=== PATIENT | male | born 1975 | race Caucasian/White ===

== ENCOUNTER 2019-06-27 22:59 | Inpatient (IN) ==
[2019-06-27] MEDS ORDERED: ACTIDOSE WITH SORBITOL ONE (23:19)
[2019-06-27] MEDS ORDERED: ACTIDOSE WITH SORBITOL NG ONE (23:22)
--- NOTE | 2019-06-27 23:38 | DR.PSYCH ---
HPI Time Seen Time Seen by Provider: 06/27/19 23:19 Complaint Chief Complaint Doctors Comments: Patient brought in via EMS stating he took almost a whole bottle of Benadryl 25mg with a count on 365. Patient's program development manager is here and states he saw the patient and his a Kaznachey tonight and he said he said he was tired of living like this and he encouraged him to pray but states he was drinking at the time and he promised him he would go home and go to bed but an hour and a half later his called stating she called the ambulance because he had taken a bottle of Benadryl around six o'clock. EMS states that he told them he did not want to live. states he got into trouble with the law and they were on their way to get him and he took a bottle of Benadryl. Patient states that is why he took the Benadryl and he was trying to kill himself. states he took an over dose of Tylenol in the past and has had problems with depression. Self Treatment fo Chief Complaint: none Reviewed Nurses Notes Review: Yes Source History Provided: EMS and Other (program development manager) Mode of Arrival Mode of Arrival: EMS Timing Onset of Chief Complaint: 06/27/19 Came on: Suddenly Duration Duration: Constant How lon Duration: Hours Context Presents With: Depression Ideation: Suicidal Plan: Overdose Stressors: Family History of: Depression Quality Quality: None Severity Severity: Able to care for self Associated signs and symptoms Intoxification: ETOH ROS Review of Systems Constitutional: No Symptoms Reported Eyes: No Symptoms Reported ENTM: No Symptoms Reported Respiratoy: No Symptoms Reported Cardiovascular: No Symptoms Reported Gastrointestinal/Abdominal: No Symptoms Reported Genitourinary: No Symptoms Reported Neurological: Depressed Musculoskeletal: No Symptoms Reported Integumentary: No Symptoms Reported Hematologic/Lymphatic: No Symptoms Reported Endocrine: No Symptoms Reported Psychiatric: Depression PE Vitals Vitals: Temperature 96.9 F Pulse Rate 102 Respiratory Rate 20 Blood Pressure 178/114 O2 Sat by Pulse Oximetry 99 General Limitations: Altered Mental Status General Appearance: Appears Intoxicated, In Distress and Obese Head Head Exam: Normal Inspection, Atraumatic and Normocephalic Head Exam Physical: negative Laceration, Abrasion, Contusion, Hematoma, Raccoon Eyes, Boateng's Sign, Tenderness of Temporal Artery, CSF Rhinorrhea, CSF Otorrhea and Other Eyes Eye exam: Normal Appearance, PERRL and EOMI; negative Scleral Icterus, Conjunctival Injection, Nystagmus, Miosis, Mydrasis, Periorbital Swelling, Periorbital Tenderness and Other Pupils: Regular, Round: Bilateral and Reactive: Bilateral Sclera/Conjunctival: Normal Inspection: Bilateral ENT ENT Exam: Normal Exam, Normal Oropharynx, Normal External Ear Exam, Mucous Membranes Moist and TM's Normal Bilaterally Neck Neck Exam: Normal Inspection, Full ROM and Trachea Midline Chest Chest Inspection: Normal Inspection and Symmetric Chest Wall Rise Respiratory Respiratory Exam: Normal Lung Sounds Bilat; negative Accessory Muscle Use, Chest Wall Tenderness, Prolonged Expiratory Phase, Respiratory Distress, Stridor and Other Respiratory Exam: Bilateral: Clear to Auscultation Cardiovascular Cardiovascular Exam: Regular Rate, Normal Rhythm, Tachycardia and Normal Heart Sounds Abdominal Exam Abdominal Exam: Normal Inspection, Normal Bowel Sounds and Soft; negative Distention, Tenderness, Guarding, Rebound, Rigidity, Dimnished Bowel Sounds, Hyperactive Bowel Sounds, Hypoactive Bowel Sounds, Organomegaly, Trauma, Incision, Ascites, Mass, Bruit, Pulsatile Mass, Hernia and Other Abdominal Tenderness: negative RUQ, RLQ, LUQ, LLQ, Epigastrium, Suprapubic, Diffuse, Mild, Moderate, Severe and Other Extremities Extremities Exam: Normal Inspection, Full ROM and Normal Capillary Refill; negative Tenderness, Edema, Joint Swelling, Calf Tenderness and Other Back Back Exam: Normal Inspection and Full ROM; negative Tenderness, (R) CVA Tenderness, (L) CVA Tenderness, Muscle Spasm, Paraspinal Tenderness, Vertebral Tenderness, Rashes, (R) Sciatic Notch Tenderness, (L) Sciatic Notch Tendern, (R) Straight Leg Raise, (L) Straight Leg Raise and Other Neurologic Neurological Exam: Oriented X3 (patient will not consistently answer questions), CN II-XII Intact, Normal Gait (gait not tested) and Reflexes Normal Patient Oriented To: Person Cranial Nerve Exam: EOM Function (II, III, IV, ): Normal, Facial Palsy (VII): Normal and Gag reflex (XI): Normal Cerebellar Function: Normal Gait (gait not tested) Motor Strength - LUE: 5/5 Motor Strength - RUE: 5/5 Motor Strength - LLE: 5/5 Motor Strength - RLE: 5/5 Sensory Exam Upper Extremity: Light Touch: Normal Sensory Exam Lower Extremity: Light Touch: Normal and 2 Point Discrimination: Normal DTR: bicep (L): 2+, bicep (R): 2+, Patellar (L): 3+ and patellar (R): 3+ Psychiatric Psychiatric Exam: Depressed and Suicidal Ideation Expanded Psychiatric Exam: Poor Eye Contact, Uncooperative and Refuses to Answer Skin Skin Exam: Warm, Dry, Intact and Normal Color Type of Lesion: negative Rash, Abscess, Laceration, Foreign Body, Bite/Sting, Abrasion and Other Distribution: negative Generalized, Involves Palms/Soles, Head, Face, Neck, Thorax, Chest, Back, Abdomen, Genitals, LUE, LLE, RUE, RLE and Other ROR Labs Reviewed Result Diagrams: 06/27/19 23:33 06/27/19 23:33 Laboratory: WBC 10.5 X10^3/uL (3.6-10.0) H 06/27/19 23:33 RBC 4.36 X10^6/uL (4.7-6.0) L 06/27/19 23: Hgb 14.6 g/dL (13.5-18.0) 06/27/19 23:33 Hct 42.2 % (42.0-54.0) 06/27/19 23: MCV 96.7 fL (80.0-100.0) 06/27/19 23: MCH 33.6 pg (27.0-34.0) 06/27/19 23: MCHC 34.7 g/dL (33.0-35.0) 06/27/19 23: RDW 13.9 % (11.6-16.5) 06/27/19 23: Plt Count 301 X10^3/uL (150.0-450.0) 06/27/19 23: MPV 8.0 fL (7.4-11.0) 06/27/19 23:33 Neut % (Auto) 71.2 % (42.0-75.0) 06/27/19 23: Lymph % (Auto) 18.5 % (21.0-51.0) L 06/27/19 23: [place] % (Auto) 9.7 % (0.0-13.0) 06/27/19 23: Eos % (Auto) 0.1 % (0.9-2.9) L 06/27/19 23:33 Baso % (Auto) 0.5 % (0.2-1.0) 06/27/19 23:33 Neut # (Auto) 7.4 x10^3/uL (2.2-4.8) H 06/27/19 23:33 Lymph # (Auto) 1.9 X10^3/uL (1.3-2.9) 06/27/19 23:33 [place] # (Auto) 1.0 x10^3/uL (0.3-0.8) H 06/27/19 23:33 Eos # (Auto) 0.0 x10^3/uL (0.0-0.2) 06/27/19 23: Baso # (Auto) 0.1 X10^3/uL (0.0-0.1) 06/27/19 23:33 Absolute Nucleated RBC 0.1 /100WBC 06/27/19 23:33 PT 12.2 SECONDS (11.8-14.3) 06/27/19 23:33 INR Target Range - 06/27/19 23: INR 0.94 (0.8-1.3) 06/27/19 23:33 APTT 23.0 SECONDS (22.9-36.5) 06/27/19 23:33 PTT Comment - 06/27/19 23:33 Sodium 141 mmol/L (136-145) 06/27/19 23:33 Corrected Sodium 141 mmol/L (136-145) 06/27/19 23:33 Potassium 2.9 mmol/L (3.5-5.1) L* 06/27/19 23:33 Chloride 101 mmol/L (98-107) 06/27/19 23:33 Carbon Dioxide 25.9 mmol/L (21-32) 06/27/19 23:33 BUN 15 mg/dL (7-18) 06/27/19 23:33 Creatinine 1.14 mg/dL (0.70-1.30) 06/27/19 23:33 Est GFR (MDRD) Af Amer > 60 (>60) 06/27/19 23:33 Est GFR (MDRD) Non-Af > 60 (>60) 06/27/19 23:33 Glucose 112 mg/dL (65-99) H 06/27/19 23:33 Calcium 8.7 mg/dL (8.5-10.1) 06/27/19 23:33 Corrected Calcium TNP 06/27/19 23:33 Magnesium 2.2 mg/dL (1.7-2.9) 06/27/19 23:33 Total Bilirubin 0.40 mg/dL (0.2-1.0) 06/27/19 23:33 AST 52 Units/L (15-37) H 06/27/19 23:33 ALT 86 Units/L (12-78) H 06/27/19 23:33 Alkaline Phosphatase 84 Units/L (46-116) 06/27/19 23:33 Creatine Kinase 286 Units/L (39-308) 06/27/19 23:33 CK-MB (CK-2) 2.1 ng/mL (0-4.0) 06/27/19 23:33 CK/CKMB % Calc 0.7 % (<4) 06/27/19 23:33 Troponin I < 0.02 ng/mL (0-1.5) 06/27/19 23:33 Total Protein 8.1 g/dL (6.4-8.2) 06/27/19 23:33 Albumin 4.3 g/dL (3.4-5.0) 06/27/19 23:33 Globulin 3.8 g/dL (2.5-4.5) 06/27/19 23:33 Albumin/Globulin Ratio 1.1 Ratio (1.1-2.1) 06/27/19 23:33 Specimen Type Catherized urine 06/27/19 23:50 Urine Color Yellow (YELLOW) 06/27/19 23:50 Urine Appearance Clear (CLEAR) 06/27/19 23:50 Urine pH 5.0 (5.0 - 8.0) 06/27/19 23:50 Ur Specific [place] 1.020 (1.000-1.030) 06/27/19 23:50 Urine Protein 2+ (NEGATIVE) 06/27/19 23:50 Urine Glucose (UA) Negative (NEGATIVE) 06/27/19 23:50 Urine Ketones 2+ (NEGATIVE) 06/27/19 23:50 Urine Occult Blood Negative (NEGATIVE) 06/27/19 23:50 Urine Nitrite Negative (NEGATIVE) 06/27/19 23:50 Urine Bilirubin Negative (NEGATIVE) 06/27/19 23:50 Urine Urobilinogen Normal (NORMAL) 06/27/19 23:50 Ur Leukocyte Esterase Negative (NEGATIVE) 06/27/19 23:50 Urine RBC 3-5 /HPF (0-3) A 06/27/19 23:50 Urine WBC None seen /HPF (0-5) 06/27/19 23:50 Ur Squamous Epith Cells Rare /HPF (NEGATIVE) 06/27/19 23:50 Urine Bacteria Negative /HPF (NEGATIVE) 06/27/19 23:50 Ur Culture Indicated? No/not indicated 06/27/19 23:50 Salicylates < 2.8 mg/dL (2.8-20) L 06/27/19 23:33 Urine Opiates Screen Negative (NEG=<300) 06/27/19 23:50 Urine Methadone Screen Negative (NEG=<300) 06/27/19 23:50 Acetaminophen 0.0 ug/mL (10-30) L 06/27/19 23:33 Ur Barbiturates Screen Negative (NEG=<200) 06/27/19 23:50 Ur Phencyclidine Scrn Negative (NEG=<25) 06/27/19 23:50 Ur Amphetamines Screen Negative (NEG=<1000) 06/27/19 23:50 U Benzodiazepines Scrn Negative (NEG=<200) 06/27/19 23:50 Urine Cocaine Screen Negative (NEG=<300) 06/27/19 23:50 U Marijuana (THC) Screen Negative (NEG=<50) 06/27/19 23:50 Ethyl Alcohol mg/dL 156 mg/dL (0-19.9) H 06/27/19 23:33 XRAY XRAY Interpreted by: Radiologist XRAY Findings: CXR: No acute cardiopulmonary process. Satisfactory position of catheter EKG Rate: 109 [place]: Normal Rhythm: NSR and ST Hypertrophy: LAE ST: Nonsp Opioid Opioid Risk Tool Total: 0 Total Score Risk Category: Low Risk Copyright: Jhon PARKER predicting aberrant behaviors
[2019-06-27 23:44] LABS: BASOPHILS # (AUTO) 0.1 X10^3/uL (0.0-0.1); BASOPHILS % (AUTO) 0.5 % (0.2-1.0); EOSINOPHILS % (AUTO) 0.1 % (0.9-2.9); HEMATOCRIT 42.2 % (42.0-54.0); HEMOGLOBIN 14.6 g/dL (13.5-18.0); LYMPHOCYTES # (AUTO) 1.9 X10^3/uL (1.3-2.9); LYMPHOCYTES % (AUTO) 18.5 % (21.0-51.0); MEAN CORPUSCULAR HEMOGLOBIN 33.6 pg (27.0-34.0); MEAN CORPUSCULAR HGB CONC 34.7 g/dL (33.0-35.0); MEAN CORPUSCULAR VOLUME 96.7 fL (80.0-100.0); MONOCYTES % (AUTO) 9.7 % (0.0-13.0); NEUTROPHILS # (AUTO) 7.4 x10^3/uL (2.2-4.8); NEUTROPHILS % (AUTO) 71.2 % (42.0-75.0); PLATELET COUNT 301 X10^3/uL (150.0-450.0); RED BLOOD COUNT 4.36 X10^6/uL (4.7-6.0); RED CELL DISTRIBUTION WIDTH 13.9 % (11.6-16.5); WHITE BLOOD COUNT 10.5 X10^3/uL (3.6-10.0)
[2019-06-27] MEDS ORDERED: NS 1000 ML 1,000 ML IV SCH (23:45)
--- NOTE | 2019-06-27 23:55 | RAD ---
HISTORYChest painSTUDYCHEST, 1 VIEWCOMPARISONNoneFINDINGSThe enteric catheter extends below the diaphragm with distal tip projecting near the gastric fundus. Lungs are clear. No consolidation or effusion. Heart size is accentuated by low lung volumes, likely within normal limits. No pulmonary vasculature congestion. No acute osseous findings.IMPRESSIONSatisfactory position of enteric catheter. No acute cardiopulmonary process.Electronically signed by: Landon Ty (Jun 27, 2019 23:54:10)
[2019-06-28 00:03] LABS: ALANINE AMINOTRANSFERASE 86 Units/L (12-78); ALBUMIN 4.3 g/dL (3.4-5.0); ALKALINE PHOSPHATASE 84 Units/L (46-116); ASPARTATE AMINO TRANSFERASE 52 Units/L (15-37); BLOOD UREA NITROGEN 15 mg/dL (7-18); CALCIUM 8.7 mg/dL (8.5-10.1); CARBON DIOXIDE 25.9 mmol/L (21-32); CHLORIDE 101 mmol/L (98-107); CKMB % 0.7 % (<4); COR NA(FOR HYPERGLY) 141 mmol/L (136-145); CREATINE KINASE 286 Units/L (39-308); CREATINE KINASE MB 2.1 ng/mL (0-4.0); CREATININE 1.14 mg/dL (0.70-1.30); MAGNESIUM 2.2 mg/dL (1.7-2.9); SODIUM 141 mmol/L (136-145); TOTAL PROTEIN 8.1 g/dL (6.4-8.2); TROPONIN I < 0.02 ng/mL (0-1.5); eGFR NON BLACK RACES > 60 (>60)
[2019-06-28] MEDS ORDERED: K-LYTE EFFERVESCENT PO ONE (00:09)
[2019-06-28 00:24] LABS: SALICYLATE < 2.8 mg/dL (2.8-20)
[2019-06-28 00:50] LABS: APPEARANCE,URINE CLEAR (CLEAR); COLOR,URINE YELLOW (YELLOW)
[2019-06-28 00:53] LABS: GLUCOSE, URINE NEGATIVE (NEGATIVE); KETONES,URINE 2+ (NEGATIVE); PROTEIN,URINE 2+ (NEGATIVE)
[2019-06-28 00:54] LABS: BILIRUBIN,URINE NEGATIVE (NEGATIVE); BLOOD/HEMOGLOBIN,URINE NEGATIVE (NEGATIVE); LEUKOCYTE ESTERASE ,URINE NEGATIVE (NEGATIVE); NITRITES,URINE NEGATIVE (NEGATIVE); UROBILINOGEN,URINE NORMAL (NORMAL)
[2019-06-28 00:55] LABS: BACTERIA,URINE NEGATIVE /HPF (NEGATIVE); SQUAMOUS EPITHELIAL CELL,UR RARE /HPF (NEGATIVE)
[2019-06-28] MEDS ORDERED: HumuLIN R SC PRN (01:19)
[2019-06-28] MEDS ORDERED: K-LYTE EFFERVESCENT ONE (01:27)
[2019-06-28] MEDS ORDERED: D5 1/2 NS + KCL 20 MEQ/L 1,000 ML IV ONE (03:38)
[2019-06-28] MEDS: D5 1/2 NS + KCL 20 MEQ/L 1,000 ML IV SCH ×2 (04:53→19:28)
[2019-06-28 06:25] VITALS: BMI 28.3
[2019-06-28 06:36] LABS: BASOPHILS % (AUTO) 0.4 % (0.2-1.0); HEMATOCRIT 41.9 % (42.0-54.0); HEMOGLOBIN 14.5 g/dL (13.5-18.0); LYMPHOCYTES # (AUTO) 1.2 X10^3/uL (1.3-2.9); LYMPHOCYTES % (AUTO) 14.1 % (21.0-51.0); MEAN CORPUSCULAR HEMOGLOBIN 33.7 pg (27.0-34.0); MEAN CORPUSCULAR HGB CONC 34.7 g/dL (33.0-35.0); MEAN PLATELET VOLUME 8.2 fL (7.4-11.0); MONOCYTES # (AUTO) 0.9 x10^3/uL (0.3-0.8); MONOCYTES % (AUTO) 10.5 % (0.0-13.0); NEUTROPHILS # (AUTO) 6.4 x10^3/uL (2.2-4.8); PLATELET COUNT 279 X10^3/uL (150.0-450.0); RED BLOOD COUNT 4.32 X10^6/uL (4.7-6.0); RED CELL DISTRIBUTION WIDTH 14.1 % (11.6-16.5); WHITE BLOOD COUNT 8.5 X10^3/uL (3.6-10.0)
[2019-06-28 06:37] LABS: ALANINE AMINOTRANSFERASE 83 Units/L (12-78); ALBUMIN 4.2 g/dL (3.4-5.0); ALKALINE PHOSPHATASE 81 Units/L (46-116); ASPARTATE AMINO TRANSFERASE 51 Units/L (15-37); BLOOD UREA NITROGEN 12 mg/dL (7-18); CALCIUM 8.9 mg/dL (8.5-10.1); CARBON DIOXIDE 24.5 mmol/L (21-32); CHLORIDE 101 mmol/L (98-107); CHOL/HDL RATIO 2.9 (0.0-5.0); CHOLESTEROL 227 mg/dL (0-200); CKMB % 0.6 % (<4); CREATINE KINASE 343 Units/L (39-308); CREATINE KINASE MB 2.1 ng/mL (0-4.0); CREATININE 1.04 mg/dL (0.70-1.30); HDL CHOLESTEROL 79 mg/dL (40-60); SODIUM 140 mmol/L (136-145); TOTAL PROTEIN 8.1 g/dL (6.4-8.2); TRIGLYCERIDES 154 mg/dL (0-150); TROPONIN I < 0.02 ng/mL (0-1.5); eGFR NON BLACK RACES > 60 (>60)
[2019-06-28] MEDS ORDERED: K-DUR TAB 20 MEQ PO PRN (08:02)
[2019-06-28] MEDS ORDERED: KLOR-CON PO PRN (08:02)
[2019-06-28] MEDS ORDERED: POTASSIUM CHL 60 MEQ/NS 0.45% 500 ML IV PRN (08:02)
[2019-06-28] MEDS ORDERED: MICRO K EXTEN CAP 10 MEQ PO PRN (08:02)
[2019-06-28] MEDS ORDERED: POTASSIUM CHL 40 MEQ/NS 0.45% 500 ML IV PRN (08:02)
[2019-06-28] MEDS ORDERED: MAGNESIUM SULFATE 1 GRAM/100 mL PREMIX 1 GM/100 ML BAG IV PRN (08:02)
[2019-06-28] MEDS ORDERED: K-RIDER 10 MEQ/NS 100 ML 10 MEQ/100 ML BAG IV PRN (08:02)
[2019-06-28] MEDS ORDERED: POTASSIUM CHLORIDE LIQ 20 MEQ UDC ONE (08:09)
[2019-06-28] MEDS ORDERED: ATIVAN TAB 0.5 MG ONE (08:10)
[2019-06-28] MEDS ORDERED: MAGNESIUM SULFATE 1 GRAM/100 mL PREMIX 1 G/100 ML BAG IV ONE (08:10)
[2019-06-28] MEDS: ATIVAN TAB 1 MG PO PRN ×3 (08:12→21:05)
[2019-06-28] MEDS: POTASSIUM CHLORIDE LIQ 20 MEQ UDC PO PRN ×2 (08:14→14:29)
--- NOTE | 2019-06-28 10:05 | DR.H&P ---
H&P History & Physical for Day of: H&P Date: 06/28/19 Chief Complaint Chief Complaint: Overdose Allergies Allergies Allergy/AdvReac Type Severity Reaction Status Date / Time shellfish derived Allergy Verified 06/27/19 23:54 History of Present Illness History of Present Illness: Pt is a 44 yo m pmhx MDD, Alcohol/Drug abuse(1/2 gallon whisky every 3 days or less, occasional use of cocaine) admitted after having intentional overdose on Benadryl. Pt has history of depression and earlier yesterday afternoon was speaking to [employer] [employer] and had considered going to [facility] rehab. However, when he went home that night he started drinking and per was "in trouble with the law". Law enforcement was on the way to the house that triggered him to intentionally overdose on Benadryl. He took unknown amount but states "most of bottle" of Benadryl 25mg and had stated it was to "end his life". He has had an event like this in the past but with Tylenol. He is on an antidepressant Lexapro, but admits to not taking for the past 3 days. Initial labs: K 2.9, CK 286, AST 52, ALT 86. CXR negative. Poison control was reached that recommended monitoring and keeping K>4.0, magnesium wnl, and monitoring QRS on Ekg. Will continue to monitor and follow up labs in morning. Past Medical History Past Medical History: CHF and Depression Family History Family Medical History: Diabetes Mellitus, Cancer, MD and Sudden Cardiac Social History Have you used tobacco products in the last 12 months: No Type of Tobacco Use: None Does any household member use tobacco: No Alcohol Use: Heavy and DAILY Drug Use: Prescription Drugs Medications Home Medications: shellfish derived Allergy (Verified 06/27/19 23:54) CONTINUE taking the following medications carvedilol 6.25 mg PO BID 06/27/19 [History] escitalopram oxalate 20 mg PO DAILY 06/27/19 [History] lisinopril 2.5 mg PO DAILY 06/27/19 [History] quetiapine 100 mg PO HS 06/27/19 [History] tamsulosin [Flomax] 0.4 mg PO QHS 06/27/19 [History] Labs Result Diagrams: 06/28/19 04:18 06/28/19 04:18 Labs: Laboratory WBC 8.5 X10^3/uL (3.6-10.0) 06/28/19 04:18 RBC 4.32 X10^6/uL (4.7-6.0) L 06/28/19 04:18 Hgb 14.5 g/dL (13.5-18.0) 06/28/19 04:18 Hct 41.9 % (42.0-54.0) L 06/28/19 04:18 MCV 97.0 fL (80.0-100.0) 06/28/19 04:18 MCH 33.7 pg (27.0-34.0) 06/28/19 04:18 MCHC 34.7 g/dL (33.0-35.0) 06/28/19 04:18 RDW 14.1 % (11.6-16.5) 06/28/19 04:18 Plt Count 279 X10^3/uL (150.0-450.0) 06/28/19 04:18 MPV 8.2 fL (7.4-11.0) 06/28/19 04:18 Neut % (Auto) 75.0 % (42.0-75.0) 06/28/19 04:18 Lymph % (Auto) 14.1 % (21.0-51.0) L 06/28/19 04:18 [place] % (Auto) 10.5 % (0.0-13.0) 06/28/19 04:18 Eos % (Auto) 0.0 % (0.9-2.9) L 06/28/19 04:18 Baso % (Auto) 0.4 % (0.2-1.0) 06/28/19 04:18 Neut # (Auto) 6.4 x10^3/uL (2.2-4.8) H 06/28/19 04:18 Lymph # (Auto) 1.2 X10^3/uL (1.3-2.9) L 06/28/19 04:18 [place] # (Auto) 0.9 x10^3/uL (0.3-0.8) H 06/28/19 04:18 Eos # (Auto) 0.0 x10^3/uL (0.0-0.2) 06/28/19 04:18 Baso # (Auto) 0.0 X10^3/uL (0.0-0.1) 06/28/19 04:18 Absolute Nucleated RBC 0.0 /100WBC 06/28/19 04:18 PT 12.4 SECONDS (11.8-14.3) 06/28/19 04:18 INR Target Range - 06/28/19 04:18 INR 0.96 (0.8-1.3) 06/28/19 04:18 APTT 23.2 SECONDS (22.9-36.5) 06/28/19 04:18 PTT Comment - 06/28/19 04:18 Sodium 140 mmol/L (136-145) 06/28/19 04:18 Corrected Sodium TNP 06/28/19 04:18 Potassium 3.2 mmol/L (3.5-5.1) L 06/28/19 04:18 Chloride 101 mmol/L (98-107) 06/28/19 04:18 Carbon Dioxide 24.5 mmol/L (21-32) 06/28/19 04:18 BUN 12 mg/dL (7-18) 06/28/19 04:18 Creatinine 1.04 mg/dL (0.70-1.30) 06/28/19 04:18 Est GFR (MDRD) Af Amer > 60 (>60) 06/28/19 04:18 Est GFR (MDRD) Non-Af > 60 (>60) 06/28/19 04:18 Glucose 109 mg/dL (65-99) H 06/28/19 04:18 Calcium 8.9 mg/dL (8.5-10.1) 06/28/19 04:18 Corrected Calcium TNP 06/28/19 04:18 Magnesium 2.0 mg/dL (1.7-2.9) 06/28/19 04:18 Total Bilirubin 0.40 mg/dL (0.2-1.0) 06/28/19 04:18 AST 51 Units/L (15-37) H 06/28/19 04:18 ALT 83 Units/L (12-78) H 06/28/19 04:18 Alkaline Phosphatase 81 Units/L (46-116) 06/28/19 04:18 Creatine Kinase 343 Units/L (39-308) H 06/28/19 04:18 CK-MB (CK-2) 2.1 ng/mL (0-4.0) 06/28/19 04:18 CK/CKMB % Calc 0.6 % (<4) 06/28/19 04:18 Troponin I < 0.02 ng/mL (0-1.5) 06/28/19 04:18 Total Protein 8.1 g/dL (6.4-8.2) 06/28/19 04:18 Albumin 4.2 g/dL (3.4-5.0) 06/28/19 04:18 Globulin 3.9 g/dL (2.5-4.5) 06/28/19 04:18 Albumin/Globulin Ratio 1.1 Ratio (1.1-2.1) 06/28/19 04:18 Triglycerides 154 mg/dL (0-150) H 06/28/19 04:18 Cholesterol 227 mg/dL (0-200) H 06/28/19 04:18 LDL Cholesterol, Calc 117 mg/dL (0-100) H 06/28/19 04:18 HDL Cholesterol 79 mg/dL (40-60) H 06/28/19 04:18 Cholesterol/HDL Ratio 2.9 (0.0-5.0) 06/28/19 04:18 Specimen Type Catherized urine 06/27/19 23:50 Urine Color Yellow (YELLOW) 06/27/19 23:50 Urine Appearance Clear (CLEAR) 06/27/19 23:50 Urine pH 5.0 (5.0 - 8.0) 06/27/19 23:50 Ur Specific [place] 1.020 (1.000-1.030) 06/27/19 23:50 Urine Protein 2+ (NEGATIVE) 06/27/19 23:50 Urine Glucose (UA) Negative (NEGATIVE) 06/27/19 23:50 Urine Ketones 2+ (NEGATIVE) 06/27/19 23:50 Urine Occult Blood Negative (NEGATIVE) 06/27/19 23:50 Urine Nitrite Negative (NEGATIVE) 06/27/19 23:50 Urine Bilirubin Negative (NEGATIVE) 06/27/19 23:50 Urine Urobilinogen Normal (NORMAL) 06/27/19 23:50 Ur Leukocyte Esterase Negative (NEGATIVE) 06/27/19 23:50 Urine RBC 3-5 /HPF (0-3) A 06/27/19 23:50 Urine WBC None seen /HPF (0-5) 06/27/19 23:50 Ur Squamous Epith Cells Rare /HPF (NEGATIVE) 06/27/19 23:50 Urine Bacteria Negative /HPF (NEGATIVE) 06/27/19 23:50 Ur Culture Indicated? No/not indicated 06/27/19 23:50 Salicylates < 2.8 mg/dL (2.8-20) L 06/27/19 23:33 Urine Opiates Screen Negative (NEG=<300) 06/27/19 23:50 Urine Methadone Screen Negative (NEG=<300) 06/27/19 23:50 Acetaminophen 0.0 ug/mL (10-30) L 06/27/19 23:33 Ur Barbiturates Screen Negative (NEG=<200) 06/27/19 23:50 Ur Phencyclidine Scrn Negative (NEG=<25) 06/27/19 23:50 Ur Amphetamines Screen Negative (NEG=<1000) 06/27/19 23:50 U Benzodiazepines Scrn Negative (NEG=<200) 06/27/19 23:50 Urine Cocaine Screen Negative (NEG=<300) 06/27/19 23:50 U Marijuana (THC) Screen Negative (NEG=<50) 06/27/19 23:50 Ethyl Alcohol mg/dL 156 mg/dL (0-19.9) H 06/27/19 23:33 Review of Systems Constitutional: Weakness; denies Fever and Chills Eyes: No Symptoms Reported ENT: No Symptoms Reported Respiratory: No Symptoms Reported Gastrointestinal: Abdominal Pain (mild epigastric ) Genitourinary: No Symptoms Reported Musculoskeletal: No Symptoms Reported Skin: No Symptoms Reported Neurological: No Symptoms Reported Physical Exam Vital Signs: Temperature 99.8 F Pulse Rate [Right Brachial] 112 Pulse Rate 99 Respiratory Rate 19 Blood Pressure [Right Arm] 170/98 Blood Pressure 148/86 O2 Sat by Pulse Oximetry 93 Oriented: Normal Eyes: Normal Ear: Normal Nose: Normal Respiratory: Clear Throughout Cardiovascular: Normal : Normal Auscultation: Bowel Sounds: Normal Palpation: Normal Tenderness: Epigastric and Mild Skin: Normal Musculoskeletal: Normal Psychiatric: Anxiety and Depression Mood Description: Calm Affect: Depressed Speech Pattern: Clear Assessment/Plan (1) Drug ingestion: Status: Acute Plan: Intentional overdose on Benadryl Continue to monitor vitals, labs, and telemetry. (2) Depression with suicidal ideation: Status: Acute Plan: Will contact psych facility once patient is stable. (3) Acute hypokalemia: Status: Acute Plan: Per protocol (4) Alcohol intoxication: Status: Acute Plan: Ativan prn, monitor for withdrawals. Review H&P Reviewed: Yes Patient was examined?: Yes
[2019-06-28] MEDS ORDERED: LOVENOX INJ 100 MG SYR SC ONE (16:07)
[2019-06-28] MEDS ORDERED: TYLENOL 325 MG TAB PO ONE (16:07)
[2019-06-28] MEDS ORDERED: LEVAQUIN PREMIX IV 750 MG 0 MG/0 ML BAG IV ONE (16:07)
[2019-06-29] MEDS: D5 1/2 NS + KCL 20 MEQ/L 1,000 ML IV SCH ×3 (02:58→19:02)
[2019-06-29 07:11] LABS: BASOPHILS % (AUTO) 0.8 % (0.2-1.0); EOSINOPHILS # (AUTO) 0.1 x10^3/uL (0.0-0.2); HEMATOCRIT 37.6 % (42.0-54.0); HEMOGLOBIN 12.9 g/dL (13.5-18.0); LYMPHOCYTES # (AUTO) 1.7 X10^3/uL (1.3-2.9); LYMPHOCYTES % (AUTO) 30.5 % (21.0-51.0); MEAN CORPUSCULAR HEMOGLOBIN 33.3 pg (27.0-34.0); MEAN CORPUSCULAR HGB CONC 34.3 g/dL (33.0-35.0); MEAN PLATELET VOLUME 7.8 fL (7.4-11.0); MONOCYTES # (AUTO) 0.5 x10^3/uL (0.3-0.8); MONOCYTES % (AUTO) 9.2 % (0.0-13.0); NEUTROPHILS # (AUTO) 3.2 x10^3/uL (2.2-4.8); NEUTROPHILS % (AUTO) 58.5 % (42.0-75.0); PLATELET COUNT 212 X10^3/uL (150.0-450.0); RED BLOOD COUNT 3.88 X10^6/uL (4.7-6.0); WHITE BLOOD COUNT 5.5 X10^3/uL (3.6-10.0)
[2019-06-29 07:24] LABS: ALANINE AMINOTRANSFERASE 62 Units/L (12-78); ALBUMIN 3.5 g/dL (3.4-5.0); ALKALINE PHOSPHATASE 74 Units/L (46-116); ASPARTATE AMINO TRANSFERASE 30 Units/L (15-37); BLOOD UREA NITROGEN 11 mg/dL (7-18); CALCIUM 8.2 mg/dL (8.5-10.1); CARBON DIOXIDE 26.9 mmol/L (21-32); CHLORIDE 104 mmol/L (98-107); CREATININE 1.01 mg/dL (0.70-1.30); SODIUM 139 mmol/L (136-145); TOTAL PROTEIN 6.8 g/dL (6.4-8.2); eGFR NON BLACK RACES > 60 (>60)
--- NOTE | 2019-06-29 10:52 | PCM.PROG ---
Progress Note Progress Note for Day of Date of Exam: 06/29/19 Subjective Subjective: Pt is a 44 yo m pmhx MDD, Alcohol/Drug abuse(1/2 gallon whisky every 3 days or less, occasional use of cocaine) admitted after having intentional overdose on Benadryl. He is doing well this morning, resting comfortably. Quach catheter was removed yesterday. His vitals have remained stable, and his labs have improved with liver enzymes trending down to normal limits. Due to intentional overdose, he will need to be transferred to facility for further evaluation. Continue to monitor. Past Medical Family Social History Past Med/Fam/Surg Hx: No changes since H&P Allergies: Allergies shellfish derived Allergy (Verified 06/27/19 23:54) Review of Systems ROS: No change since H&P Vital Signs and I&O's Vital Signs: Temperature 98.7 F Pulse Rate [Right Brachial] 112 Pulse Rate 83 Respiratory Rate 15 Blood Pressure [Right Arm] 170/98 Blood Pressure 123/78 O2 Sat by Pulse Oximetry 98 Intake and Output: Intake & Output 06/26/19 06/27/19 06/28/19 06/29/19 23:59 23:59 23:59 23:59 Intake Total 1926 / 1926 927 / 927 Output Total 900 / 900 Balance 1026 / 1026 927 / 927 Physical Exam Oriented: Normal Eyes: Normal Ear: Normal Nose: Normal Respiratory: Normal Cardiovascular: Normal : Normal Auscultation: Bowel Sounds: Normal Tenderness: Normal Skin: Normal Musculoskeletal: Normal Psychiatric: Depression Mood Description: Calm Affect: Depressed Speech Pattern: Clear Laboratory and Diagnostics Result Diagrams: 06/29/19 06:45 06/29/19 06:45 Labs: Laboratory WBC 5.5 X10^3/uL (3.6-10.0) 06/29/19 06:45 RBC 3.88 X10^6/uL (4.7-6.0) L 06/29/19 06:45 Hgb 12.9 g/dL (13.5-18.0) L 06/29/19 06:45 Hct 37.6 % (42.0-54.0) L 06/29/19 06:45 MCV 97.0 fL (80.0-100.0) 06/29/19 06:45 MCH 33.3 pg (27.0-34.0) 06/29/19 06:45 MCHC 34.3 g/dL (33.0-35.0) 06/29/19 06:45 RDW 14.0 % (11.6-16.5) 06/29/19 06:45 Plt Count 212 X10^3/uL (150.0-450.0) 06/29/19 06:45 MPV 7.8 fL (7.4-11.0) 06/29/19 06:45 Neut % (Auto) 58.5 % (42.0-75.0) 06/29/19 06:45 Lymph % (Auto) 30.5 % (21.0-51.0) 06/29/19 06:45 [place] % (Auto) 9.2 % (0.0-13.0) 06/29/19 06:45 Eos % (Auto) 1.0 % (0.9-2.9) 06/29/19 06:45 Baso % (Auto) 0.8 % (0.2-1.0) 06/29/19 06:45 Neut # (Auto) 3.2 x10^3/uL (2.2-4.8) 06/29/19 06:45 Lymph # (Auto) 1.7 X10^3/uL (1.3-2.9) 06/29/19 06:45 [place] # (Auto) 0.5 x10^3/uL (0.3-0.8) 06/29/19 06:45 Eos # (Auto) 0.1 x10^3/uL (0.0-0.2) 06/29/19 06:45 Baso # (Auto) 0.0 X10^3/uL (0.0-0.1) 06/29/19 06:45 Absolute Nucleated RBC 0.0 /100WBC 06/29/19 06:45 PT 12.4 SECONDS (11.8-14.3) 06/28/19 04:18 INR Target Range - 06/28/19 04:18 INR 0.96 (0.8-1.3) 06/28/19 04:18 APTT 23.2 SECONDS (22.9-36.5) 06/28/19 04:18 PTT Comment - 06/28/19 04:18 Sodium 139 mmol/L (136-145) 06/29/19 06:45 Corrected Sodium TNP 06/29/19 06:45 Potassium 3.9 mmol/L (3.5-5.1) 06/29/19 06:45 Chloride 104 mmol/L (98-107) 06/29/19 06:45 Carbon Dioxide 26.9 mmol/L (21-32) 06/29/19 06:45 BUN 11 mg/dL (7-18) 06/29/19 06:45 Creatinine 1.01 mg/dL (0.70-1.30) 06/29/19 06:45 Est GFR (MDRD) Af Amer > 60 (>60) 06/29/19 06:45 Est GFR (MDRD) Non-Af > 60 (>60) 06/29/19 06:45 Glucose 108 mg/dL (65-99) H 06/29/19 06:45 POC Glucose (mg/dL) 114 mg/dL (65-99) H 06/29/19 06:24 Calcium 8.2 mg/dL (8.5-10.1) L 06/29/19 06:45 Corrected Calcium TNP 06/29/19 06:45 Magnesium 2.0 mg/dL (1.7-2.9) 06/29/19 06:45 Total Bilirubin 0.80 mg/dL (0.2-1.0) 06/29/19 06:45 AST 30 Units/L (15-37) 06/29/19 06:45 ALT 62 Units/L (12-78) 06/29/19 06:45 Alkaline Phosphatase 74 Units/L (46-116) 06/29/19 06:45 Creatine Kinase 343 Units/L (39-308) H 06/28/19 04:18 CK-MB (CK-2) 2.1 ng/mL (0-4.0) 06/28/19 04:18 CK/CKMB % Calc 0.6 % (<4) 06/28/19 04:18 Troponin I < 0.02 ng/mL (0-1.5) 06/28/19 04:18 Total Protein 6.8 g/dL (6.4-8.2) 06/29/19 06:45 Albumin 3.5 g/dL (3.4-5.0) 06/29/19 06:45 Globulin 3.3 g/dL (2.5-4.5) 06/29/19 06:45 Albumin/Globulin Ratio 1.1 Ratio (1.1-2.1) 06/29/19 06:45 Triglycerides 154 mg/dL (0-150) H 06/28/19 04:18 Cholesterol 227 mg/dL (0-200) H 06/28/19 04:18 LDL Cholesterol, Calc 117 mg/dL (0-100) H 06/28/19 04:18 HDL Cholesterol 79 mg/dL (40-60) H 06/28/19 04:18 Cholesterol/HDL Ratio 2.9 (0.0-5.0) 06/28/19 04:18 Specimen Type Catherized urine 06/27/19 23:50 Urine Color Yellow (YELLOW) 06/27/19 23:50 Urine Appearance Clear (CLEAR) 06/27/19 23:50 Urine pH 5.0 (5.0 - 8.0) 06/27/19 23:50 Ur Specific Bowman 1.020 (1.000-1.030) 06/27/19 23:50 Urine Protein 2+ (NEGATIVE) 06/27/19 23:50 Urine Glucose (UA) Negative (NEGATIVE) 06/27/19 23:50 Urine Ketones 2+ (NEGATIVE) 06/27/19 23:50 Urine Occult Blood Negative (NEGATIVE) 06/27/19 23:50 Urine Nitrite Negative (NEGATIVE) 06/27/19 23:50 Urine Bilirubin Negative (NEGATIVE) 06/27/19 23:50 Urine Urobilinogen Normal (NORMAL) 06/27/19 23:50 Ur Leukocyte Esterase Negative (NEGATIVE) 06/27/19 23:50 Urine RBC 3-5 /HPF (0-3) A 06/27/19 23:50 Urine WBC None seen /HPF (0-5) 06/27/19 23:50 Ur Squamous Epith Cells Rare /HPF (NEGATIVE) 06/27/19 23:50 Urine Bacteria Negative /HPF (NEGATIVE) 06/27/19 23:50 Ur Culture Indicated? No/not indicated 06/27/19 23:50 Salicylates < 2.8 mg/dL (2.8-20) L 06/27/19 23:33 Urine Opiates Screen Negative (NEG=<300) 06/27/19 23:50 Urine Methadone Screen Negative (NEG=<300) 06/27/19 23:50 Acetaminophen 0.0 ug/mL (10-30) L 06/27/19 23:33 Ur Barbiturates Screen Negative (NEG=<200) 06/27/19 23:50 Ur Phencyclidine Scrn Negative (NEG=<25) 06/27/19 23:50 Ur Amphetamines Screen Negative (NEG=<1000) 06/27/19 23:50 U Benzodiazepines Scrn Negative (NEG=<200) 06/27/19 23:50 Urine Cocaine Screen Negative (NEG=<300) 06/27/19 23:50 U Marijuana (THC) Screen Negative (NEG=<50) 06/27/19 23:50 Ethyl Alcohol mg/dL 156 mg/dL (0-19.9) H 06/27/19 23:33 Plan (1) Drug ingestion: Status: Acute Plan: Intentional overdose on Benadryl Continue to monitor vitals, labs, and telemetry. (2) Depression with suicidal ideation: Status: Acute Plan: Will contact psych facility once patient is stable. (3) Acute hypokalemia: Status: Acute Plan: Per protocol (4) Alcohol intoxication: Status: Acute Plan: Ativan prn, monitor for withdrawals.
[2019-06-29] MEDS: ATIVAN TAB 1 MG PO PRN ×2 (16:18→22:46)
[2019-06-29] MEDS ORDERED: AFLURIA II4 or FLUARIX II4 IM ONE ×2 (17:42→17:49)
[2019-06-29] MEDS ORDERED: TYLENOL 325 MG TAB PO PRN (22:12)
[2019-06-29] MEDS ORDERED: TYLENOL 325 MG TAB PO ONE (22:16)
[2019-06-30] MEDS: D5 1/2 NS + KCL 20 MEQ/L 1,000 ML IV SCH (06:20)
--- NOTE | 2019-06-30 08:33 | W.DIS.FURT ---
Summary of Discharge Discharge Summary of Date Date of Exam: 06/30/19 Admission Date Date of Admission: 06/27/19 Admission Diagnosis Hospital Course: Pt is a 44 yo m pmhx MDD, Alcohol/Drug abuse(1/2 gallon whisky every 3 days or less, occasional use of cocaine) admitted for intentional overdose on Benadryl. His hospital course involved monitoring vitals and labs. He remained stable and his labs improved, including his liver enzymes that were mildly elevated on admission, trended down to normal limits. Due to intentional overdose, [facility] [place] [place] [facility] Vital Signs: Vital Signs (72 hours) 06/27/19 23:05 06/28/19 00:00 06/28/19 01:00 Temperature 96.9 F L Pulse Rate 102 H Pulse Rate [Right Brachial] 126 H 112 H Respiratory Rate 20 22 25 H Blood Pressure 178/114 Blood Pressure [Right Arm] 174/108 170/98 O2 Sat by Pulse Oximetry 99 99 95 06/28/19 03:50 06/28/19 04:00 06/28/19 04:06 Temperature Pulse Rate 101 H 101 H 103 H Pulse Rate [Right Brachial] Respiratory Rate 21 22 19 Blood Pressure 149/92 Blood Pressure [Right Arm] O2 Sat by Pulse Oximetry 95 94 L 94 L 06/28/19 05:00 06/28/19 06:00 06/28/19 07:00 Temperature Pulse Rate 105 H 95 H 97 H Pulse Rate [Right Brachial] Respiratory Rate 14 9 L 18 Blood Pressure 162/90 155/88 143/80 Blood Pressure [Right Arm] O2 Sat by Pulse Oximetry 95 94 L 92 L 06/28/19 08:00 06/28/19 09:00 06/28/19 10:00 Temperature 99.8 F H Pulse Rate 100 H 99 H 98 H Pulse Rate [Right Brachial] Respiratory Rate 12 19 19 Blood Pressure 149/88 148/86 142/81 Blood Pressure [Right Arm] O2 Sat by Pulse Oximetry 92 L 93 L 93 L 06/28/19 11:00 06/28/19 11:06 06/28/19 12:00 Temperature Pulse Rate 103 H 94 H 93 H Pulse Rate [Right Brachial] Respiratory Rate 17 16 16 Blood Pressure 141/84 136/78 Blood Pressure [Right Arm] O2 Sat by Pulse Oximetry 94 L 93 L 93 L 06/28/19 13:00 06/28/19 14:00 06/28/19 15:00 Temperature Pulse Rate 99 H 112 H 104 H Pulse Rate [Right Brachial] Respiratory Rate 16 15 19 Blood Pressure 141/87 145/90 143/87 Blood Pressure [Right Arm] O2 Sat by Pulse Oximetry 93 L 98 98 06/28/19 16:00 06/28/19 17:08 06/28/19 17:09 Temperature Pulse Rate 98 H 91 H 95 H Pulse Rate [Right Brachial] Respiratory Rate 19 9 L Blood Pressure 136/79 137/82 Blood Pressure [Right Arm] O2 Sat by Pulse Oximetry 99 95 06/28/19 18:00 06/28/19 19:00 06/28/19 20:00 Temperature 98.8 F Pulse Rate 97 H 93 H 100 H Pulse Rate [Right Brachial] Respiratory Rate 16 18 19 Blood Pressure 138/84 133/84 Blood Pressure [Right Arm] O2 Sat by Pulse Oximetry 93 L 97 100 06/28/19 20:02 06/28/19 21:00 06/28/19 22:00 Temperature Pulse Rate 93 H 95 H 94 H Pulse Rate [Right Brachial] Respiratory Rate 28 H 13 19 Blood Pressure 131/83 132/78 140/86 Blood Pressure [Right Arm] O2 Sat by Pulse Oximetry 99 96 98 06/28/19 23:00 06/29/19 00:00 06/29/19 01:00 Temperature Pulse Rate 93 H 89 90 Pulse Rate [Right Brachial] Respiratory Rate 22 19 28 H Blood Pressure 155/96 131/76 126/74 Blood Pressure [Right Arm] O2 Sat by Pulse Oximetry 95 96 06/29/19 02:00 06/29/19 03:00 06/29/19 04:00 Temperature 98.7 F Pulse Rate 84 88 81 Pulse Rate [Right Brachial] Respiratory Rate 22 20 15 Blood Pressure 124/67 135/85 131/86 Blood Pressure [Right Arm] O2 Sat by Pulse Oximetry 100 97 06/29/19 05:00 06/29/19 06:00 06/29/19 07:00 Temperature Pulse Rate 97 H 84 84 Pulse Rate [Right Brachial] Respiratory Rate 23 45 H 19 Blood Pressure Blood Pressure [Right Arm] O2 Sat by Pulse Oximetry 97 98 97 06/29/19 08:00 06/29/19 09:00 06/29/19 09:02 Temperature Pulse Rate 83 81 83 Pulse Rate [Right Brachial] Respiratory Rate 19 21 15 Blood Pressure 123/78 Blood Pressure [Right Arm] O2 Sat by Pulse Oximetry 95 96 98 06/29/19 10:00 06/29/19 11:00 06/29/19 12:00 Temperature 98.2 F Pulse Rate 78 86 77 Pulse Rate [Right Brachial] Respiratory Rate 13 16 10 L Blood Pressure 144/83 130/82 124/71 Blood Pressure [Right Arm] O2 Sat by Pulse Oximetry 94 L 97 95 06/29/19 13:00 06/29/19 14:00 06/29/19 15:00 Temperature Pulse Rate 99 H 90 81 Pulse Rate [Right Brachial] Respiratory Rate 18 16 20 Blood Pressure 124/76 147/87 127/71 Blood Pressure [Right Arm] O2 Sat by Pulse Oximetry 97 06/29/19 16:12 06/29/19 16:14 06/29/19 17:00 Temperature 99 F Pulse Rate 94 H 92 H 90 Pulse Rate [Right Brachial] Respiratory Rate 16 17 Blood Pressure 142/88 130/80 Blood Pressure [Right Arm] O2 Sat by Pulse Oximetry 96 95 06/29/19 18:00 06/29/19 19:00 06/29/19 19:48 Temperature Pulse Rate 94 H 108 H 109 H Pulse Rate [Right Brachial] Respiratory Rate 25 H 20 26 H Blood Pressure 137/81 151/86 Blood Pressure [Right Arm] O2 Sat by Pulse Oximetry 98 98 06/29/19 20:00 06/29/19 21:00 06/29/19 21:49 Temperature 98 F Pulse Rate 103 H 86 95 H Pulse Rate [Right Brachial] Respiratory Rate 18 28 H 18 Blood Pressure 147/84 Blood Pressure [Right Arm] O2 Sat by Pulse Oximetry 97 96 98 06/29/19 22:00 06/29/19 22:44 06/29/19 23:00 Temperature Pulse Rate 94 H 90 Pulse Rate [Right Brachial] Respiratory Rate 16 18 9 L Blood Pressure 147/82 154/91 Blood Pressure [Right Arm] O2 Sat by Pulse Oximetry 97 97 06/29/19 23:44 06/30/19 00:00 06/30/19 01:00 Temperature 98.6 F Pulse Rate 89 86 Pulse Rate [Right Brachial] Respiratory Rate 18 15 15 Blood Pressure 133/72 159/83 Blood Pressure [Right Arm] O2 Sat by Pulse Oximetry 96 93 L 06/30/19 02:00 06/30/19 03:00 06/30/19 04:00 Temperature 98 F Pulse Rate 83 83 76 Pulse Rate [Right Brachial] Respiratory Rate 24 20 20 Blood Pressure 151/79 128/75 137/83 Blood Pressure [Right Arm] O2 Sat by Pulse Oximetry 96 06/30/19 05:00 06/30/19 06:00 Temperature Pulse Rate 76 71 Pulse Rate [Right Brachial] Respiratory Rate 17 14 Blood Pressure 139/87 137/80 Blood Pressure [Right Arm] O2 Sat by Pulse Oximetry 95 97 Labs: Laboratory Last Values WBC 5.5 X10^3/uL (3.6-10.0) 06/29/19 06:45 RBC 3.88 X10^6/uL (4.7-6.0) L 06/29/19 06:45 Hgb 12.9 g/dL (13.5-18.0) L 06/29/19 06:45 Hct 37.6 % (42.0-54.0) L 06/29/19 06:45 MCV 97.0 fL (80.0-100.0) 06/29/19 06:45 MCH 33.3 pg (27.0-34.0) 06/29/19 06:45 MCHC 34.3 g/dL (33.0-35.0) 06/29/19 06:45 RDW 14.0 % (11.6-16.5) 06/29/19 06:45 Plt Count 212 X10^3/uL (150.0-450.0) 06/29/19 06:45 MPV 7.8 fL (7.4-11.0) 06/29/19 06:45 Neut % (Auto) 58.5 % (42.0-75.0) 06/29/19 06:45 Lymph % (Auto) 30.5 % (21.0-51.0) 06/29/19 06:45 [place] % (Auto) 9.2 % (0.0-13.0) 06/29/19 06:45 Eos % (Auto) 1.0 % (0.9-2.9) 06/29/19 06:45 Baso % (Auto) 0.8 % (0.2-1.0) 06/29/19 06:45 Neut # (Auto) 3.2 x10^3/uL (2.2-4.8) 06/29/19 06:45 Lymph # (Auto) 1.7 X10^3/uL (1.3-2.9) 06/29/19 06:45 [place] # (Auto) 0.5 x10^3/uL (0.3-0.8) 06/29/19 06:45 Eos # (Auto) 0.1 x10^3/uL (0.0-0.2) 06/29/19 06:45 Baso # (Auto) 0.0 X10^3/uL (0.0-0.1) 06/29/19 06:45 Absolute Nucleated RBC 0.0 /100WBC 06/29/19 06:45 PT 12.4 SECONDS (11.8-14.3) 06/28/19 04:18 INR Target Range - 06/28/19 04:18 INR 0.96 (0.8-1.3) 06/28/19 04:18 APTT 23.2 SECONDS (22.9-36.5) 06/28/19 04:18 PTT Comment - 06/28/19 04:18 Sodium 139 mmol/L (136-145) 06/29/19 06:45 Corrected Sodium TNP 06/29/19 06:45 Potassium 3.9 mmol/L (3.5-5.1) 06/29/19 06:45 Chloride 104 mmol/L (98-107) 06/29/19 06:45 Carbon Dioxide 26.9 mmol/L (21-32) 06/29/19 06:45 BUN 11 mg/dL (7-18) 06/29/19 06:45 Creatinine 1.01 mg/dL (0.70-1.30) 06/29/19 06:45 Est GFR (MDRD) Af Amer > 60 (>60) 06/29/19 06:45 Est GFR (MDRD) Non-Af > 60 (>60) 06/29/19 06:45 Glucose 108 mg/dL (65-99) H 06/29/19 06:45 POC Glucose (mg/dL) 114 mg/dL (65-99) H 06/29/19 06:24 Calcium 8.2 mg/dL (8.5-10.1) L 06/29/19 06:45 Corrected Calcium TNP 06/29/19 06:45 Magnesium 2.0 mg/dL (1.7-2.9) 06/29/19 06:45 Total Bilirubin 0.80 mg/dL (0.2-1.0) 06/29/19 06:45 AST 30 Units/L (15-37) 06/29/19 06:45 ALT 62 Units/L (12-78) 06/29/19 06:45 Alkaline Phosphatase 74 Units/L (46-116) 06/29/19 06:45 Creatine Kinase 343 Units/L (39-308) H 06/28/19 04:18 CK-MB (CK-2) 2.1 ng/mL (0-4.0) 06/28/19 04:18 CK/CKMB % Calc 0.6 % (<4) 06/28/19 04:18 Troponin I < 0.02 ng/mL (0-1.5) 06/28/19 04:18 Total Protein 6.8 g/dL (6.4-8.2) 06/29/19 06:45 Albumin 3.5 g/dL (3.4-5.0) 06/29/19 06:45 Globulin 3.3 g/dL (2.5-4.5) 06/29/19 06:45 Albumin/Globulin Ratio 1.1 Ratio (1.1-2.1) 06/29/19 06:45 Triglycerides 154 mg/dL (0-150) H 06/28/19 04:18 Cholesterol 227 mg/dL (0-200) H 06/28/19 04:18 LDL Cholesterol, Calc 117 mg/dL (0-100) H 06/28/19 04:18 HDL Cholesterol 79 mg/dL (40-60) H 06/28/19 04:18 Cholesterol/HDL Ratio 2.9 (0.0-5.0) 06/28/19 04:18 Specimen Type Catherized urine 06/27/19 23:50 Urine Color Yellow (YELLOW) 06/27/19 23:50 Urine Appearance Clear (CLEAR) 06/27/19 23:50 Urine pH 5.0 (5.0 - 8.0) 06/27/19 23:50 Ur Specific [place] 1.020 (1.000-1.030) 06/27/19 23:50 Urine Protein 2+ (NEGATIVE) 06/27/19 23:50 Urine Glucose (UA) Negative (NEGATIVE) 06/27/19 23:50 Urine Ketones 2+ (NEGATIVE) 06/27/19 23:50 Urine Occult Blood Negative (NEGATIVE) 06/27/19 23:50 Urine Nitrite Negative (NEGATIVE) 06/27/19 23:50 Urine Bilirubin Negative (NEGATIVE) 06/27/19 23:50 Urine Urobilinogen Normal (NORMAL) 06/27/19 23:50 Ur Leukocyte Esterase Negative (NEGATIVE) 06/27/19 23:50 Urine RBC 3-5 /HPF (0-3) A 06/27/19 23:50 Urine WBC None seen /HPF (0-5) 06/27/19 23:50 Ur Squamous Epith Cells Rare /HPF (NEGATIVE) 06/27/19 23:50 Urine Bacteria Negative /HPF (NEGATIVE) 06/27/19 23:50 Ur Culture Indicated? No/not indicated 06/27/19 23:50 Salicylates < 2.8 mg/dL (2.8-20) L 06/27/19 23:33 Urine Opiates Screen Negative (NEG=<300) 06/27/19 23:50 Urine Methadone Screen Negative (NEG=<300) 06/27/19 23:50 Acetaminophen 0.0 ug/mL (10-30) L 06/27/19 23:33 Ur Barbiturates Screen Negative (NEG=<200) 06/27/19 23:50 Ur Phencyclidine Scrn Negative (NEG=<25) 06/27/19 23:50 Ur Amphetamines Screen Negative (NEG=<1000) 06/27/19 23:50 U Benzodiazepines Scrn Negative (NEG=<200) 06/27/19 23:50 Urine Cocaine Screen Negative (NEG=<300) 06/27/19 23:50 U Marijuana (THC) Screen Negative (NEG=<50) 06/27/19 23:50 Ethyl Alcohol mg/dL 156 mg/dL (0-19.9) H 06/27/19 23:33 Reason For Visit: DRUG INGESTION-BENADRYL; DEPRESSIVE NEUROSIS Discharge Date Discharge Date: 06/30/19 Discharge Diagnosis All Active Problems (Updated 06/28/19 @ 01:14 by WENDY CARMICHAEL) Drug ingestion (Acute) Depression with suicidal ideation (Acute) Acute hypokalemia (Acute) Alcohol intoxication (Acute) Hyperglycemia (Acute) Plan of Treatment: Continue with present treatment and follow up plan. Pt is to keep follow up appointment as instructed and take medications as ordered. Discharge Medications Discharge Medications: shellfish derived Allergy (Verified 06/27/19 23:54) CONTINUE taking the following medications carvedilol 6.25 mg PO BID 06/27/19 [History] escitalopram oxalate 20 mg PO DAILY 06/27/19 [History] lisinopril 2.5 mg PO DAILY 06/27/19 [History] quetiapine 100 mg PO HS 06/27/19 [History] tamsulosin [Flomax] 0.4 mg PO QHS 06/27/19 [History] Discharge Disposition Discharge Disposition: Transfer to [facility] in [place], [place].
[2019-06-30 10:21] VITALS: BP 124/73
== END 2019-06-30 09:00 | DRG 918 ==
LOC: ER 23:00 → ICU 06-28 01:14
PROVIDERS: ADMIT Family Medicine; ATTEND Family Medicine
DX: I10 Essential (primary) hypertension; T45.0X2A Poisoning by antiallergic and antiemetic drugs, intentional self-harm, initial encounter; F10.929 Alcohol use, unspecified with intoxication, unspecified; R45.851 Suicidal ideations; E87.6 Hypokalemia; R74.8 Abnormal levels of other serum enzymes; R94.31 Abnormal electrocardiogram [ECG] [EKG]; Z23 Encounter for immunization; R07.89 Other chest pain
CPT/HCPCS: 36415; 51702; 71010; 71045; 80053; 80061; 80307; 80320; 81001; 82550; 82553; 83735; 84132; 84484; 85025; 85610; 85730; 86701; 86703; 87389; 90674; 90686; 93005; 93041; 96365; 99285; A4222; J3475; J3480; J3490; J8499

== ENCOUNTER 2023-06-04 14:13 | Inpatient (IN) ==
--- NOTE | 2023-06-04 15:42 | DR.CP ---
HPI Time Seen Time Seen by Provider: 06/04/23 15:40 PCP Primary Care Physician: Dr. Potter Complaint Chief Complaint:: Patient reports the past 5-7 days he's been unsteady, having nausea and vomiting, dizzy, weak, and not eating. Patient states his chest feels intermittingly tight. Patient also states both sides of his face feels droopy and finds it difficult to speak. Also notes some SOB on exertion. COVID-19 Coronavirus risk:travel/contact w/high risk person: No Has patient experienced Coronavirus symptoms: No Source History Provided: Patient Mode of Arrival Mode of Arrival: Wheelchair Timing Onset of Chief Complaint: 05/28/23 PMH PMH Past Medical History: Yes Past Medical History: CHF, Depression and Hypertension Past Medical History Comment: BPH, Cerivcal radiculopathy Past Surgical History: Yes Surgical History: Ortho Surgery Past Surgical History Comment: Cervical surgery Family History History of Family Medical Conditions: Yes Family Medical History: Diabetes Mellitus, Cancer, [place] and Sudden Cardiac Social History Alcohol Use: Occasionally Do you use any recreational Drugs:: Yes (COCAINE) Lives With: Alone Lives Where: Home Travel Risk Coronavirus risk:travel/contact w/high risk person: No Has patient experienced Coronavirus symptoms: No Infectious screening Have you traveled outside the country in the last 6 months?: No Isolation: Standard PE Vitals Vitals: Vital Signs Pulse Rate 94 Pulse Rate 95 Pulse Rate 103 Pulse Rate 97 Pulse Rate 97 Pulse Rate 94 Pulse Rate 95 Pulse Rate 93 Pulse Rate 94 Pulse Rate 92 Pulse Rate 90 Pulse Rate 80 Pulse Rate 92 Pulse Rate 92 Pulse Rate 97 Pulse Rate 91 Pulse Rate 91 Pulse Rate 87 Pulse Rate 88 Pulse Rate 87 Pulse Rate 94 Respiratory Rate 18 Respiratory Rate 18 Respiratory Rate 21 Respiratory Rate 18 Respiratory Rate 14 Respiratory Rate 23 Respiratory Rate 18 Respiratory Rate 20 Respiratory Rate 20 Respiratory Rate 19 Respiratory Rate 19 Respiratory Rate 22 Respiratory Rate 23 Respiratory Rate 14 Respiratory Rate 25 Blood Pressure 130/63 Blood Pressure 139/70 Blood Pressure 149/73 Blood Pressure 148/77 Blood Pressure 130/73 Blood Pressure 123/78 Blood Pressure 133/67 Blood Pressure 139/62 Blood Pressure 139/62 O2 Sat by Pulse Oximetry 96 O2 Sat by Pulse Oximetry 97 O2 Sat by Pulse Oximetry 99 O2 Sat by Pulse Oximetry 95 O2 Sat by Pulse Oximetry 97 O2 Sat by Pulse Oximetry 97 O2 Sat by Pulse Oximetry 92 O2 Sat by Pulse Oximetry 94 O2 Sat by Pulse Oximetry 94 O2 Sat by Pulse Oximetry 96 O2 Sat by Pulse Oximetry 95 ROR Labs Reviewed 06/14/23 05:00 06/14/23 05:00 Laboratory: WBC 7.8 X10^3/uL (3.6-10.0) 06/04/23 16:20 RBC 1.89 X10^6/uL (4.7-6.0) L 06/04/23 16:20 Hgb 6.9 g/dL (13.5-18.0) L* 06/04/23 16:20 Hct 20.4 % (42.0-54.0) L 06/04/23 16:20 MCV 107.9 fL (80.0-100.0) H 06/04/23 16:20 MCH 36.8 pg (27.0-34.0) H 06/04/23 16:20 MCHC 34.1 g/dL (33.0-35.0) 06/04/23 16:20 RDW 17.2 % (11.6-16.5) H 06/04/23 16:20 Plt Count 115 X10^3/uL (150.0-450.0) L 06/04/23 16:20 Plt Count Comment Decreased (ADEQUATE) 06/04/23 16:20 MPV 7.2 fL (7.4-11.0) L 06/04/23 16:20 Neut % (Auto) 76.0 % (42.0-75.0) H 06/04/23 16:20 Lymph % (Auto) 18.2 % (21.0-51.0) L 06/04/23 16:20 [place] % (Auto) 5.2 % (0.0-13.0) 06/04/23 16:20 Eos % (Auto) 0.1 % (0.9-2.9) L 06/04/23 16:20 Baso % (Auto) 0.5 % (0.2-1.0) 06/04/23 16:20 Neut # (Auto) 5.9 x10^3/uL (2.2-4.8) H 06/04/23 16:20 Lymph # (Auto) 1.4 X10^3/uL (1.3-2.9) 06/04/23 16:20 [place] # (Auto) 0.4 x10^3/uL (0.3-0.8) 06/04/23 16:20 Eos # (Auto) 0.0 x10^3/uL (0.0-0.2) 06/04/23 16:20 Baso # (Auto) 0.0 X10^3/uL (0.0-0.1) 06/04/23 16:20 Absolute Nucleated RBC 0.1 /100WBC 06/04/23 16:20 Plt Morphology Comment Normal (NORMAL) 06/04/23 16:20 RBC Morphology Abnormal (NORMAL) 06/04/23 16:20 Anisocytosis Slight A 06/04/23 16:20 Macrocytosis 1+ A 06/04/23 16:20 Ovalocytes Present 06/04/23 16:20 Stomatocytes Present 06/04/23 16:20 Sodium 134 mmol/L (136-145) L 06/04/23 16:20 Corrected Sodium 135 mmol/L (136-145) L 06/04/23 16:20 Potassium 2.5 mmol/L (3.5-5.1) L* 06/04/23 16:20 Chloride 92 mmol/L (98-107) L 06/04/23 16:20 Carbon Dioxide 32.9 mmol/L (21-32) H 06/04/23 16:20 BUN 13 mg/dL (7-18) 06/04/23 16:20 Creatinine 1.03 mg/dL (0.70-1.30) 06/04/23 16:20 Est GFR (MDRD) Af Amer > 60 (>60) 06/04/23 16:20 Est GFR (MDRD) Non-Af > 60 (>60) 06/04/23 16:20 Glucose 122 mg/dL (65-99) H 06/04/23 16:20 Calcium 8.3 mg/dL (8.5-10.1) L 06/04/23 16:20 Corrected Calcium TNP 06/04/23 16:20 Iron 278 ug/dL (50-175) H 06/04/23 16:20 Iron 279 ug/dL (50-175) H 06/04/23 16:20 TIBC 323 ug/dL (250-450) 06/04/23 16:20 % Saturation 86.4 % (11.0-46.0) H 06/04/23 16:20 Transferrin 208 mg/dL (202-364) 06/04/23 16:20 Ferritin 1503 ng/mL (26-388) H 06/04/23 16:20 Total Bilirubin 2.10 mg/dL (0.2-1.0) H 06/04/23 16:20 AST 42 Units/L (15-37) H 06/04/23 16:20 ALT 15 Units/L (12-78) 06/04/23 16:20 Alkaline Phosphatase 177 Units/L (46-116) H 06/04/23 16:20 Creatine Kinase 46 Units/L (39-308) 06/04/23 16:20 Troponin I High Sens 4.5 ng/L (4.0-60.0) 06/04/23 16:20 Total Protein 8.0 g/dL (6.4-8.2) 06/04/23 16:20 Albumin 3.4 g/dL (3.4-5.0) 06/04/23 16:20 Globulin 4.6 g/dL (2.5-4.5) H 06/04/23 16:20 Albumin/Globulin Ratio 0.7 Ratio (1.1-2.1) L 06/04/23 16:20 Amylase 36 Units/L (25-115) 06/04/23 16:20 Lipase 66 Units/L (16-77) 06/04/23 16:20 Vitamin B12 480 pg/mL (193-986) 06/04/23 16:20 Blood Type A NEGATIVE 06/04/23 17:48 Blood Type A NEGATIVE 06/04/23 17:48 Antibody Screen Negative 06/04/23 17:48 Crossmatch See Detail 06/04/23 17:48 Opioid Opioid Risk Tool Age (Ashkan box if 16-45): No History of Preadolescent Sexual Abuse: No Total: 0 Total Score Risk Category: Low Risk Copyright: Jhon PARKER predicting aberrant behaviors Discharge Plan Discharge Plan Patient Disposition: 09 ADMITTED INPATIENT Condition: Stable
--- NOTE | 2023-06-04 15:47 | EKG ---
Test Reason : chest pain Blood Pressure : */* mmHG Vent. Rate : 95 BPM Atrial Rate : 95 BPM P-R Int : 140 ms QRS Dur : 92 ms QT Int : 414 ms P-R-T Axes : 26 10 18 degrees QTc Int : 520 ms Normal sinus rhythm Nonspecific ST and T wave abnormality Prolonged QT Abnormal ECG No previous ECGs available Confirmed by Dewayne Hanna ([id number]) on 06/05/2023 3:34:37 PM Referred By: Confirmed By: Dewayne Hanna
[2023-06-04 16:31] LABS: LYMPHOCYTES # (AUTO) 1.4 X10^3/uL (1.3-2.9); MONOCYTES # (AUTO) 0.4 x10^3/uL (0.3-0.8); NEUTROPHILS # (AUTO) 5.9 x10^3/uL (2.2-4.8); RED CELL DISTRIBUTION WIDTH 17.2 % (11.6-16.5); WHITE BLOOD COUNT 7.8 X10^3/uL (3.6-10.0)
[2023-06-04 16:35] LABS: BASOPHILS % (AUTO) 0.5 % (0.2-1.0); EOSINOPHILS % (AUTO) 0.1 % (0.9-2.9); HEMATOCRIT 20.4 % (42.0-54.0); LYMPHOCYTES % (AUTO) 18.2 % (21.0-51.0); MEAN CORPUSCULAR HEMOGLOBIN 36.8 pg (27.0-34.0); MEAN CORPUSCULAR HGB CONC 34.1 g/dL (33.0-35.0); MEAN CORPUSCULAR VOLUME 107.9 fL (80.0-100.0); MEAN PLATELET VOLUME 7.2 fL (7.4-11.0); MONOCYTES % (AUTO) 5.2 % (0.0-13.0); PLATELET COUNT 115 X10^3/uL (150.0-450.0); RED BLOOD COUNT 1.89 X10^6/uL (4.7-6.0)
[2023-06-04 16:40] LABS: HEMOGLOBIN 6.9 g/dL (13.5-18.0)
[2023-06-04 16:44] LABS: ALANINE AMINOTRANSFERASE 15 Units/L (12-78); ALBUMIN 3.4 g/dL (3.4-5.0); ALKALINE PHOSPHATASE 177 Units/L (46-116); AMYLASE 36 Units/L (25-115); ASPARTATE AMINO TRANSFERASE 42 Units/L (15-37); BLOOD UREA NITROGEN 13 mg/dL (7-18); CALCIUM 8.3 mg/dL (8.5-10.1); CARBON DIOXIDE 32.9 mmol/L (21-32); CHLORIDE 92 mmol/L (98-107); COR NA(FOR HYPERGLY) 135 mmol/L (136-145); CREATINE KINASE 46 Units/L (39-308); CREATININE 1.03 mg/dL (0.70-1.30); GLUCOSE 122 mg/dL (65-99); LIPASE 66 Units/L (16-77); SODIUM 134 mmol/L (136-145); eGFR NON BLACK RACES > 60 (>60)
[2023-06-04 16:46] LABS: POTASSIUM 2.5 mmol/L (3.5-5.1)
[2023-06-04 16:57] LABS: ANISOCYTOSIS SLIGHT; PLATELET MORPHOLOGY COMMENT NORMAL (NORMAL); STOMATOCYTES PRESENT
[2023-06-04 16:58] LABS: OVALOCYTES PRESENT
--- NOTE | 2023-06-04 17:34 | RAD ---
EXAM:CHEST, 1 VIEWHISTORY:Patient states his chest feels intermittingly tight.; SOB UnavailableCOMPARISON:None.FINDINGS:The trachea is midline. The cardiac silhouette is unremarkable. The lungs are clear without focal infiltrate or effusion. The bony thorax is unremarkable.IMPRESSION:No acute cardiopulmonary disease.THIS IS AN ELECTRONICALLY VERIFIED FINAL REPORT06/04/2023 5:31 PM - Electronically signed by Melo Calle MD
--- NOTE | 2023-06-04 17:34 | CT ---
EXAM:BRAIN W/O CONHISTORY:dizziness x 1 week; Patient also states both sides of his face feels droopy and finds it difficult to speak.COMPARISON:None available.TECHNIQUE:Multiple axial images of the brain were obtained from the skull base to the vertex without administration of IV contrast. Dose reduction techniques including Automated Exposure Control (AEC) and adjustment of mA and kV were utilized.FINDINGS:No acute intraparenchymal hemorrhage or mass can be identified. No extra-axial fluid collections are seen. No alteration in the attenuation of the brain parenchyma can be identified to suggest acute or subacute ischemic change. The ventricular system is symmetric and nondilated. The extracranial structures appear unremarkable.IMPRESSION:1. No acute intracranial process can be identified.THIS IS AN ELECTRONICALLY VERIFIED FINAL REPORT06/04/2023 5:20 PM - Electronically signed by Melo Calle MD
--- NOTE | 2023-06-04 17:45 | CT ---
EXAM:ABDOMEN W/O CONHISTORY:nausea,vomiting;COMPARISON:No ne available.TECHNIQUE:Multiple axial images of the abdomen were obtained from the lung bases to the pelvic inlet prior to and following the administration of IV contrast . Dose reduction techniques including Automated Exposure Control (AEC) and adjustment of mA and kV were utlized.FINDINGS:The heart is normal in size. There is no pericardial effusion. Lung bases are clear without focal consolidation, pleural effusion or pneumothorax.Liver measures 20 cm craniocaudal dimension. Spleen measures 14 cm craniocaudal dimension. Hepatic steatosis present. No focal lesions.The portal vein is patent. No ductal dilitation. Gallbladder is present. No calcified gallstones or gallbladder wall thickening. Pancreas atrophic. Adrenal glands are normal. Kidneys enhance symmetrically without hydronephrosis or nephrolithiasis.No bowel obstruction or inflammation. Inflammatory change can be seen along the pericolic gutter bilaterally however the associated bowel including the appendix appear to be grossly.. No abnormal appearing mesenteric or retroperitoneal lymph nodes. . No free fluid or fluid collections.No aggressive osseous lesions. Old L1 compression fracture.IMPRESSION:1. Inflammatory change along the pericolic gutters bilaterally which is a nonspecific finding. The associated bowel is within normal limits. No definite source of acute abdominal pain identified.2. Hepatosplenomegaly, hepatic steatosis and pancreatic atrophy.THIS IS AN ELECTRONICALLY VERIFIED FINAL REPORT06/04/2023 5:41 PM - Electronically signed by Hernando Rodriguez MD
[2023-06-04 18:20] LABS: IRON 278 ug/dL (50-175)
[2023-06-04] MEDS ORDERED: LASIX IVP ONE ×2 (23:28→23:31)
[2023-06-04] MEDS ORDERED: K-DUR TAB 20 MEQ PO ONE ×2 (23:30→23:32)
[2023-06-04] MEDS ORDERED: NS 1,000 ML IV 1,000 ML IV SCH (23:57)
[2023-06-04] MEDS ORDERED: ZOFRAN INJ 4 MG VIAL IVP PRN (23:57)
[2023-06-04] MEDS ORDERED: MORPHINE SULFATE INJ 2 MG INJ IVP PRN (23:57)
[2023-06-05 00:48] VITALS: BMI 4528.9
[2023-06-05 05:23] LABS: BASOPHILS % (AUTO) 0.3 % (0.2-1.0); EOSINOPHILS % (AUTO) 0.1 % (0.9-2.9); MONOCYTES # (AUTO) 0.3 x10^3/uL (0.3-0.8); NEUTROPHILS # (AUTO) 7.5 x10^3/uL (2.2-4.8)
[2023-06-05 05:30] LABS: ALANINE AMINOTRANSFERASE 20 Units/L (12-78); ALBUMIN 3.4 g/dL (3.4-5.0); ALKALINE PHOSPHATASE 171 Units/L (46-116); ASPARTATE AMINO TRANSFERASE 55 Units/L (15-37); BLOOD UREA NITROGEN 13 mg/dL (7-18); CALCIUM 8.3 mg/dL (8.5-10.1); CARBON DIOXIDE 33.7 mmol/L (21-32); CHLORIDE 91 mmol/L (98-107); COR NA(FOR HYPERGLY) 134 mmol/L (136-145); CREATININE 0.94 mg/dL (0.70-1.30); GLUCOSE 115 mg/dL (65-99); SODIUM 134 mmol/L (136-145); TOTAL PROTEIN 7.9 g/dL (6.4-8.2); eGFR NON BLACK RACES > 60 (>60)
[2023-06-05 05:33] LABS: HEMATOCRIT 20.7 % (42.0-54.0); LYMPHOCYTES # (AUTO) 1.1 X10^3/uL (1.3-2.9); LYMPHOCYTES % (AUTO) 12.5 % (21.0-51.0); MEAN CORPUSCULAR HEMOGLOBIN 36.3 pg (27.0-34.0); MEAN CORPUSCULAR HGB CONC 33.5 g/dL (33.0-35.0); MEAN CORPUSCULAR VOLUME 108.4 fL (80.0-100.0); MEAN PLATELET VOLUME 7.8 fL (7.4-11.0); MONOCYTES % (AUTO) 3.8 % (0.0-13.0); NEUTROPHILS % (AUTO) 83.3 % (42.0-75.0); PLATELET COUNT 124 X10^3/uL (150.0-450.0); RED BLOOD COUNT 1.91 X10^6/uL (4.7-6.0); RED CELL DISTRIBUTION WIDTH 17.4 % (11.6-16.5)
[2023-06-05 06:11] LABS: POTASSIUM 2.6 mmol/L (3.5-5.1)
[2023-06-05 06:14] LABS: HEMOGLOBIN 6.9 g/dL (13.5-18.0)
[2023-06-05 06:18] LABS: PLATELET MORPHOLOGY COMMENT NORMAL (NORMAL)
[2023-06-05 06:19] LABS: OVALOCYTES PRESENT; STOMATOCYTES PRESENT
[2023-06-05] MEDS ORDERED: CONSULT PHARMACY - POTASSIUM & MAGNESIUM XX SCH (07:00)
[2023-06-05] MEDS ORDERED: KAOPECTATE (NEW FORMULA) PO PRN (08:57)
[2023-06-05] MEDS ORDERED: MAALOX or MYLANTA PO PRN (08:57)
[2023-06-05] MEDS ORDERED: MILK OF MAGNESIA PO PRN (08:57)
[2023-06-05] MEDS ORDERED: NS + KCL 40 MEQ/L 1,000 ML IV SCH (09:00)
[2023-06-05] MEDS ORDERED: K-DUR TAB 20 MEQ PO ONE ×2 (09:00→11:00)
[2023-06-05 09:20] LABS: RETICULOCYTE % 1.88 % (0.8-2.2)
[2023-06-05] MEDS: PHENOBARBITAL TAB 30 MG (32.4MG) PO SCH ×4 (09:28→20:31)
[2023-06-05] MEDS: MAGNESIUM SULFATE 1 GRAM/100 mL PREMIX 1 G/100 ML BAG IV SCH ×3 (09:29→22:25)
[2023-06-05] MEDS: THIAMINE HCL INJ IM SCH (09:29)
[2023-06-05] MEDS ORDERED: POTASSIUM CHL 60 MEQ/NS 0.45% 500 ML 60 MEQ/500 ML BAG IV NR (10:00)
[2023-06-05] MEDS: NS 1,000 ML IV 1,000 ML with MAGNESIUM SULFATE 50% INJ VIAL 1 G, MVI INJ (ADULT) 10 ML IV SCH ×3 (10:38)
[2023-06-05] MEDS: MORPHINE SULFATE INJ 4 MG IVP PRN ×2 (15:36→23:40)
[2023-06-05] MEDS: AMBIEN PO SCH ×2 (20:31→20:34)
--- NOTE | 2023-06-05 20:46 | DR.H&P ---
H&P History & Physical for Day of: H&P Date: 06/05/23 Chief Complaint Chief Complaint: Weakness with nausea vomiting Allergies Allergies Allergy/AdvReac Type Severity Reaction Status Date / Time shellfish derived Allergy Verified 06/27/19 23:54 History of Present Illness History of Present Illness: This is a pleasant 48-year-old white male who is a patient of Dr. Potter from [place], [place]. He reports for the last 5 to 7 days he has been having increasing weakness associated with nausea and vomiting. He is having a lot of epigastric discomfort as well. He reports some dizziness as well. A CT of his brain was ordered in the emergency department that showed no acute intracranial process. Labs revealed he had hyperbilirubinemia and elevated AST. He was anemic with a hemoglobin of 6.9 and he has elevated iron levels as well as ferritin. His folate is very low at 2.4 but has a normal vitamin B12 level. The patient reports that he is a heavy drinker and drinks whiskey every day and he states he knows he needs to cut back and quit. His labs are consistent with chronic alcoholism and he had a CT of his abdomen and pelvis that showed he had hepatosplenomegaly. He also has pancreatic atrophy and nonspecific inflammatory changes in the paracolic gutters. I spoke with the ER physician about him, and we elected to go ahead and admit. This morning after speaking with him I talked to him about go ahead and detoxing him with the alcohol detox protocol and he is agreeable to that. I will go ahead and consult gastroenterology to see what he thinks about his pancreatic atrophy and hepatic steatosis. The patient was also found to be profoundly hypokalemic so we will also start him on the potassium replacement protocol. His magnesium level was drawn and was normal. Past Medical History Past Medical History: CHF, Depression and Hypertension Past Surgical History Surgical History: Ortho Surgery Family History Family Medical History: Diabetes Mellitus, Cancer, [place] and Sudden Cardiac Social History Alcohol Use: Occasionally Medications Home Medications: Home Medications Medication Instructions Recorded Confirmed Type tamsulosin 0.4 mg capsule (Flomax) 0.4 mg PO QHS 06/27/19 06/04/23 History ferrous sulfate 325 mg (65 mg 325 mg PO DAILY 06/04/23 06/04/23 History iron) tablet (FeroSul) fluoxetine 40 mg capsule 40 mg PO DAILY 06/04/23 06/04/23 History ibuprofen 800 mg tablet 800 mg PO TID PRN 06/04/23 06/04/23 History pregabalin 150 mg capsule 150 mg PO TID 06/04/23 06/04/23 History quetiapine 200 mg tablet 200 mg PO DAILY 06/04/23 06/04/23 History Labs 06/05/23 04:56 06/05/23 04:56 Labs: Laboratory WBC 9.0 X10^3/uL (3.6-10.0) 06/05/23 04:56 RBC 1.91 X10^6/uL (4.7-6.0) L 06/05/23 04:56 Hgb 6.9 g/dL (13.5-18.0) L* 06/05/23 04:56 Hct 20.7 % (42.0-54.0) L 06/05/23 04:56 MCV 108.4 fL (80.0-100.0) H 06/05/23 04:56 MCH 36.3 pg (27.0-34.0) H 06/05/23 04:56 MCHC 33.5 g/dL (33.0-35.0) 06/05/23 04:56 RDW 17.4 % (11.6-16.5) H 06/05/23 04:56 Plt Count 124 X10^3/uL (150.0-450.0) L 06/05/23 04:56 Plt Count Comment Decreased (ADEQUATE) 06/05/23 04:56 MPV 7.8 fL (7.4-11.0) 06/05/23 04:56 Neut % (Auto) 83.3 % (42.0-75.0) H 06/05/23 04:56 Lymph % (Auto) 12.5 % (21.0-51.0) L 06/05/23 04:56 [place] % (Auto) 3.8 % (0.0-13.0) 06/05/23 04:56 Eos % (Auto) 0.1 % (0.9-2.9) L 06/05/23 04:56 Baso % (Auto) 0.3 % (0.2-1.0) 06/05/23 04:56 Neut # (Auto) 7.5 x10^3/uL (2.2-4.8) H 06/05/23 04:56 Lymph # (Auto) 1.1 X10^3/uL (1.3-2.9) L 06/05/23 04:56 [place] # (Auto) 0.3 x10^3/uL (0.3-0.8) 06/05/23 04:56 Eos # (Auto) 0.0 x10^3/uL (0.0-0.2) 06/05/23 04:56 Baso # (Auto) 0.0 X10^3/uL (0.0-0.1) 06/05/23 04:56 Absolute Nucleated RBC 0.1 /100WBC 06/05/23 04:56 Plt Morphology Comment Normal (NORMAL) 06/05/23 04:56 RBC Morphology Abnormal (NORMAL) 06/05/23 04:56 Anisocytosis Slight A 06/04/23 16:20 Macrocytosis 1+ A 06/05/23 04:56 Ovalocytes Present 06/05/23 04:56 Stomatocytes Present 06/05/23 04:56 Absolute Retic 0.0355 10^6/uL 06/05/23 04:56 Percent Retic 1.88 % (0.8-2.2) 06/05/23 04:56 PT 17.8 SECONDS (11.8-14.3) 06/05/23 04:56 INR Target Range - 06/05/23 04:56 INR 1.50 (0.8-1.3) H 06/05/23 04:56 APTT 41.0 SECONDS (22.9-36.5) H 06/05/23 04:56 PTT Comment - 06/05/23 04:56 Sodium 134 mmol/L (136-145) L 06/05/23 04:56 Corrected Sodium 134 mmol/L (136-145) L 06/05/23 04:56 Potassium 2.6 mmol/L (3.5-5.1) L* 06/05/23 04:56 Chloride 91 mmol/L (98-107) L 06/05/23 04:56 Carbon Dioxide 33.7 mmol/L (21-32) H 06/05/23 04:56 BUN 13 mg/dL (7-18) 06/05/23 04:56 Creatinine 0.94 mg/dL (0.70-1.30) 06/05/23 04:56 Est GFR (MDRD) Af Amer > 60 (>60) 06/05/23 04:56 Est GFR (MDRD) Non-Af > 60 (>60) 06/05/23 04:56 Glucose 115 mg/dL (65-99) H 06/05/23 04:56 Calcium 8.3 mg/dL (8.5-10.1) L 06/05/23 04:56 Corrected Calcium TNP 06/05/23 04:56 Magnesium 2.1 mg/dL (2.0-2.9) 06/05/23 04:53 Iron 278 ug/dL (50-175) H 06/04/23 16:20 Iron 279 ug/dL (50-175) H 06/04/23 16:20 TIBC 323 ug/dL (250-450) 06/04/23 16:20 % Saturation 86.4 % (11.0-46.0) H 06/04/23 16:20 Transferrin 208 mg/dL (202-364) 06/04/23 16:20 Ferritin 1503 ng/mL (26-388) H 06/04/23 16:20 Total Bilirubin 2.00 mg/dL (0.2-1.0) H 06/05/23 04:56 AST 55 Units/L (15-37) H 06/05/23 04:56 ALT 20 Units/L (12-78) 06/05/23 04:56 Alkaline Phosphatase 171 Units/L (46-116) H 06/05/23 04:56 Creatine Kinase 46 Units/L (39-308) 06/04/23 16:20 Troponin I High Sens 4.5 ng/L (4.0-60.0) 06/04/23 16:20 Total Protein 7.9 g/dL (6.4-8.2) 06/05/23 04:56 Albumin 3.4 g/dL (3.4-5.0) 06/05/23 04:56 Globulin 4.5 g/dL (2.5-4.5) 06/05/23 04:56 Albumin/Globulin Ratio 0.8 Ratio (1.1-2.1) L 06/05/23 04:56 Amylase 36 Units/L (25-115) 06/04/23 16:20 Lipase 66 Units/L (16-77) 06/04/23 16:20 Vitamin B12 475 pg/mL (193-986) 06/05/23 04:56 Folate 2.4 ng/mL (>8.6) L 06/05/23 04:56 Ethyl Alcohol mg/dL < 3 mg/dL (0-19.9) 06/05/23 04:56 Blood Type A NEGATIVE 06/04/23 17:48 Blood Type A NEGATIVE 06/04/23 17:48 Antibody Screen Negative 06/04/23 17:48 Review of Systems Constitutional: No Symptoms Reported Eyes: No Symptoms Reported ENT: No Symptoms Reported Respiratory: No Symptoms Reported Cardiovascular: No Symptoms Reported Gastrointestinal: Nausea, Vomiting, Abdominal Pain and Diarrhea; denies Constipation, Melena or Hematochezia Genitourinary: No Symptoms Reported Musculoskeletal: No Symptoms Reported Skin: No Symptoms Reported Neurological: No Symptoms Reported Physical Exam Vital Signs: Vital Signs Temperature 97.8 F Temperature 97.9 F Temperature 98.7 F Pulse Rate 102 Pulse Rate 101 Pulse Rate 101 Pulse Rate 101 Pulse Rate 102 Pulse Rate 107 Pulse Rate 105 Pulse Rate 101 Pulse Rate 100 Pulse Rate 99 Pulse Rate 100 Pulse Rate 97 Pulse Rate 99 Respiratory Rate 26 Respiratory Rate 27 Respiratory Rate 24 Respiratory Rate 21 Respiratory Rate 14 Respiratory Rate 17 Respiratory Rate 15 Respiratory Rate 27 Respiratory Rate 27 Respiratory Rate 27 Respiratory Rate 25 Respiratory Rate 22 Respiratory Rate 23 Respiratory Rate 28 Respiratory Rate 25 Blood Pressure 122/82 Blood Pressure 151/84 Blood Pressure 134/81 Blood Pressure 151/81 Blood Pressure 150/91 Blood Pressure 135/77 Blood Pressure 135/77 Blood Pressure 142/70 O2 Sat by Pulse Oximetry 94 O2 Sat by Pulse Oximetry 86 O2 Sat by Pulse Oximetry 92 O2 Sat by Pulse Oximetry 96 O2 Sat by Pulse Oximetry 93 O2 Sat by Pulse Oximetry 93 O2 Sat by Pulse Oximetry 97 O2 Sat by Pulse Oximetry 99 O2 Sat by Pulse Oximetry 93 O2 Sat by Pulse Oximetry 96 O2 Sat by Pulse Oximetry 96 O2 Sat by Pulse Oximetry 95 O2 Sat by Pulse Oximetry 94 Oriented: Normal, Time, Person and Place Eyes: Normal Ear: Normal Nose: Normal Throat: Normal Respiratory: Clear Throughout Cardiovascular: Normal : Normal Auscultation: Bowel Sounds: Normal Palpation: Spleen Enlarged and Liver Enlarged Tenderness: Diffuse and Epigastric Skin: Normal Musculoskeletal: Normal Psychiatric: Anxiety and Depression Mood Description: Calm, Sad and Anxious Affect: Anxious, Depressed and Quiet Speech Pattern: Clear and Appropriate Assessment/Plan (1) Acute hypokalemia: Status: Acute Plan: Potassium replacement protocol. (2) Hepatosplenomegaly: Status: Acute Plan: Consult gastroenterology (3) Hepatic steatosis: Status: Acute Plan: Consult gastroenterology (4) Pancreatic atrophy: Status: Acute Plan: Gastroenterology consultation. (5) Diffuse abdominal pain: Status: Acute Plan: Monitor for improvement and pain control as needed. (6) Alcohol use disorder: Status: Acute Plan: Alcohol detox protocol. (7) Folate deficiency: Status: Acute Plan: Start folate 1 mg p.o. daily. (8) Elevated ferritin level: Status: Acute Plan: Discussed with gastroenterology to see if patient needs a workup for hemochromatosis or if they think that the high ferritin and iron levels are secondary to chronic alcohol ingestion. Review H&P Reviewed: Yes Patient was examined?: Yes
[2023-06-05 21:29] LABS: BILIRUBIN,URINE 1+ (NEGATIVE); BLOOD/HEMOGLOBIN,URINE NEGATIVE (NEGATIVE); GLUCOSE, URINE NEGATIVE (NEGATIVE); KETONES,URINE 2+ (NEGATIVE); LEUKOCYTE ESTERASE ,URINE NEGATIVE (NEGATIVE); NITRITES,URINE NEGATIVE (NEGATIVE); PROTEIN,URINE 1+ (NEGATIVE); UROBILINOGEN,URINE 3+ (NORMAL)
[2023-06-05 21:38] LABS: APPEARANCE,URINE CLEAR (CLEAR); BACTERIA,URINE NEGATIVE /HPF (NEGATIVE); COLOR,URINE AMBER (YELLOW); RBC,URINE NONE SEEN /HPF (0-3); SQUAMOUS EPITHELIAL CELL,UR RARE /HPF (NEGATIVE)
[2023-06-06] MEDS: PHENOBARBITAL SODIUM INJ 65 MG VIAL IM PRN (02:12)
[2023-06-06] MEDS: LIBRIUM PO PRN ×4 (03:58→23:08)
[2023-06-06 05:37] LABS: EOSINOPHILS % (AUTO) 0.2 % (0.9-2.9); LYMPHOCYTES # (AUTO) 0.9 X10^3/uL (1.3-2.9); LYMPHOCYTES % (AUTO) 8.2 % (21.0-51.0); MONOCYTES # (AUTO) 0.5 x10^3/uL (0.3-0.8)
[2023-06-06 05:38] LABS: ALANINE AMINOTRANSFERASE 12 Units/L (12-78); ALBUMIN 3.1 g/dL (3.4-5.0); ALKALINE PHOSPHATASE 159 Units/L (46-116); ASPARTATE AMINO TRANSFERASE 92 Units/L (15-37); BLOOD UREA NITROGEN 13 mg/dL (7-18); CHLORIDE 92 mmol/L (98-107); COR CA(FOR HYPOALB) 8.7 mg/dL (8.5-10.1); COR NA(FOR HYPERGLY) 131 mmol/L (136-145); CREATININE 0.85 mg/dL (0.70-1.30); GLUCOSE 115 mg/dL (65-99); MAGNESIUM 2.5 mg/dL (2.0-2.9); SODIUM 131 mmol/L (136-145); TOTAL PROTEIN 7.4 g/dL (6.4-8.2); eGFR NON BLACK RACES > 60 (>60)
[2023-06-06 05:44] LABS: BASOPHILS % (AUTO) 0.3 % (0.2-1.0); MEAN CORPUSCULAR HEMOGLOBIN 35.7 pg (27.0-34.0); MEAN CORPUSCULAR HGB CONC 32.8 g/dL (33.0-35.0); MEAN CORPUSCULAR VOLUME 108.8 fL (80.0-100.0); MEAN PLATELET VOLUME 7.2 fL (7.4-11.0); MONOCYTES % (AUTO) 4.8 % (0.0-13.0); NEUTROPHILS # (AUTO) 9.6 x10^3/uL (2.2-4.8); NEUTROPHILS % (AUTO) 86.5 % (42.0-75.0); PLATELET COUNT 129 X10^3/uL (150.0-450.0); RED BLOOD COUNT 1.78 X10^6/uL (4.7-6.0); RED CELL DISTRIBUTION WIDTH 16.9 % (11.6-16.5); WHITE BLOOD COUNT 11.1 X10^3/uL (3.6-10.0)
[2023-06-06 06:06] LABS: HEMATOCRIT 19.3 % (42.0-54.0); HEMOGLOBIN 6.3 g/dL (13.5-18.0)
[2023-06-06 06:07] LABS: ANISOCYTOSIS SLIGHT; PLATELET MORPHOLOGY COMMENT NORMAL (NORMAL); STOMATOCYTES PRESENT
[2023-06-06] MEDS: MAGNESIUM SULFATE 1 GRAM/100 mL PREMIX 1 G/100 ML BAG IV SCH ×3 (06:21→21:11)
[2023-06-06] MEDS ORDERED: LASIX IVP PRN (08:43)
[2023-06-06] MEDS ORDERED: PROTONIX INJ 40 MG VIAL IVP ONE (08:43)
[2023-06-06] MEDS ORDERED: BENADRYL INJ 50 MG VIAL IVP ONE (08:52)
[2023-06-06] MEDS ORDERED: PROTONIX INJ 40 MG VIAL ONE (09:05)
[2023-06-06] MEDS: FOLTX PO SCH (09:20)
[2023-06-06] MEDS: THIAMINE HCL INJ IM SCH (09:20)
[2023-06-06] MEDS: PHENOBARBITAL TAB 30 MG (32.4MG) PO SCH ×4 (09:20→20:31)
[2023-06-06] MEDS ORDERED: NS 500 ML IV 500 ML IV ONE (10:49)
[2023-06-06] MEDS: VALIUM PO PRN ×2 (11:42→20:31)
[2023-06-06] MEDS: NORCO 5/325 MG TAB PO PRN ×2 (13:28→20:44)
[2023-06-06] MEDS: NS 1,000 ML IV 1,000 ML with MAGNESIUM SULFATE 50% INJ VIAL 1 G, MVI INJ (ADULT) 10 ML IV SCH ×3 (17:37)
[2023-06-06] MEDS: MORPHINE SULFATE INJ 4 MG IVP PRN ×2 (17:38→22:45)
[2023-06-06 18:51] LABS: HEMATOCRIT 23.9 % (42.0-54.0); HEMOGLOBIN 8.1 g/dL (13.5-18.0)
[2023-06-06] MEDS ORDERED: CONSULT PHARMACY - POTASSIUM & MAGNESIUM XX SCH (19:00)
[2023-06-06] MEDS: K-DUR TAB 20 MEQ PO SCH ×2 (20:30→22:45)
[2023-06-06] MEDS: AMBIEN PO SCH (20:33)
[2023-06-07] MEDS: K-DUR TAB 20 MEQ PO SCH (01:01)
[2023-06-07] MEDS: PHENOBARBITAL SODIUM INJ 65 MG VIAL IM PRN ×2 (01:04→11:08)
[2023-06-07 05:07] LABS: BASOPHILS % (AUTO) 0.2 % (0.2-1.0); EOSINOPHILS % (AUTO) 0.3 % (0.9-2.9); HEMATOCRIT 22.8 % (42.0-54.0); HEMOGLOBIN 7.8 g/dL (13.5-18.0); LYMPHOCYTES # (AUTO) 1.3 X10^3/uL (1.3-2.9); LYMPHOCYTES % (AUTO) 12.7 % (21.0-51.0); MEAN CORPUSCULAR HGB CONC 34.2 g/dL (33.0-35.0); MEAN CORPUSCULAR VOLUME 102.4 fL (80.0-100.0); MEAN PLATELET VOLUME 7.7 fL (7.4-11.0); MONOCYTES # (AUTO) 0.8 x10^3/uL (0.3-0.8); MONOCYTES % (AUTO) 7.2 % (0.0-13.0); NEUTROPHILS # (AUTO) 8.3 x10^3/uL (2.2-4.8); NEUTROPHILS % (AUTO) 79.6 % (42.0-75.0); PLATELET COUNT 113 X10^3/uL (150.0-450.0); RED BLOOD COUNT 2.23 X10^6/uL (4.7-6.0); RED CELL DISTRIBUTION WIDTH 20.7 % (11.6-16.5); WHITE BLOOD COUNT 10.5 X10^3/uL (3.6-10.0)
[2023-06-07 05:10] LABS: ALANINE AMINOTRANSFERASE 32 Units/L (12-78); ALBUMIN 3.1 g/dL (3.4-5.0); ALKALINE PHOSPHATASE 155 Units/L (46-116); ASPARTATE AMINO TRANSFERASE 110 Units/L (15-37); BLOOD UREA NITROGEN 14 mg/dL (7-18); CARBON DIOXIDE 33.2 mmol/L (21-32); CHLORIDE 92 mmol/L (98-107); COR CA(FOR HYPOALB) 8.7 mg/dL (8.5-10.1); CREATININE 0.87 mg/dL (0.70-1.30); GLUCOSE 100 mg/dL (65-99); POTASSIUM 3.3 mmol/L (3.5-5.1); SODIUM 132 mmol/L (136-145); TOTAL PROTEIN 7.2 g/dL (6.4-8.2); eGFR NON BLACK RACES > 60 (>60)
[2023-06-07] MEDS: LIBRIUM PO PRN ×3 (05:45→20:48)
[2023-06-07] MEDS: MAGNESIUM SULFATE 1 GRAM/100 mL PREMIX 1 G/100 ML BAG IV SCH (05:46)
[2023-06-07 05:50] LABS: ANISOCYTOSIS 1+; PLATELET MORPHOLOGY COMMENT NORMAL (NORMAL); STOMATOCYTES PRESENT
[2023-06-07] MEDS ORDERED: CONSULT PHARMACY - POTASSIUM & MAGNESIUM XX SCH (06:00)
[2023-06-07] MEDS: VALIUM PO PRN (07:06)
[2023-06-07] MEDS ORDERED: K-DUR TAB 20 MEQ PO ONE (07:35)
[2023-06-07] MEDS: THIAMINE HCL INJ IM SCH (08:06)
[2023-06-07] MEDS: PHENOBARBITAL TAB 30 MG (32.4MG) PO SCH ×4 (08:07→20:47)
[2023-06-07] MEDS: NORCO 5/325 MG TAB PO PRN (08:10)
[2023-06-07] MEDS: FOLTX PO SCH (08:11)
[2023-06-07] MEDS ORDERED: K-DUR TAB 20 MEQ PO SCH (09:00)
[2023-06-07] MEDS: MORPHINE SULFATE INJ 4 MG IVP PRN ×2 (09:51→20:47)
[2023-06-07] MEDS: VISTARIL PO PRN (13:49)
--- NOTE | 2023-06-07 14:26 | PCM.PROG ---
Progress Note Progress Note for Day of Date of Exam: 06/06/23 Subjective Subjective: The patient reports she had a rough night this morning. His hemoglobin has dropped to 6.3, so we will go ahead and plan on transfusing 2 units of packed red blood cells today. We will premedicate him with Benadryl and Tylenol prior to transfusion. Will continue him on the alcohol detox pr otocol. His folate level was low and he has been started on folic acid 1 mg p.o. daily. Past Medical Family Social History Allergies: Allergies shellfish derived Allergy (Verified 06/27/19 23:54) Review of Systems ROS: Changes notes (describe) (Insomnia) Vital Signs and I&O's Vital Signs: Vital Signs Temperature 98.0 F Pulse Rate 101 Pulse Rate 102 Pulse Rate 103 Pulse Rate 101 Pulse Rate 102 Pulse Rate 102 Pulse Rate 101 Pulse Rate 104 Pulse Rate 105 Pulse Rate 106 Pulse Rate 108 Pulse Rate 107 Pulse Rate 106 Pulse Rate 109 Pulse Rate 105 Pulse Rate 105 Pulse Rate 109 Pulse Rate 103 Pulse Rate 105 Pulse Rate 106 Pulse Rate 107 Pulse Rate 113 Respiratory Rate 26 Respiratory Rate 27 Respiratory Rate 34 Respiratory Rate 25 Respiratory Rate 18 Respiratory Rate 26 Respiratory Rate 28 Respiratory Rate 24 Respiratory Rate 16 Respiratory Rate 41 Respiratory Rate 35 Respiratory Rate 20 Respiratory Rate 28 Respiratory Rate 26 Respiratory Rate 31 Respiratory Rate 27 Respiratory Rate 29 Respiratory Rate 20 Respiratory Rate 28 Respiratory Rate 33 Respiratory Rate 27 Respiratory Rate 26 Respiratory Rate 30 Respiratory Rate 21 Respiratory Rate 33 Blood Pressure 120/83 Blood Pressure 137/60 Blood Pressure 128/78 Blood Pressure 130/66 Blood Pressure 129/70 Blood Pressure 131/91 O2 Sat by Pulse Oximetry 94 O2 Sat by Pulse Oximetry 93 O2 Sat by Pulse Oximetry 90 O2 Sat by Pulse Oximetry 94 O2 Sat by Pulse Oximetry 95 O2 Sat by Pulse Oximetry 96 O2 Sat by Pulse Oximetry 95 O2 Sat by Pulse Oximetry 95 O2 Sat by Pulse Oximetry 92 O2 Sat by Pulse Oximetry 95 O2 Sat by Pulse Oximetry 95 O2 Sat by Pulse Oximetry 97 O2 Sat by Pulse Oximetry 92 O2 Sat by Pulse Oximetry 91 O2 Sat by Pulse Oximetry 96 O2 Sat by Pulse Oximetry 93 Intake and Output: Intake & Output 06/05/23 06/06/23 06/07/23 06/08/23 11:59 11:59 11:59 11:59 Intake Total 40 / 40 2141 / 2141 3927 / 3927 Output Total 575 / 575 50 / 50 2200 / 2200 Balance -535 / -535 2091 / 2091 1727 / 1727 Physical Exam Oriented: Normal, Time, Person and Place Eyes: Normal Ear: Normal Nose: Normal Throat: Normal Respiratory: Normal Cardiovascular: Normal : Normal Auscultation: Bowel Sounds: Normal Tenderness: Diffuse and Epigastric Skin: Normal Musculoskeletal: Normal Psychiatric: Anxiety and Depression Mood Description: Calm, Sad and Anxious Affect: Anxious, Depressed and Quiet Speech Pattern: Clear and Appropriate Laboratory and Diagnostics 06/07/23 04:38 06/07/23 04:38 Labs: Laboratory WBC 10.5 X10^3/uL (3.6-10.0) H 06/07/23 04:38 RBC 2.23 X10^6/uL (4.7-6.0) L 06/07/23 04:38 Hgb 7.8 g/dL (13.5-18.0) L 06/07/23 04:38 Hct 22.8 % (42.0-54.0) L 06/07/23 04:38 MCV 102.4 fL (80.0-100.0) H 06/07/23 04:38 MCH 35.0 pg (27.0-34.0) H 06/07/23 04:38 MCHC 34.2 g/dL (33.0-35.0) 06/07/23 04:38 RDW 20.7 % (11.6-16.5) H 06/07/23 04:38 Plt Count 113 X10^3/uL (150.0-450.0) L 06/07/23 04:38 Plt Count Comment Decreased (ADEQUATE) 06/07/23 04:38 MPV 7.7 fL (7.4-11.0) 06/07/23 04:38 Neut % (Auto) 79.6 % (42.0-75.0) H 06/07/23 04:38 Lymph % (Auto) 12.7 % (21.0-51.0) L 06/07/23 04:38 [place] % (Auto) 7.2 % (0.0-13.0) 06/07/23 04:38 Eos % (Auto) 0.3 % (0.9-2.9) L 06/07/23 04:38 Baso % (Auto) 0.2 % (0.2-1.0) 06/07/23 04:38 Neut # (Auto) 8.3 x10^3/uL (2.2-4.8) H 06/07/23 04:38 Lymph # (Auto) 1.3 X10^3/uL (1.3-2.9) 06/07/23 04:38 [place] # (Auto) 0.8 x10^3/uL (0.3-0.8) 06/07/23 04:38 Eos # (Auto) 0.0 x10^3/uL (0.0-0.2) 06/07/23 04:38 Baso # (Auto) 0.0 X10^3/uL (0.0-0.1) 06/07/23 04:38 Absolute Nucleated RBC 0.2 /100WBC 06/07/23 04:38 Plt Morphology Comment Normal (NORMAL) 06/07/23 04:38 RBC Morphology Abnormal (NORMAL) 06/07/23 04:38 Anisocytosis 1+ A 06/07/23 04:38 Macrocytosis Slight A 06/07/23 04:38 Ovalocytes Present 06/05/23 04:56 Stomatocytes Present 06/07/23 04:38 Absolute Retic 0.0355 10^6/uL 06/05/23 04:56 Percent Retic 1.88 % (0.8-2.2) 06/05/23 04:56 PT 17.8 SECONDS (11.8-14.3) 06/05/23 04:56 INR Target Range - 06/05/23 04:56 INR 1.50 (0.8-1.3) H 06/05/23 04:56 APTT 41.0 SECONDS (22.9-36.5) H 06/05/23 04:56 PTT Comment - 06/05/23 04:56 Sodium 132 mmol/L (136-145) L 06/07/23 04:38 Corrected Sodium TNP 06/07/23 04:38 Potassium 3.3 mmol/L (3.5-5.1) L 06/07/23 04:38 Chloride 92 mmol/L (98-107) L 06/07/23 04:38 Carbon Dioxide 33.2 mmol/L (21-32) H 06/07/23 04:38 BUN 14 mg/dL (7-18) 06/07/23 04:38 Creatinine 0.87 mg/dL (0.70-1.30) 06/07/23 04:38 Est GFR (MDRD) Af Amer > 60 (>60) 06/07/23 04:38 Est GFR (MDRD) Non-Af > 60 (>60) 06/07/23 04:38 Glucose 100 mg/dL (65-99) H 06/07/23 04:38 Calcium 8.0 mg/dL (8.5-10.1) L 06/07/23 04:38 Corrected Calcium 8.7 mg/dL (8.5-10.1) 06/07/23 04:38 Magnesium 2.4 mg/dL (2.0-2.9) 06/07/23 04:38 Iron 278 ug/dL (50-175) H 06/04/23 16:20 Iron 279 ug/dL (50-175) H 06/04/23 16:20 TIBC 323 ug/dL (250-450) 06/04/23 16:20 % Saturation 86.4 % (11.0-46.0) H 06/04/23 16:20 Transferrin 208 mg/dL (202-364) 06/04/23 16:20 Ferritin 1503 ng/mL (26-388) H 06/04/23 16:20 Total Bilirubin 3.70 mg/dL (0.2-1.0) H 06/07/23 04:38 AST 110 Units/L (15-37) H 06/07/23 04:38 ALT 32 Units/L (12-78) 06/07/23 04:38 Alkaline Phosphatase 155 Units/L (46-116) H 06/07/23 04:38 Creatine Kinase 46 Units/L (39-308) 06/04/23 16:20 Troponin I High Sens 4.5 ng/L (4.0-60.0) 06/04/23 16:20 Total Protein 7.2 g/dL (6.4-8.2) 06/07/23 04:38 Albumin 3.1 g/dL (3.4-5.0) L 06/07/23 04:38 Globulin 4.1 g/dL (2.5-4.5) 06/07/23 04:38 Albumin/Globulin Ratio 0.8 Ratio (1.1-2.1) L 06/07/23 04:38 Amylase 36 Units/L (25-115) 06/04/23 16:20 Lipase 66 Units/L (16-77) 06/04/23 16:20 Vitamin B12 475 pg/mL (193-986) 06/05/23 04:56 Folate 2.4 ng/mL (>8.6) L 06/05/23 04:56 Specimen Type Clean catch urine 06/05/23 21:11 Urine Color [place] (YELLOW) 06/05/23 21:11 Urine Appearance Clear (CLEAR) 06/05/23 21:11 Urine pH 6.0 (5.0 - 8.0) 06/05/23 21:11 Ur Specific [place] 1.020 (1.000-1.030) 06/05/23 21:11 Urine Protein 1+ (NEGATIVE) 06/05/23 21:11 Urine Glucose (UA) Negative (NEGATIVE) 06/05/23 21:11 Urine Ketones 2+ (NEGATIVE) 06/05/23 21:11 Urine Blood Negative (NEGATIVE) 06/05/23 21:11 Urine Nitrite Negative (NEGATIVE) 06/05/23 21:11 Urine Bilirubin 1+ (NEGATIVE) 06/05/23 21:11 Urine Urobilinogen 3+ (NORMAL) 06/05/23 21:11 Ur Leukocyte Esterase Negative (NEGATIVE) 06/05/23 21:11 Urine RBC None seen /HPF (0-3) 06/05/23 21:11 Urine WBC 0-2 /HPF (0-5) 06/05/23 21:11 Ur Squamous Epith Cells Rare /HPF (NEGATIVE) 06/05/23 21:11 Urine Bacteria Negative /HPF (NEGATIVE) 06/05/23 21:11 Ur Culture Indicated? No/not indicated 06/05/23 21:11 Urine Opiates Screen Positive (NEG=<300) 06/05/23 21:11 Urine Methadone Screen Negative (NEG=<300) 06/05/23 21:11 Ur Barbiturates Screen Negative (NEG=<200) 06/05/23 21:11 Ur Phencyclidine Scrn Negative (NEG=<25) 06/05/23 21:11 Ur Amphetamines Screen Negative (NEG=<1000) 06/05/23 21:11 U Benzodiazepines Scrn Negative (NEG=<200) 06/05/23 21:11 Urine Cocaine Screen Negative (NEG=<300) 06/05/23 21:11 U Marijuana (THC) Screen Negative (NEG=<50) 06/05/23 21:11 Ethyl Alcohol mg/dL < 3 mg/dL (0-19.9) 06/05/23 04:56 Blood Type A NEGATIVE 06/04/23 17:48 Blood Type A NEGATIVE 06/04/23 17:48 Antibody Screen Negative 06/04/23 17:48 Crossmatch See Detail 06/04/23 17:48 Plan (1) Acute hypokalemia: Status: Acute Narrative Support Text: The patient's potassium level is improving daily. Plan: Potassium replacement protocol. (2) Hepatosplenomegaly: Status: Acute Plan: Consult gastroenterology (3) Hepatic steatosis: Status: Acute Plan: Consult gastroenterology (4) Pancreatic atrophy: Status: Acute Plan: Gastroenterology consultation. (5) Diffuse abdominal pain: Status: Acute Plan: Monitor for improvement and pain control as needed. (6) Alcohol use disorder: Status: Acute Plan: Alcohol detox protocol. Counseled patient on alcohol cessation. (7) Folate deficiency: Status: Acute Plan: Continue folate 1 mg p.o. daily. (8) Elevated ferritin level: Status: Acute Plan: Discussed with gastroenterology to see if patient needs a workup for hemochromatosis or if they think that the high ferritin and iron levels are secondary to chronic alcohol ingestion. (9) Macrocytic anemia: Status: Acute Plan: Transfused 2 units of packed red blood cells today. Prior to najera sfusion we will premedicate the patient with IV Benadryl and Tylenol to prevent transfusion reaction. We will also give him Lasix 40 mg IV x 1 between the first and second unit of blood.
--- NOTE | 2023-06-07 14:36 | PCM.PROG ---
Progress Note Progress Note for Day of Date of Exam: 06/07/23 Subjective Subjective: The patient reports that he did not sleep again last night. Yesterday, I ordered him Valium and he has been receiving it for anxiety and insomnia. His hemoglobin is up to 7.8 g this morning. Yesterday, after transfusion, he got up to 8.1. He is on day 3 since stopping drinking so I told him that his worst days will probably be today and tomorrow. His potassium is improved at 3.3 this morning so we will continue to correct it with potassium replacement protocol. His vital signs show that he is mildly tachycardic and mildly tachypneic. His O2 sat is running between 90 to 97% on room air. Will continue his current treatment and recheck him again tomorrow morning. Past Medical Family Social History Allergies: Allergies shellfish derived Allergy (Verified 06/27/19 23:54) Review of Systems ROS: Changes notes (describe) (Insomnia) Vital Signs and I&O's Vital Signs: Vital Signs Temperature 98.0 F Pulse Rate 101 Pulse Rate 102 Pulse Rate 103 Pulse Rate 101 Pulse Rate 102 Pulse Rate 102 Pulse Rate 101 Pulse Rate 104 Pulse Rate 105 Pulse Rate 106 Pulse Rate 108 Pulse Rate 107 Pulse Rate 106 Pulse Rate 109 Pulse Rate 105 Pulse Rate 105 Pulse Rate 109 Pulse Rate 103 Pulse Rate 105 Pulse Rate 106 Pulse Rate 107 Respiratory Rate 26 Respiratory Rate 27 Respiratory Rate 34 Respiratory Rate 25 Respiratory Rate 18 Respiratory Rate 26 Respiratory Rate 28 Respiratory Rate 24 Respiratory Rate 16 Respiratory Rate 41 Respiratory Rate 35 Respiratory Rate 20 Respiratory Rate 28 Respiratory Rate 26 Respiratory Rate 31 Respiratory Rate 27 Respiratory Rate 29 Respiratory Rate 20 Respiratory Rate 28 Respiratory Rate 33 Respiratory Rate 27 Respiratory Rate 26 Respiratory Rate 30 Respiratory Rate 21 Respiratory Rate 33 Blood Pressure 120/83 Blood Pressure 137/60 Blood Pressure 128/78 Blood Pressure 130/66 Blood Pressure 129/70 Blood Pressure 131/91 O2 Sat by Pulse Oximetry 94 O2 Sat by Pulse Oximetry 93 O2 Sat by Pulse Oximetry 90 O2 Sat by Pulse Oximetry 94 O2 Sat by Pulse Oximetry 95 O2 Sat by Pulse Oximetry 96 O2 Sat by Pulse Oximetry 95 O2 Sat by Pulse Oximetry 95 O2 Sat by Pulse Oximetry 92 O2 Sat by Pulse Oximetry 95 O2 Sat by Pulse Oximetry 95 O2 Sat by Pulse Oximetry 97 O2 Sat by Pulse Oximetry 92 O2 Sat by Pulse Oximetry 91 O2 Sat by Pulse Oximetry 96 Intake and Output: Intake & Output 06/05/23 06/06/23 06/07/23 06/08/23 11:59 11:59 11:59 11:59 Intake Total 40 / 40 2141 / 2141 3927 / 3927 Output Total 575 / 575 50 / 50 2200 / 2200 Balance -535 / -535 2090 / 2090 1727 / 1727 Physical Exam Oriented: Normal, Time, Person and Place Eyes: Normal Ear: Normal Nose: Normal Throat: Normal Respiratory: Normal Cardiovascular: Normal : Normal Auscultation: Bowel Sounds: Normal Tenderness: Diffuse and Epigastric Skin: Normal Musculoskeletal: Normal Psychiatric: Anxiety and Depression Mood Description: Calm, Sad and Anxious Affect: Anxious, Depressed and Quiet Speech Pattern: Clear and Appropriate Laboratory and Diagnostics 06/07/23 04:38 06/07/23 04:38 Labs: Laboratory WBC 10.5 X10^3/uL (3.6-10.0) H 06/07/23 04:38 RBC 2.23 X10^6/uL (4.7-6.0) L 06/07/23 04:38 Hgb 7.8 g/dL (13.5-18.0) L 06/07/23 04:38 Hct 22.8 % (42.0-54.0) L 06/07/23 04:38 MCV 102.4 fL (80.0-100.0) H 06/07/23 04:38 MCH 35.0 pg (27.0-34.0) H 06/07/23 04:38 MCHC 34.2 g/dL (33.0-35.0) 06/07/23 04:38 RDW 20.7 % (11.6-16.5) H 06/07/23 04:38 Plt Count 113 X10^3/uL (150.0-450.0) L 06/07/23 04:38 Plt Count Comment Decreased (ADEQUATE) 06/07/23 04:38 MPV 7.7 fL (7.4-11.0) 06/07/23 04:38 Neut % (Auto) 79.6 % (42.0-75.0) H 06/07/23 04:38 Lymph % (Auto) 12.7 % (21.0-51.0) L 06/07/23 04:38 [place] % (Auto) 7.2 % (0.0-13.0) 06/07/23 04:38 Eos % (Auto) 0.3 % (0.9-2.9) L 06/07/23 04:38 Baso % (Auto) 0.2 % (0.2-1.0) 06/07/23 04:38 Neut # (Auto) 8.3 x10^3/uL (2.2-4.8) H 06/07/23 04:38 Lymph # (Auto) 1.3 X10^3/uL (1.3-2.9) 06/07/23 04:38 [place] # (Auto) 0.8 x10^3/uL (0.3-0.8) 06/07/23 04:38 Eos # (Auto) 0.0 x10^3/uL (0.0-0.2) 06/07/23 04:38 Baso # (Auto) 0.0 X10^3/uL (0.0-0.1) 06/07/23 04:38 Absolute Nucleated RBC 0.2 /100WBC 06/07/23 04:38 Plt Morphology Comment Normal (NORMAL) 06/07/23 04:38 RBC Morphology Abnormal (NORMAL) 06/07/23 04:38 Anisocytosis 1+ A 06/07/23 04:38 Macrocytosis Slight A 06/07/23 04:38 Ovalocytes Present 06/05/23 04:56 Stomatocytes Present 06/07/23 04:38 Absolute Retic 0.0355 10^6/uL 06/05/23 04:56 Percent Retic 1.88 % (0.8-2.2) 06/05/23 04:56 PT 17.8 SECONDS (11.8-14.3) 06/05/23 04:56 INR Target Range - 06/05/23 04:56 INR 1.50 (0.8-1.3) H 06/05/23 04:56 APTT 41.0 SECONDS (22.9-36.5) H 06/05/23 04:56 PTT Comment - 06/05/23 04:56 Sodium 132 mmol/L (136-145) L 06/07/23 04:38 Corrected Sodium TNP 06/07/23 04:38 Potassium 3.3 mmol/L (3.5-5.1) L 06/07/23 04:38 Chloride 92 mmol/L (98-107) L 06/07/23 04:38 Carbon Dioxide 33.2 mmol/L (21-32) H 06/07/23 04:38 BUN 14 mg/dL (7-18) 06/07/23 04:38 Creatinine 0.87 mg/dL (0.70-1.30) 06/07/23 04:38 Est GFR (MDRD) Af Amer > 60 (>60) 06/07/23 04:38 Est GFR (MDRD) Non-Af > 60 (>60) 06/07/23 04:38 Glucose 100 mg/dL (65-99) H 06/07/23 04:38 Calcium 8.0 mg/dL (8.5-10.1) L 06/07/23 04:38 Corrected Calcium 8.7 mg/dL (8.5-10.1) 06/07/23 04:38 Magnesium 2.4 mg/dL (2.0-2.9) 06/07/23 04:38 Iron 278 ug/dL (50-175) H 06/04/23 16:20 Iron 279 ug/dL (50-175) H 06/04/23 16:20 TIBC 323 ug/dL (250-450) 06/04/23 16:20 % Saturation 86.4 % (11.0-46.0) H 06/04/23 16:20 Transferrin 208 mg/dL (202-364) 06/04/23 16:20 Ferritin 1503 ng/mL (26-388) H 06/04/23 16:20 Total Bilirubin 3.70 mg/dL (0.2-1.0) H 06/07/23 04:38 AST 110 Units/L (15-37) H 06/07/23 04:38 ALT 32 Units/L (12-78) 06/07/23 04:38 Alkaline Phosphatase 155 Units/L (46-116) H 06/07/23 04:38 Creatine Kinase 46 Units/L (39-308) 06/04/23 16:20 Troponin I High Sens 4.5 ng/L (4.0-60.0) 06/04/23 16:20 Total Protein 7.2 g/dL (6.4-8.2) 06/07/23 04:38 Albumin 3.1 g/dL (3.4-5.0) L 06/07/23 04:38 Globulin 4.1 g/dL (2.5-4.5) 06/07/23 04:38 Albumin/Globulin Ratio 0.8 Ratio (1.1-2.1) L 06/07/23 04:38 Amylase 36 Units/L (25-115) 06/04/23 16:20 Lipase 66 Units/L (16-77) 06/04/23 16:20 Vitamin B12 475 pg/mL (193-986) 06/05/23 04:56 Folate 2.4 ng/mL (>8.6) L 06/05/23 04:56 Specimen Type Clean catch urine 06/05/23 21:11 Urine Color [place] (YELLOW) 06/05/23 21:11 Urine Appearance Clear (CLEAR) 06/05/23 21:11 Urine pH 6.0 (5.0 - 8.0) 06/05/23 21:11 Ur Specific [place] 1.020 (1.000-1.030) 06/05/23 21:11 Urine Protein 1+ (NEGATIVE) 06/05/23 21:11 Urine Glucose (UA) Negative (NEGATIVE) 06/05/23 21:11 Urine Ketones 2+ (NEGATIVE) 06/05/23 21:11 Urine Blood Negative (NEGATIVE) 06/05/23 21:11 Urine Nitrite Negative (NEGATIVE) 06/05/23 21:11 Urine Bilirubin 1+ (NEGATIVE) 06/05/23 21:11 Urine Urobilinogen 3+ (NORMAL) 06/05/23 21:11 Ur Leukocyte Esterase Negative (NEGATIVE) 06/05/23 21:11 Urine RBC None seen /HPF (0-3) 06/05/23 21:11 Urine WBC 0-2 /HPF (0-5) 06/05/23 21:11 Ur Squamous Epith Cells Rare /HPF (NEGATIVE) 06/05/23 21:11 Urine Bacteria Negative /HPF (NEGATIVE) 06/05/23 21:11 Ur Culture Indicated? No/not indicated 06/05/23 21:11 Urine Opiates Screen Positive (NEG=<300) 06/05/23 21:11 Urine Methadone Screen Negative (NEG=<300) 01/16/24 21:11 Ur Barbiturates Screen Negative (NEG=<200) 06/05/23 21:11 Ur Phencyclidine Scrn Negative (NEG=<25) 06/05/23 21:11 Ur Amphetamines Screen Negative (NEG=<1000) 06/05/23 21:11 U Benzodiazepines Scrn Negative (NEG=<200) 06/05/23 21:11 Urine Cocaine Screen Negative (NEG=<300) 06/05/23 21:11 U Marijuana (THC) Screen Negative (NEG=<50) 06/05/23 21:11 Ethyl Alcohol mg/dL < 3 mg/dL (0-19.9) 06/05/23 04:56 Blood Type A NEGATIVE 06/04/23 17:48 Blood Type A NEGATIVE 06/04/23 17:48 Antibody Screen Negative 06/04/23 17:48 Crossmatch See Detail 06/04/23 17:48 Plan (1) Acute hypokalemia: Status: Acute Narrative Support Text: The patient's potassium is increasing daily however he remains slightly low. Plan: Potassium replacement protocol. (2) Hepatosplenomegaly: Status: Acute Plan: Follow-up consult with gastroenterology. (3) Hepatic steatosis: Status: Acute Plan: Follow-up gastroenterology consultation. (4) Pancreatic atrophy: Status: Acute Plan: Follow-up with gastroenterology consultation. (5) Diffuse abdominal pain: Status: Acute Plan: Monitor for improvement and pain control as needed. (6) Alcohol use disorder: Status: Acute Plan: Alcohol detox protocol. Counseled patient on alcohol cessation. (7) Folate deficiency: Status: Acute Plan: Continue folate 1 mg p.o. daily. (8) Elevated ferritin level: Status: Acute Plan: Discussed with gastroenterology to see if patient needs a workup for hemochromatosis or if they think that the high ferritin and iron levels are secondary to chronic alcohol ingestion. (9) Macrocytic anemia: Status: Acute Plan: Transfused 2 units of packed red blood cells today. Prior to transfusion we will premedicate the patient with IV Benadryl and Tylenol to prevent transfusion reaction. We will also give him Lasix 40 mg IV x 1 between the first and second unit of blood. Continue folate supplementation since the patient had a low folate level at 2.4.
[2023-06-07] MEDS: NS 1,000 ML IV 1,000 ML with MAGNESIUM SULFATE 50% INJ VIAL 1 G, MVI INJ (ADULT) 10 ML IV SCH ×3 (16:56)
[2023-06-07] MEDS: VALIUM INJ IVP PRN (17:51)
[2023-06-07] MEDS: AMBIEN PO SCH (20:47)
[2023-06-08] MEDS: VALIUM INJ IVP PRN ×3 (01:07→23:45)
[2023-06-08] MEDS ORDERED: MAGNESIUM SULFATE 50% INJ VIAL ONE (01:48)
[2023-06-08] MEDS ORDERED: NS 1,000 ML IV 1,000 ML ONE (01:48)
[2023-06-08] MEDS: NS 1,000 ML IV 1,000 ML with MAGNESIUM SULFATE 50% INJ VIAL 1 G, MVI INJ (ADULT) 10 ML IV SCH ×6 (01:51→10:00)
[2023-06-08] MEDS: MORPHINE SULFATE INJ 4 MG IVP PRN ×3 (02:00→19:57)
[2023-06-08] MEDS: PHENOBARBITAL SODIUM INJ 65 MG VIAL IM PRN ×2 (05:12→12:05)
[2023-06-08 05:16] LABS: BASOPHILS # (AUTO) 0.3 X10^3/uL (0.0-0.1); BASOPHILS % (AUTO) 3.4 % (0.2-1.0); EOSINOPHILS # (AUTO) 0.1 x10^3/uL (0.0-0.2); EOSINOPHILS % (AUTO) 1.1 % (0.9-2.9); HEMATOCRIT 22.2 % (42.0-54.0); HEMOGLOBIN 7.6 g/dL (13.5-18.0); LYMPHOCYTES # (AUTO) 1.2 X10^3/uL (1.3-2.9); LYMPHOCYTES % (AUTO) 13.4 % (21.0-51.0); MEAN CORPUSCULAR HEMOGLOBIN 35.2 pg (27.0-34.0); MEAN CORPUSCULAR HGB CONC 34.1 g/dL (33.0-35.0); MEAN CORPUSCULAR VOLUME 103.3 fL (80.0-100.0); MEAN PLATELET VOLUME 7.3 fL (7.4-11.0); MONOCYTES # (AUTO) 0.5 x10^3/uL (0.3-0.8); MONOCYTES % (AUTO) 5.9 % (0.0-13.0); NEUTROPHILS # (AUTO) 6.9 x10^3/uL (2.2-4.8); NEUTROPHILS % (AUTO) 76.2 % (42.0-75.0); PLATELET COUNT 114 X10^3/uL (150.0-450.0); RED BLOOD COUNT 2.15 X10^6/uL (4.7-6.0); RED CELL DISTRIBUTION WIDTH 20.7 % (11.6-16.5); WHITE BLOOD COUNT 9.1 X10^3/uL (3.6-10.0)
[2023-06-08 05:31] LABS: ALANINE AMINOTRANSFERASE 35 Units/L (12-78); ALBUMIN 2.9 g/dL (3.4-5.0); ALKALINE PHOSPHATASE 162 Units/L (46-116); ASPARTATE AMINO TRANSFERASE 106 Units/L (15-37); BLOOD UREA NITROGEN 11 mg/dL (7-18); CALCIUM 7.9 mg/dL (8.5-10.1); CARBON DIOXIDE 31.6 mmol/L (21-32); CHLORIDE 95 mmol/L (98-107); COR CA(FOR HYPOALB) 8.8 mg/dL (8.5-10.1); CREATININE 0.74 mg/dL (0.70-1.30); GLUCOSE 95 mg/dL (65-99); MAGNESIUM 2.2 mg/dL (2.0-2.9); POTASSIUM 3.5 mmol/L (3.5-5.1); SODIUM 134 mmol/L (136-145); TOTAL PROTEIN 7.2 g/dL (6.4-8.2); eGFR NON BLACK RACES > 60 (>60)
[2023-06-08 05:46] LABS: ANISOCYTOSIS 1+; PLATELET MORPHOLOGY COMMENT NORMAL (NORMAL)
[2023-06-08] MEDS ORDERED: CONSULT PHARMACY - POTASSIUM & MAGNESIUM XX SCH (07:00)
[2023-06-08] MEDS ORDERED: PHENOBARBITAL TAB 15 MG (16.2MG) PO SCH (09:00)
[2023-06-08] MEDS ORDERED: K-DUR TAB 20 MEQ PO SCH (09:00)
[2023-06-08] MEDS: FOLTX PO SCH (09:47)
[2023-06-08] MEDS: PHENOBARBITAL TAB 30 MG (32.4MG) PO SCH ×4 (09:48→20:02)
[2023-06-08] MEDS: NORCO 5/325 MG TAB PO PRN (09:51)
[2023-06-08] MEDS: LIBRIUM PO PRN (19:56)
[2023-06-08] MEDS: VISTARIL PO PRN (20:04)
[2023-06-09] MEDS: MORPHINE SULFATE INJ 4 MG IVP PRN ×3 (02:17→20:15)
[2023-06-09 05:36] LABS: BASOPHILS % (AUTO) 0.5 % (0.2-1.0); EOSINOPHILS % (AUTO) 0.3 % (0.9-2.9); HEMATOCRIT 21.6 % (42.0-54.0); HEMOGLOBIN 7.2 g/dL (13.5-18.0); LYMPHOCYTES # (AUTO) 1.1 X10^3/uL (1.3-2.9); LYMPHOCYTES % (AUTO) 11.8 % (21.0-51.0); MEAN CORPUSCULAR HEMOGLOBIN 35.3 pg (27.0-34.0); MEAN CORPUSCULAR HGB CONC 33.5 g/dL (33.0-35.0); MEAN CORPUSCULAR VOLUME 105.3 fL (80.0-100.0); MEAN PLATELET VOLUME 7.3 fL (7.4-11.0); MONOCYTES # (AUTO) 0.8 x10^3/uL (0.3-0.8); MONOCYTES % (AUTO) 8.8 % (0.0-13.0); NEUTROPHILS # (AUTO) 7.5 x10^3/uL (2.2-4.8); NEUTROPHILS % (AUTO) 78.6 % (42.0-75.0); PLATELET COUNT 130 X10^3/uL (150.0-450.0); RED BLOOD COUNT 2.05 X10^6/uL (4.7-6.0); RED CELL DISTRIBUTION WIDTH 20.6 % (11.6-16.5); WHITE BLOOD COUNT 9.6 X10^3/uL (3.6-10.0)
[2023-06-09 05:48] LABS: ALANINE AMINOTRANSFERASE 41 Units/L (12-78); ALBUMIN 2.9 g/dL (3.4-5.0); ALKALINE PHOSPHATASE 175 Units/L (46-116); ASPARTATE AMINO TRANSFERASE 111 Units/L (15-37); BLOOD UREA NITROGEN 8 mg/dL (7-18); CALCIUM 7.8 mg/dL (8.5-10.1); CARBON DIOXIDE 30.6 mmol/L (21-32); CHLORIDE 97 mmol/L (98-107); COR CA(FOR HYPOALB) 8.7 mg/dL (8.5-10.1); CREATININE 0.63 mg/dL (0.70-1.30); GLUCOSE 104 mg/dL (65-99); POTASSIUM 3.6 mmol/L (3.5-5.1); SODIUM 133 mmol/L (136-145); TOTAL PROTEIN 7.1 g/dL (6.4-8.2); eGFR NON BLACK RACES > 60 (>60)
[2023-06-09 06:29] LABS: ANISOCYTOSIS 1+; PLATELET MORPHOLOGY COMMENT NORMAL (NORMAL)
[2023-06-09 06:30] LABS: STOMATOCYTES SLIGHT
--- NOTE | 2023-06-09 08:36 | PCM.PROG ---
Progress Note Progress Note for Day of Date of Exam: 06/08/23 Subjective Subjective: Pt is a 48-year-old male admitted for alcohol withdrawal and electrolyte abnormalities. This morning he appears to be very anxious and has had difficulty sleeping at night. He does appear to have some tremors in his hands. Labs: WBC 9.1, hemoglobin 7.6, platelets 114, sodium 134, potassium 3.5, creatinine 0.74, glucose 95. Will change patient to a different alcohol detox protocol. Replete electrolytes per protocol. Otherwise continue current treatment plan. Continue closely monitor and follow-up labs. Past Medical Family Social History Allergies: Allergies shellfish derived Allergy (Verified 06/27/19 23:54) Review of Systems ROS changes noted: see HPI Vital Signs and I&O's Vital Signs: Vital Signs Pulse Rate 101 Pulse Rate 105 Pulse Rate 107 Pulse Rate 107 Pulse Rate 106 Pulse Rate 104 Pulse Rate 105 Pulse Rate 107 Pulse Rate 106 Pulse Rate 110 Pulse Rate 111 Pulse Rate 105 Pulse Rate 106 Pulse Rate 107 Pulse Rate 107 Pulse Rate 108 Pulse Rate 108 Pulse Rate 109 Pulse Rate 104 Pulse Rate 109 Pulse Rate 109 Pulse Rate 109 Pulse Rate 109 Pulse Rate 106 Pulse Rate 101 Pulse Rate 102 Pulse Rate 104 Pulse Rate 103 Pulse Rate 104 Pulse Rate 109 Pulse Rate 109 Pulse Rate 101 Pulse Rate 106 Respiratory Rate 25 Respiratory Rate 24 Respiratory Rate 20 Respiratory Rate 36 Respiratory Rate 21 Respiratory Rate 18 Respiratory Rate 21 Respiratory Rate 21 Respiratory Rate 18 Respiratory Rate 24 Respiratory Rate 26 Respiratory Rate 16 Respiratory Rate 16 Respiratory Rate 16 Respiratory Rate 16 Respiratory Rate 17 Respiratory Rate 19 Respiratory Rate 17 Respiratory Rate 18 Respiratory Rate 19 Respiratory Rate 19 Respiratory Rate 19 Respiratory Rate 18 Respiratory Rate 18 Respiratory Rate 17 Respiratory Rate 20 Respiratory Rate 18 Respiratory Rate 27 Blood Pressure 125/83 Blood Pressure 158/78 Blood Pressure 163/81 Blood Pressure 163/81 Blood Pressure 163/61 Blood Pressure 158/96 Blood Pressure 144/86 Blood Pressure 144/86 Blood Pressure 145/69 O2 Sat by Pulse Oximetry 95 Intake and Output: Intake & Output 06/06/23 06/07/23 06/08/23 06/09/23 23:59 23:59 23:59 23:59 Intake Total 4041 / 4041 2704 / 2704 792 / 792 Output Total 1650 / 1650 1150 / 1150 300 / 300 Balance 2391 / 2391 1554 / 1554 492 / 492 Physical Exam Oriented: Person and Place Eyes: Normal Ear: Normal Nose: Normal Throat: Normal Respiratory: Normal Cardiovascular: Normal : Normal Auscultation: Bowel Sounds: Normal Palpation: Normal Tenderness: Epigastric Skin: Normal Musculoskeletal: Normal Psychiatric: Normal Mood Description: Calm Affect: Normal Speech Pattern: Clear and Appropriate Laboratory and Diagnostics 06/09/23 05:05 06/09/23 05:05 Labs: Laboratory WBC 9.6 X10^3/uL (3.6-10.0) 06/09/23 05:05 RBC 2.05 X10^6/uL (4.7-6.0) L 06/09/23 05:05 Hgb 7.2 g/dL (13.5-18.0) L 06/09/23 05:05 Hct 21.6 % (42.0-54.0) L 06/09/23 05:05 MCV 105.3 fL (80.0-100.0) H 06/09/23 05:05 MCH 35.3 pg (27.0-34.0) H 06/09/23 05:05 MCHC 33.5 g/dL (33.0-35.0) 06/09/23 05:05 RDW 20.6 % (11.6-16.5) H 06/09/23 05:05 Plt Count 130 X10^3/uL (150.0-450.0) L 06/09/23 05:05 Plt Count Comment Decreased (ADEQUATE) 06/09/23 05:05 MPV 7.3 fL (7.4-11.0) L 06/09/23 05:05 Neut % (Auto) 78.6 % (42.0-75.0) H 06/09/23 05:05 Lymph % (Auto) 11.8 % (21.0-51.0) L 06/09/23 05:05 [place] % (Auto) 8.8 % (0.0-13.0) 06/09/23 05:05 Eos % (Auto) 0.3 % (0.9-2.9) L 06/09/23 05:05 Baso % (Auto) 0.5 % (0.2-1.0) 06/09/23 05:05 Neut # (Auto) 7.5 x10^3/uL (2.2-4.8) H 06/09/23 05:05 Lymph # (Auto) 1.1 X10^3/uL (1.3-2.9) L 06/09/23 05:05 [place] # (Auto) 0.8 x10^3/uL (0.3-0.8) 06/09/23 05:05 Eos # (Auto) 0.0 x10^3/uL (0.0-0.2) 06/09/23 05:05 Baso # (Auto) 0.0 X10^3/uL (0.0-0.1) 06/09/23 05:05 Absolute Nucleated RBC 0.2 /100WBC 06/09/23 05:05 Plt Morphology Comment Normal (NORMAL) 06/09/23 05:05 RBC Morphology Abnormal (NORMAL) 06/09/23 05:05 Anisocytosis 1+ A 06/09/23 05:05 Macrocytosis 1+ A 06/09/23 05:05 Ovalocytes Present 06/05/23 04:56 Stomatocytes Slight A 06/09/23 05:05 Absolute Retic 0.0355 10^6/uL 06/05/23 04:56 Percent Retic 1.88 % (0.8-2.2) 06/05/23 04:56 PT 17.8 SECONDS (11.8-14.3) 06/05/23 04:56 INR Target Range - 06/05/23 04:56 INR 1.50 (0.8-1.3) H 06/05/23 04:56 APTT 41.0 SECONDS (22.9-36.5) H 06/05/23 04:56 PTT Comment - 06/05/23 04:56 Sodium 133 mmol/L (136-145) L 06/09/23 05:05 Corrected Sodium TNP 06/09/23 05:05 Potassium 3.6 mmol/L (3.5-5.1) 06/09/23 05:05 Chloride 97 mmol/L (98-107) L 06/09/23 05:05 Carbon Dioxide 30.6 mmol/L (21-32) 06/09/23 05:05 BUN 8 mg/dL (7-18) 06/09/23 05:05 Creatinine 0.63 mg/dL (0.70-1.30) L 06/09/23 05:05 Est GFR (MDRD) Af Amer > 60 (>60) 06/09/23 05:05 Est GFR (MDRD) Non-Af > 60 (>60) 06/09/23 05:05 Glucose 104 mg/dL (65-99) H 06/09/23 05:05 Calcium 7.8 mg/dL (8.5-10.1) L 06/09/23 05:05 Corrected Calcium 8.7 mg/dL (8.5-10.1) 06/09/23 05:05 Magnesium 2.2 mg/dL (2.0-2.9) 06/08/23 04:23 Iron 278 ug/dL (50-175) H 06/04/23 16:20 Iron 279 ug/dL (50-175) H 06/04/23 16:20 TIBC 323 ug/dL (250-450) 06/04/23 16:20 % Saturation 86.4 % (11.0-46.0) H 06/04/23 16:20 Transferrin 208 mg/dL (202-364) 06/04/23 16:20 Ferritin 1503 ng/mL (26-388) H 06/04/23 16:20 Total Bilirubin 2.10 mg/dL (0.2-1.0) H 06/09/23 05:05 AST 111 Units/L (15-37) H 06/09/23 05:05 ALT 41 Units/L (12-78) 06/09/23 05:05 Alkaline Phosphatase 175 Units/L (46-116) H 06/09/23 05:05 Creatine Kinase 46 Units/L (39-308) 06/04/23 16:20 Troponin I High Sens 4.5 ng/L (4.0-60.0) 06/04/23 16:20 Total Protein 7.1 g/dL (6.4-8.2) 06/09/23 05:05 Albumin 2.9 g/dL (3.4-5.0) L 06/09/23 05:05 Globulin 4.2 g/dL (2.5-4.5) 06/09/23 05:05 Albumin/Globulin Ratio 0.7 Ratio (1.1-2.1) L 06/09/23 05:05 Amylase 36 Units/L (25-115) 06/04/23 16:20 Lipase 66 Units/L (16-77) 06/04/23 16:20 Vitamin B12 475 pg/mL (193-986) 06/05/23 04:56 Folate 2.4 ng/mL (>8.6) L 06/05/23 04:56 Specimen Type Clean catch urine 06/05/23 21:11 Urine Color [place] (YELLOW) 06/05/23 21:11 Urine Appearance Clear (CLEAR) 06/05/23 21:11 Urine pH 6.0 (5.0 - 8.0) 06/05/23 21:11 Ur Specific [place] 1.020 (1.000-1.030) 06/05/23 21:11 Urine Protein 1+ (NEGATIVE) 06/05/23 21:11 Urine Glucose (UA) Negative (NEGATIVE) 06/05/23 21:11 Urine Ketones 2+ (NEGATIVE) 06/05/23 21:11 Urine Blood Negative (NEGATIVE) 06/05/23 21:11 Urine Nitrite Negative (NEGATIVE) 06/05/23 21:11 Urine Bilirubin 1+ (NEGATIVE) 06/05/23 21:11 Urine Urobilinogen 3+ (NORMAL) 06/05/23 21:11 Ur Leukocyte Esterase Negative (NEGATIVE) 06/05/23 21:11 Urine RBC None seen /HPF (0-3) 06/05/23 21:11 Urine WBC 0-2 /HPF (0-5) 06/05/23 21:11 Ur Squamous Epith Cells Rare /HPF (NEGATIVE) 06/05/23 21:11 Urine Bacteria Negative /HPF (NEGATIVE) 06/05/23 21:11 Ur Culture Indicated? No/not indicated 06/05/23 21:11 Urine Opiates Screen Positive (NEG=<300) 06/05/23 21:11 Urine Methadone Screen Negative (NEG=<300) 06/05/23 21:11 Ur Barbiturates Screen Negative (NEG=<200) 06/05/23 21:11 Ur Phencyclidine Scrn Negative (NEG=<25) 06/05/23 21:11 Ur Amphetamines Screen Negative (NEG=<1000) 06/05/23 21:11 U Benzodiazepines Scrn Negative (NEG=<200) 06/05/23 21:11 Urine Cocaine Screen Negative (NEG=<300) 06/05/23 21:11 U Marijuana (THC) Screen Negative (NEG=<50) 06/05/23 21:11 Ethyl Alcohol mg/dL < 3 mg/dL (0-19.9) 06/05/23 04:56 Blood Type A NEGATIVE 06/04/23 17:48 Blood Type A NEGATIVE 06/04/23 17:48 Antibody Screen Negative 06/04/23 17:48 Crossmatch See Detail 06/04/23 17:48 Plan (1) Acute hypokalemia: Status: Acute Plan: Potassium replacement protocol. (2) Hepatosplenomegaly: Status: Acute Plan: Follow-up consult with gastroenterology. (3) Hepatic steatosis: Status: Acute Plan: Follow-up gastroenterology consultation. (4) Pancreatic atrophy: Status: Acute Plan: Follow-up with gastroenterology consultation. (5) Diffuse abdominal pain: Status: Acute Plan: Monitor for improvement and pain control as needed. (6) Alcohol use disorder: Status: Acute Plan: Alcohol detox protocol. Counseled patient on alcohol cessation. (7) Folate deficiency: Status: Acute Plan: Continue folate 1 mg p.o. daily. (8) Elevated ferritin level: Status: Acute Plan: Discussed with gastroenterology to see if patient needs a workup for hemochromatosis or if they think that the high ferritin and iron levels are secondary to chronic alcohol ingestion. (9) Macrocytic anemia: Status: Acute Plan: Transfused 2 units of packed red blood cells today. Continue folate supplementation since the patient had a low folate level at 2.4.
[2023-06-09] MEDS: FOLTX PO SCH (08:39)
[2023-06-09] MEDS: LIBRIUM PO PRN ×2 (08:39→20:14)
[2023-06-09] MEDS: PHENOBARBITAL TAB 30 MG (32.4MG) PO SCH ×4 (08:39→20:14)
[2023-06-09] MEDS ORDERED: CONSULT PHARMACY - POTASSIUM & MAGNESIUM XX SCH (09:00)
[2023-06-09] MEDS: NS 1,000 ML IV 1,000 ML with MAGNESIUM SULFATE 50% INJ VIAL 1 G, MVI INJ (ADULT) 10 ML IV SCH ×3 (09:43)
[2023-06-09 09:59] LABS: BILIRUBIN,URINE 1+ (NEGATIVE); BLOOD/HEMOGLOBIN,URINE NEGATIVE (NEGATIVE); GLUCOSE, URINE NEGATIVE (NEGATIVE); KETONES,URINE 2+ (NEGATIVE); LEUKOCYTE ESTERASE ,URINE NEGATIVE (NEGATIVE); NITRITES,URINE NEGATIVE (NEGATIVE); PROTEIN,URINE 2+ (NEGATIVE); UROBILINOGEN,URINE 4+ (NORMAL)
[2023-06-09 10:11] LABS: APPEARANCE,URINE CLEAR (CLEAR); COLOR,URINE AMBER (YELLOW)
[2023-06-09 10:12] LABS: BACTERIA,URINE TRACE /HPF (NEGATIVE); RBC,URINE 0-2 /HPF (0-3); SQUAMOUS EPITHELIAL CELL,UR RARE /HPF (NEGATIVE)
--- NOTE | 2023-06-09 11:22 | PCM.PROG ---
Progress Note Progress Note for Day of Date of Exam: 06/09/23 Subjective Subjective: Pt is a 48-year-old male admitted for alcohol withdrawal and electrolyte abnormalities. This morning he appears to be resting in bed comfortably. He has been a little unstable when getting to the restroom, will place waddell today. Labs: WBC 9.6, hemoglobin 7.2, platelets 130, sodium 133, pot assium 3.6, creatinine 0.63, glucose 104. Patient is currently on alcohol detox protocol. Replete electrolytes per protocol. Patient does have anemia, will transfuse 2 units packed red blood cells. Otherwise continue current treatment plan. Continue closely monitor and follow-up labs. Past Medical Family Social History Allergies: Allergies shellfish derived Allergy (Verified 06/27/19 23:54) Review of Systems ROS changes noted: see HPI Vital Signs and I&O's Vital Signs: Vital Signs Pulse Rate 101 Pulse Rate 105 Pulse Rate 107 Pulse Rate 107 Pulse Rate 106 Pulse Rate 104 Pulse Rate 105 Pulse Rate 107 Pulse Rate 106 Pulse Rate 110 Pulse Rate 111 Pulse Rate 105 Pulse Rate 106 Pulse Rate 107 Pulse Rate 107 Pulse Rate 108 Pulse Rate 108 Pulse Rate 109 Pulse Rate 104 Pulse Rate 109 Pulse Rate 109 Respiratory Rate 18 Respiratory Rate 25 Respiratory Rate 24 Respiratory Rate 20 Respiratory Rate 36 Respiratory Rate 21 Respiratory Rate 18 Respiratory Rate 21 Respiratory Rate 21 Respiratory Rate 18 Respiratory Rate 24 Respiratory Rate 26 Respiratory Rate 16 Respiratory Rate 16 Respiratory Rate 16 Respiratory Rate 16 Respiratory Rate 17 Respiratory Rate 19 Respiratory Rate 17 Respiratory Rate 18 Respiratory Rate 19 Respiratory Rate 19 Blood Pressure 125/83 Blood Pressure 158/78 Blood Pressure 163/81 Blood Pressure 163/81 Blood Pressure 163/61 O2 Sat by Pulse Oximetry 95 Intake and Output: Intake & Output 06/06/23 06/07/23 06/08/23 06/09/23 23:59 23:59 23:59 23:59 Intake Total 4041 / 4041 2704 / 2704 792 / 792 Output Total 1650 / 1650 1150 / 1150 300 / 300 550 / 550 Balance 2391 / 2391 1554 / 1554 492 / 492 -550 / -550 Physical Exam Oriented: Person and Place Eyes: Normal Ear: Normal Nose: Normal Throat: Normal Respiratory: Normal Cardiovascular: Normal : Normal Auscultation: Bowel Sounds: Normal Tenderness: Epigastric Skin: Normal Musculoskeletal: Normal Psychiatric: Normal Mood Description: Calm Affect: Normal Speech Pattern: Clear and Appropriate Laboratory and Diagnostics 06/09/23 05:05 06/09/23 05:05 Labs: Laboratory WBC 9.6 X10^3/uL (3.6-10.0) 06/09/23 05:05 RBC 2.05 X10^6/uL (4.7-6.0) L 06/09/23 05:05 Hgb 7.2 g/dL (13.5-18.0) L 06/09/23 05:05 Hct 21.6 % (42.0-54.0) L 06/09/23 05:05 MCV 105.3 fL (80.0-100.0) H 06/09/23 05:05 MCH 35.3 pg (27.0-34.0) H 06/09/23 05:05 MCHC 33.5 g/dL (33.0-35.0) 06/09/23 05:05 RDW 20.6 % (11.6-16.5) H 06/09/23 05:05 Plt Count 130 X10^3/uL (150.0-450.0) L 06/09/23 05:05 Plt Count Comment Decreased (ADEQUATE) 06/09/23 05:05 MPV 7.3 fL (7.4-11.0) L 06/09/23 05:05 Neut % (Auto) 78.6 % (42.0-75.0) H 06/09/23 05:05 Lymph % (Auto) 11.8 % (21.0-51.0) L 06/09/23 05:05 [place] % (Auto) 8.8 % (0.0-13.0) 06/09/23 05:05 Eos % (Auto) 0.3 % (0.9-2.9) L 06/09/23 05:05 Baso % (Auto) 0.5 % (0.2-1.0) 06/09/23 05:05 Neut # (Auto) 7.5 x10^3/uL (2.2-4.8) H 06/09/23 05:05 Lymph # (Auto) 1.1 X10^3/uL (1.3-2.9) L 06/09/23 05:05 [place] # (Auto) 0.8 x10^3/uL (0.3-0.8) 06/09/23 05:05 Eos # (Auto) 0.0 x10^3/uL (0.0-0.2) 06/09/23 05:05 Baso # (Auto) 0.0 X10^3/uL (0.0-0.1) 06/09/23 05:05 Absolute Nucleated RBC 0.2 /100WBC 06/09/23 05:05 Plt Morphology Comment Normal (NORMAL) 06/09/23 05:05 RBC Morphology Abnormal (NORMAL) 06/09/23 05:05 Anisocytosis 1+ A 06/09/23 05:05 Macrocytosis 1+ A 06/09/23 05:05 Ovalocytes Present 06/05/23 04:56 Stomatocytes Slight A 06/09/23 05:05 Absolute Retic 0.0355 10^6/uL 06/05/23 04:56 Percent Retic 1.88 % (0.8-2.2) 06/05/23 04:56 PT 17.8 SECONDS (11.8-14.3) 06/05/23 04:56 INR Target Range - 06/05/23 04:56 INR 1.50 (0.8-1.3) H 06/05/23 04:56 APTT 41.0 SECONDS (22.9-36.5) H 06/05/23 04:56 PTT Comment - 06/05/23 04:56 Sodium 133 mmol/L (136-145) L 06/09/23 05:05 Corrected Sodium TNP 06/09/23 05:05 Potassium 3.6 mmol/L (3.5-5.1) 06/09/23 05:05 Chloride 97 mmol/L (98-107) L 06/09/23 05:05 Carbon Dioxide 30.6 mmol/L (21-32) 06/09/23 05:05 BUN 8 mg/dL (7-18) 06/09/23 05:05 Creatinine 0.63 mg/dL (0.70-1.30) L 06/09/23 05:05 Est GFR (MDRD) Af Amer > 60 (>60) 06/09/23 05:05 Est GFR (MDRD) Non-Af > 60 (>60) 06/09/23 05:05 Glucose 104 mg/dL (65-99) H 06/09/23 05:05 Calcium 7.8 mg/dL (8.5-10.1) L 06/09/23 05:05 Corrected Calcium 8.7 mg/dL (8.5-10.1) 06/09/23 05:05 Magnesium 2.2 mg/dL (2.0-2.9) 06/08/23 04:23 Iron 278 ug/dL (50-175) H 06/04/23 16:20 Iron 279 ug/dL (50-175) H 06/04/23 16:20 TIBC 323 ug/dL (250-450) 06/04/23 16:20 % Saturation 86.4 % (11.0-46.0) H 06/04/23 16:20 Transferrin 208 mg/dL (202-364) 06/04/23 16:20 Ferritin 1503 ng/mL (26-388) H 06/04/23 16:20 Total Bilirubin 2.10 mg/dL (0.2-1.0) H 06/09/23 05:05 AST 111 Units/L (15-37) H 06/09/23 05:05 ALT 41 Units/L (12-78) 06/09/23 05:05 Alkaline Phosphatase 175 Units/L (46-116) H 06/09/23 05:05 Creatine Kinase 46 Units/L (39-308) 06/04/23 16:20 Troponin I High Sens 4.5 ng/L (4.0-60.0) 06/04/23 16:20 Total Protein 7.1 g/dL (6.4-8.2) 06/09/23 05:05 Albumin 2.9 g/dL (3.4-5.0) L 06/09/23 05:05 Globulin 4.2 g/dL (2.5-4.5) 06/09/23 05:05 Albumin/Globulin Ratio 0.7 Ratio (1.1-2.1) L 06/09/23 05:05 Amylase 36 Units/L (25-115) 06/04/23 16:20 Lipase 66 Units/L (16-77) 06/04/23 16:20 Vitamin B12 475 pg/mL (193-986) 06/05/23 04:56 Folate 2.4 ng/mL (>8.6) L 06/05/23 04:56 Specimen Type Catherized urine 06/09/23 09:45 Urine Color [place] (YELLOW) 06/09/23 09:45 Urine Appearance Clear (CLEAR) 06/09/23 09:45 Urine pH 6.0 (5.0 - 8.0) 06/09/23 09:45 Ur Specific [place] 1.025 (1.000-1.030) 06/09/23 09:45 Urine Protein 2+ (NEGATIVE) 06/09/23 09:45 Urine Glucose (UA) Negative (NEGATIVE) 06/09/23 09:45 Urine Ketones 2+ (NEGATIVE) 06/09/23 09:45 Urine Blood Negative (NEGATIVE) 06/09/23 09:45 Urine Nitrite Negative (NEGATIVE) 06/09/23 09:45 Urine Bilirubin 1+ (NEGATIVE) 06/09/23 09:45 Urine Urobilinogen 4+ (NORMAL) 06/09/23 09:45 Ur Leukocyte Esterase Negative (NEGATIVE) 06/09/23 09:45 Urine RBC 0-2 /HPF (0-3) 06/09/23 09:45 Urine WBC 0-2 /HPF (0-5) 06/09/23 09:45 Ur Squamous Epith Cells Rare /HPF (NEGATIVE) 06/09/23 09:45 Urine Bacteria Trace /HPF (NEGATIVE) 06/09/23 09:45 Urine Mucus Many /HPF (NEGATIVE) 06/09/23 09:45 Ur Culture Indicated? No/not indicated 06/09/23 09:45 Urine Opiates Screen Positive (NEG=<300) 06/05/23 21:11 Urine Methadone Screen Negative (NEG=<300) 06/05/23 21:11 Ur Barbiturates Screen Negative (NEG=<200) 06/05/23 21:11 Ur Phencyclidine Scrn Negative (NEG=<25) 06/05/23 21:11 Ur Amphetamines Screen Negative (NEG=<1000) 06/05/23 21:11 U Benzodiazepines Scrn Negative (NEG=<200) 06/05/23 21:11 Urine Cocaine Screen Negative (NEG=<300) 06/05/23 21:11 U Marijuana (THC) Screen Negative (NEG=<50) 06/05/23 21:11 Ethyl Alcohol mg/dL < 3 mg/dL (0-19.9) 06/05/23 04:56 Blood Type A NEGATIVE 06/04/23 17:48 Blood Type A NEGATIVE 06/04/23 17:48 Antibody Screen Negative 06/04/23 17:48 Crossmatch See Detail 06/04/23 17:48 Plan (1) Acute hypokalemia: Status: Acute Plan: Potassium replacement protocol. (2) Hepatosplenomegaly: Status: Acute Plan: Follow-up consult with gastroenterology. (3) Hepatic steatosis: Status: Acute Plan: Follow-up gastroenterology consultation. (4) Pancreatic atrophy: Status: Acute Plan: Follow-up with gastroenterology consultation. (5) Diffuse abdominal pain: Status: Acute Plan: Monitor for improvement and pain control as needed. (6) Alcohol use disorder: Status: Acute Plan: Alcohol detox protocol. Counseled patient on alcohol cessation. (7) Folate deficiency: Status: Acute Plan: Continue folate 1 mg p.o. daily. (8) Elevated ferritin level: Status: Acute Plan: Discussed with gastroenterology to see if patient needs a workup for hemochromatosis or if they think that the high ferritin and iron levels are secondary to chronic alcohol ingestion. (9) Macrocytic anemia: Status: Acute Plan: Transfused 2 units of packed red blood cells today. Continue folate supplementation since the patient had a low folate level at 2.4.
[2023-06-09] MEDS: THIAMINE HCL INJ IM SCH (11:28)
[2023-06-09] MEDS ORDERED: K-DUR TAB 20 MEQ PO ONE (12:00)
[2023-06-09] MEDS: VISTARIL PO PRN (20:14)
[2023-06-10] MEDS: VALIUM INJ IVP PRN
[2023-06-10] MEDS: LIBRIUM PO PRN ×2 (03:13→20:42)
[2023-06-10] MEDS: MORPHINE SULFATE INJ 4 MG IVP PRN (03:14)
[2023-06-10] MEDS: NS 1,000 ML IV 1,000 ML with MAGNESIUM SULFATE 50% INJ VIAL 1 G, MVI INJ (ADULT) 10 ML IV SCH ×6 (05:09→09:50)
[2023-06-10 05:20] LABS: BASOPHILS % (AUTO) 0.5 % (0.2-1.0); EOSINOPHILS % (AUTO) 0.5 % (0.9-2.9); HEMATOCRIT 22.5 % (42.0-54.0); HEMOGLOBIN 7.4 g/dL (13.5-18.0); LYMPHOCYTES # (AUTO) 1.1 X10^3/uL (1.3-2.9); LYMPHOCYTES % (AUTO) 14.8 % (21.0-51.0); MEAN CORPUSCULAR HEMOGLOBIN 35.2 pg (27.0-34.0); MEAN CORPUSCULAR HGB CONC 33.1 g/dL (33.0-35.0); MEAN CORPUSCULAR VOLUME 106.3 fL (80.0-100.0); MEAN PLATELET VOLUME 7.3 fL (7.4-11.0); MONOCYTES # (AUTO) 0.6 x10^3/uL (0.3-0.8); MONOCYTES % (AUTO) 7.7 % (0.0-13.0); NEUTROPHILS # (AUTO) 5.9 x10^3/uL (2.2-4.8); NEUTROPHILS % (AUTO) 76.5 % (42.0-75.0); PLATELET COUNT 140 X10^3/uL (150.0-450.0); RED BLOOD COUNT 2.11 X10^6/uL (4.7-6.0); RED CELL DISTRIBUTION WIDTH 20.3 % (11.6-16.5); WHITE BLOOD COUNT 7.6 X10^3/uL (3.6-10.0)
[2023-06-10 05:33] LABS: ALANINE AMINOTRANSFERASE 40 Units/L (12-78); ALBUMIN 2.8 g/dL (3.4-5.0); ALKALINE PHOSPHATASE 176 Units/L (46-116); ASPARTATE AMINO TRANSFERASE 96 Units/L (15-37); BLOOD UREA NITROGEN 7 mg/dL (7-18); CALCIUM 7.7 mg/dL (8.5-10.1); CARBON DIOXIDE 30.3 mmol/L (21-32); CHLORIDE 97 mmol/L (98-107); COR CA(FOR HYPOALB) 8.7 mg/dL (8.5-10.1); CREATININE 0.66 mg/dL (0.70-1.30); GLUCOSE 100 mg/dL (65-99); POTASSIUM 3.4 mmol/L (3.5-5.1); SODIUM 133 mmol/L (136-145); TOTAL PROTEIN 7.1 g/dL (6.4-8.2); eGFR NON BLACK RACES > 60 (>60)
[2023-06-10 05:50] LABS: ANISOCYTOSIS 1+; PLATELET MORPHOLOGY COMMENT NORMAL (NORMAL)
[2023-06-10 05:51] LABS: STOMATOCYTES SLIGHT; TEAR DROP CELLS SLIGHT
[2023-06-10] MEDS ORDERED: CONSULT PHARMACY - POTASSIUM & MAGNESIUM XX SCH (06:00)
[2023-06-10] MEDS ORDERED: K-DUR TAB 20 MEQ PO SCH (09:00)
[2023-06-10] MEDS: PHENOBARBITAL TAB 30 MG (32.4MG) PO SCH (09:29)
[2023-06-10] MEDS: FOLTX PO SCH (09:29)
[2023-06-10] MEDS: THIAMINE HCL INJ IM SCH (09:30)
--- NOTE | 2023-06-10 10:19 | PCM.PROG ---
Progress Note Progress Note for Day of Date of Exam: 06/10/23 Subjective Subjective: Pt is a 48-year-old male admitted for alcohol withdrawal and electrolyte abnormalities. This morning he is resting in bed comfortably. He appears to have significantly improved in withdrawal symptoms. Labs: WBC 7.6, hemoglobin 7.4, platelets 140, sodium 133, potassium 3.4, creatinine 0.66, glucose 100. Patient is currently on alcohol detox protocol. Replete electrolytes per protocol. Pt appears to get confused after receiving morphine. Will discontinue morphine and phenobarbital and continue with benzodiazepine for symptoms. Otherwise continue current treatment plan. Continue closely monitor and follow-up labs. Past Medical Family Social History Allergies: Allergies shellfish derived Allergy (Verified 06/27/19 23:54) Review of Systems ROS changes noted: see HPI Vital Signs and I&O's Vital Signs: Vital Signs Temperature 97.8 F Temperature 97.8 F Pulse Rate 101 Pulse Rate 99 Respiratory Rate 20 Respiratory Rate 14 Respiratory Rate 16 Respiratory Rate 20 Blood Pressure 157/90 Blood Pressure 153/95 O2 Sat by Pulse Oximetry 96 O2 Sat by Pulse Oximetry 97 Intake and Output: Intake & Output 06/07/23 06/08/23 06/09/23 06/10/23 23:59 23:59 23:59 23:59 Intake Total 2704 / 2704 792 / 792 872 / 872 600 / 600 Output Total 1150 / 1150 300 / 300 1775 / 1775 225 / 225 Balance 1554 / 1554 492 / 492 -903 / -903 375 / 375 Physical Exam Oriented: Normal Eyes: Normal Ear: Normal Nose: Normal Throat: Normal Respiratory: Normal Cardiovascular: Normal : Normal Auscultation: Bowel Sounds: Normal Tenderness: Normal Skin: Normal Musculoskeletal: Normal Psychiatric: Normal Mood Description: Calm Affect: Normal Speech Pattern: Clear and Appropriate Laboratory and Diagnostics 06/10/23 04:30 06/10/23 04:30 Labs: Laboratory WBC 7.6 X10^3/uL (3.6-10.0) 06/10/23 04:30 RBC 2.11 X10^6/uL (4.7-6.0) L 06/10/23 04:30 Hgb 7.4 g/dL (13.5-18.0) L 06/10/23 04:30 Hct 22.5 % (42.0-54.0) L 06/10/23 04:30 MCV 106.3 fL (80.0-100.0) H 06/10/23 04:30 MCH 35.2 pg (27.0-34.0) H 06/10/23 04:30 MCHC 33.1 g/dL (33.0-35.0) 06/10/23 04:30 RDW 20.3 % (11.6-16.5) H 06/10/23 04:30 Plt Count 140 X10^3/uL (150.0-450.0) L 06/10/23 04:30 Plt Count Comment Decreased (ADEQUATE) 06/10/23 04:30 MPV 7.3 fL (7.4-11.0) L 06/10/23 04:30 Neut % (Auto) 76.5 % (42.0-75.0) H 06/10/23 04:30 Lymph % (Auto) 14.8 % (21.0-51.0) L 06/10/23 04:30 [place] % (Auto) 7.7 % (0.0-13.0) 06/10/23 04:30 Eos % (Auto) 0.5 % (0.9-2.9) L 06/10/23 04:30 Baso % (Auto) 0.5 % (0.2-1.0) 06/10/23 04:30 Neut # (Auto) 5.9 x10^3/uL (2.2-4.8) H 06/10/23 04:30 Lymph # (Auto) 1.1 X10^3/uL (1.3-2.9) L 06/10/23 04:30 [place] # (Auto) 0.6 x10^3/uL (0.3-0.8) 06/10/23 04:30 Eos # (Auto) 0.0 x10^3/uL (0.0-0.2) 06/10/23 04:30 Baso # (Auto) 0.0 X10^3/uL (0.0-0.1) 06/10/23 04:30 Absolute Nucleated RBC 0.2 /100WBC 06/10/23 04:30 Plt Morphology Comment Normal (NORMAL) 06/10/23 04:30 RBC Morphology Abnormal (NORMAL) 06/10/23 04:30 Anisocytosis 1+ A 06/10/23 04:30 Macrocytosis 1+ A 06/10/23 04:30 Tear Drop Cells Slight 06/10/23 04:30 Ovalocytes Present 06/05/23 04:56 Stomatocytes Slight A 06/10/23 04:30 Absolute Retic 0.0355 10^6/uL 06/05/23 04:56 Percent Retic 1.88 % (0.8-2.2) 06/05/23 04:56 PT 17.8 SECONDS (11.8-14.3) 06/05/23 04:56 INR Target Range - 06/05/23 04:56 INR 1.50 (0.8-1.3) H 06/05/23 04:56 APTT 41.0 SECONDS (22.9-36.5) H 06/05/23 04:56 PTT Comment - 06/05/23 04:56 Sodium 133 mmol/L (136-145) L 06/10/23 04:30 Corrected Sodium TNP 06/10/23 04:30 Potassium 3.4 mmol/L (3.5-5.1) L 06/10/23 04:30 Chloride 97 mmol/L (98-107) L 06/10/23 04:30 Carbon Dioxide 30.3 mmol/L (21-32) 06/10/23 04:30 BUN 7 mg/dL (7-18) 06/10/23 04:30 Creatinine 0.66 mg/dL (0.70-1.30) L 06/10/23 04:30 Est GFR (MDRD) Af Amer > 60 (>60) 06/10/23 04:30 Est GFR (MDRD) Non-Af > 60 (>60) 06/10/23 04:30 Glucose 100 mg/dL (65-99) H 06/10/23 04:30 Calcium 7.7 mg/dL (8.5-10.1) L 06/10/23 04:30 Corrected Calcium 8.7 mg/dL (8.5-10.1) 06/10/23 04:30 Magnesium 2.1 mg/dL (2.0-2.9) 06/10/23 04:30 Iron 278 ug/dL (50-175) H 06/04/23 16:20 Iron 279 ug/dL (50-175) H 06/04/23 16:20 TIBC 323 ug/dL (250-450) 06/04/23 16:20 % Saturation 86.4 % (11.0-46.0) H 06/04/23 16:20 Transferrin 208 mg/dL (202-364) 06/04/23 16:20 Ferritin 1503 ng/mL (26-388) H 06/04/23 16:20 Total Bilirubin 1.80 mg/dL (0.2-1.0) H 06/10/23 04:30 AST 96 Units/L (15-37) H 06/10/23 04:30 ALT 40 Units/L (12-78) 06/10/23 04:30 Alkaline Phosphatase 176 Units/L (46-116) H 06/10/23 04:30 Creatine Kinase 46 Units/L (39-308) 06/04/23 16:20 Troponin I High Sens 4.5 ng/L (4.0-60.0) 06/04/23 16:20 Total Protein 7.1 g/dL (6.4-8.2) 06/10/23 04:30 Albumin 2.8 g/dL (3.4-5.0) L 06/10/23 04:30 Globulin 4.3 g/dL (2.5-4.5) 06/10/23 04:30 Albumin/Globulin Ratio 0.7 Ratio (1.1-2.1) L 06/10/23 04:30 Amylase 36 Units/L (25-115) 06/04/23 16:20 Lipase 66 Units/L (16-77) 06/04/23 16:20 Vitamin B12 475 pg/mL (193-986) 06/05/23 04:56 Folate 2.4 ng/mL (>8.6) L 06/05/23 04:56 Specimen Type Catherized urine 06/09/23 09:45 Urine Color [place] (YELLOW) 06/09/23 09:45 Urine Appearance Clear (CLEAR) 06/09/23 09:45 Urine pH 6.0 (5.0 - 8.0) 06/09/23 09:45 Ur Specific [place] 1.025 (1.000-1.030) 06/09/23 09:45 Urine Protein 2+ (NEGATIVE) 06/09/23 09:45 Urine Glucose (UA) Negative (NEGATIVE) 06/09/23 09:45 Urine Ketones 2+ (NEGATIVE) 06/09/23 09:45 Urine Blood Negative (NEGATIVE) 06/09/23 09:45 Urine Nitrite Negative (NEGATIVE) 06/09/23 09:45 Urine Bilirubin 1+ (NEGATIVE) 06/09/23 09:45 Urine Urobilinogen 4+ (NORMAL) 06/09/23 09:45 Ur Leukocyte Esterase Negative (NEGATIVE) 06/09/23 09:45 Urine RBC 0-2 /HPF (0-3) 06/09/23 09:45 Urine WBC 0-2 /HPF (0-5) 06/09/23 09:45 Ur Squamous Epith Cells Rare /HPF (NEGATIVE) 06/09/23 09:45 Urine Bacteria Trace /HPF (NEGATIVE) 06/09/23 09:45 Urine Mucus Many /HPF (NEGATIVE) 06/09/23 09:45 Ur Culture Indicated? No/not indicated 06/09/23 09:45 Urine Opiates Screen Positive (NEG=<300) 06/05/23 21:11 Urine Methadone Screen Negative (NEG=<300) 06/05/23 21:11 Ur Barbiturates Screen Negative (NEG=<200) 06/05/23 21:11 Ur Phencyclidine Scrn Negative (NEG=<25) 06/05/23 21:11 Ur Amphetamines Screen Negative (NEG=<1000) 06/05/23 21:11 U Benzodiazepines Scrn Negative (NEG=<200) 06/05/23 21:11 Urine Cocaine Screen Negative (NEG=<300) 06/05/23 21:11 U Marijuana (THC) Screen Negative (NEG=<50) 06/05/23 21:11 Ethyl Alcohol mg/dL < 3 mg/dL (0-19.9) 06/05/23 04:56 Blood Type Cancelled 06/09/23 13:36 Antibody Screen Cancelled 06/09/23 13:36 Crossmatch See Detail 06/09/23 13:36 Plan (1) Acute hypokalemia: Status: Acute Plan: Potassium replacement protocol. (2) Hepatosplenomegaly: Status: Acute Plan: Follow-up consult with gastroenterology. (3) Hepatic steatosis: Status: Acute Plan: Follow-up gastroenterology consultation. (4) Pancreatic atrophy: Status: Acute Plan: Follow-up with gastroenterology consultation. (5) Diffuse abdominal pain: Status: Acute Plan: Monitor for improvement and pain control as needed. (6) Alcohol use disorder: Status: Acute Plan: Alcohol detox protocol. Counseled patient on alcohol cessation. (7) Folate deficiency: Status: Acute Plan: Continue folate 1 mg p.o. daily. (8) Elevated ferritin level: Status: Acute Plan: Discussed with gastroenterology to see if patient needs a workup for hemochromatosis or if they think that the high ferritin and iron levels are secondary to chronic alcohol ingestion. (9) Macrocytic anemia: Status: Acute Plan: Transfused 2 units of packed red blood cells today. Continue folate supplementation since the patient had a low folate level at 2.4.
[2023-06-10] MEDS: NORCO 5/325 MG TAB PO PRN (15:51)
[2023-06-10] MEDS: PHENOBARBITAL SODIUM INJ 65 MG VIAL IM PRN (19:44)
[2023-06-10] MEDS: VISTARIL PO PRN (20:42)
[2023-06-10] MEDS ORDERED: HALDOL INJ IM ONE (21:11)
[2023-06-11 05:23] LABS: BASOPHILS % (AUTO) 0.4 % (0.2-1.0); EOSINOPHILS % (AUTO) 0.5 % (0.9-2.9); HEMOGLOBIN 7.5 g/dL (13.5-18.0); LYMPHOCYTES # (AUTO) 0.8 X10^3/uL (1.3-2.9); LYMPHOCYTES % (AUTO) 11.5 % (21.0-51.0); MEAN CORPUSCULAR HEMOGLOBIN 34.3 pg (27.0-34.0); MEAN CORPUSCULAR HGB CONC 32.5 g/dL (33.0-35.0); MEAN CORPUSCULAR VOLUME 105.5 fL (80.0-100.0); MEAN PLATELET VOLUME 7.3 fL (7.4-11.0); MONOCYTES # (AUTO) 0.5 x10^3/uL (0.3-0.8); MONOCYTES % (AUTO) 6.8 % (0.0-13.0); NEUTROPHILS # (AUTO) 5.6 x10^3/uL (2.2-4.8); NEUTROPHILS % (AUTO) 80.8 % (42.0-75.0); PLATELET COUNT 160 X10^3/uL (150.0-450.0); RED BLOOD COUNT 2.18 X10^6/uL (4.7-6.0); RED CELL DISTRIBUTION WIDTH 19.5 % (11.6-16.5); WHITE BLOOD COUNT 6.9 X10^3/uL (3.6-10.0)
[2023-06-11 05:29] LABS: PLATELET MORPHOLOGY COMMENT NORMAL (NORMAL)
[2023-06-11 05:30] LABS: ANISOCYTOSIS SLIGHT; STOMATOCYTES SLIGHT
[2023-06-11 05:36] LABS: ALANINE AMINOTRANSFERASE 38 Units/L (12-78); ALBUMIN 2.7 g/dL (3.4-5.0); ALKALINE PHOSPHATASE 177 Units/L (46-116); ASPARTATE AMINO TRANSFERASE 88 Units/L (15-37); BLOOD UREA NITROGEN 6 mg/dL (7-18); CALCIUM 8.1 mg/dL (8.5-10.1); CARBON DIOXIDE 27.6 mmol/L (21-32); CHLORIDE 99 mmol/L (98-107); COR CA(FOR HYPOALB) 9.1 mg/dL (8.5-10.1); CREATININE 0.55 mg/dL (0.70-1.30); GLUCOSE 98 mg/dL (65-99); POTASSIUM 3.6 mmol/L (3.5-5.1); SODIUM 135 mmol/L (136-145); TOTAL PROTEIN 6.8 g/dL (6.4-8.2); eGFR NON BLACK RACES > 60 (>60)
[2023-06-11] MEDS ORDERED: CONSULT PHARMACY - POTASSIUM & MAGNESIUM XX SCH (08:00)
[2023-06-11] MEDS ORDERED: K-DUR TAB 20 MEQ PO ONE (09:00)
[2023-06-11] MEDS: PHENOBARBITAL TAB 15 MG (16.2MG) PO SCH ×4 (10:26→20:30)
[2023-06-11] MEDS: FOLTX PO SCH (10:26)
[2023-06-11] MEDS: NS 1,000 ML IV 1,000 ML with MAGNESIUM SULFATE 50% INJ VIAL 1 G, MVI INJ (ADULT) 10 ML IV SCH ×3 (13:00)
[2023-06-11] MEDS: MILK OF MAGNESIA PO SCH ×2 (13:06→20:30)
[2023-06-11] MEDS: COLACE CAP 100 MG PO SCH (20:29)
[2023-06-12 04:57] LABS: BASOPHILS % (AUTO) 0.7 % (0.2-1.0); EOSINOPHILS % (AUTO) 0.7 % (0.9-2.9); HEMATOCRIT 22.9 % (42.0-54.0); HEMOGLOBIN 7.6 g/dL (13.5-18.0); MEAN CORPUSCULAR HEMOGLOBIN 34.4 pg (27.0-34.0); MEAN CORPUSCULAR VOLUME 104.1 fL (80.0-100.0); MEAN PLATELET VOLUME 7.1 fL (7.4-11.0); MONOCYTES # (AUTO) 0.5 x10^3/uL (0.3-0.8); NEUTROPHILS # (AUTO) 4.2 x10^3/uL (2.2-4.8); NEUTROPHILS % (AUTO) 72.6 % (42.0-75.0); PLATELET COUNT 178 X10^3/uL (150.0-450.0); RED CELL DISTRIBUTION WIDTH 18.9 % (11.6-16.5); WHITE BLOOD COUNT 5.7 X10^3/uL (3.6-10.0)
[2023-06-12 05:07] LABS: ALANINE AMINOTRANSFERASE 35 Units/L (12-78); ALBUMIN 2.6 g/dL (3.4-5.0); ALKALINE PHOSPHATASE 183 Units/L (46-116); ASPARTATE AMINO TRANSFERASE 68 Units/L (15-37); BLOOD UREA NITROGEN 3 mg/dL (7-18); CALCIUM 8.1 mg/dL (8.5-10.1); CARBON DIOXIDE 29.1 mmol/L (21-32); CHLORIDE 100 mmol/L (98-107); COR CA(FOR HYPOALB) 9.2 mg/dL (8.5-10.1); CREATININE 0.59 mg/dL (0.70-1.30); GLUCOSE 100 mg/dL (65-99); POTASSIUM 3.5 mmol/L (3.5-5.1); SODIUM 136 mmol/L (136-145); TOTAL PROTEIN 6.8 g/dL (6.4-8.2); eGFR NON BLACK RACES > 60 (>60)
[2023-06-12] MEDS ORDERED: BUTT CREAM (COMPOUND) TOP PRN (06:00)
[2023-06-12] MEDS ORDERED: CONSULT PHARMACY - POTASSIUM & MAGNESIUM XX SCH (06:00)
[2023-06-12 08:42] LABS: INR 1.11 (0.8-1.3)
[2023-06-12] MEDS ORDERED: MILK OF MAGNESIA PO PRN (08:44)
[2023-06-12] MEDS ORDERED: K-DUR TAB 20 MEQ PO SCH (09:00)
[2023-06-12] MEDS ORDERED: ZYMAXID EACHEYE SCH (09:00)
[2023-06-12] MEDS: PHENOBARBITAL TAB 15 MG (16.2MG) PO SCH ×4 (09:19→21:16)
[2023-06-12] MEDS: FOLTX PO SCH (09:19)
[2023-06-12] MEDS: LYRICA CAP 75 mg PO SCH ×2 (09:19→21:16)
[2023-06-12] MEDS: ZYMAXID EACHEYE SCH ×2 (09:31→21:00)
[2023-06-12] MEDS: NORCO 5/325 MG TAB PO PRN ×2 (11:35→21:16)
[2023-06-12] MEDS: LOPRESSOR TAB 25 MG PO SCH ×2 (17:53→21:15)
[2023-06-12] MEDS: COLACE CAP 100 MG PO SCH (21:14)
--- NOTE | 2023-06-12 21:22 | PCM.PROG ---
Progress Note Progress Note for Day of Date of Exam: 06/11/23 Subjective Subjective: Pt is a 48-year-old male admitted for alcohol withdrawal and electrolyte abnormalities. This morning he is resting in bed comfortably. I was not able to arouse him this morning as he may be oversedated at this point. I will stop his Valium today and we will continue weaning him down on his phenobarbital. I am also going to stop morphine at this time as he does not need it. His hemoglobin stable at 7.5 and his total bilirubin continues to trend down. He is rehydrated and I see that his MCV level is also coming down. 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 Past Medical Family Social History Allergies: Allergies shellfish derived Allergy (Verified 06/27/19 23:54) Review of Systems ROS: Changes notes (describe) (Insomnia) Vital Signs and I&O's Vital Signs: Vital Signs Respiratory Rate 20 Respiratory Rate 20 Blood Pressure 159/96 Intake and Output: Intake & Output 06/10/23 06/11/23 06/12/23 06/13/23 11:59 11:59 11:59 11:59 Intake Total 1472 / 1472 545 / 545 1561 / 1561 1260 / 1260 Output Total 1450 / 1450 1300 / 1300 800 / 800 Balance -755 / -755 761 / 761 1260 / 1260 Physical Exam Oriented: Normal Eyes: Normal Ear: Normal Nose: Normal Throat: Normal Respiratory: Normal Cardiovascular: Normal : Normal Auscultation: Bowel Sounds: Normal Tenderness: Normal Skin: Normal Musculoskeletal: Normal Psychiatric: Normal Mood Description: Calm Affect: Normal Speech Pattern: Unclear and Delayed Laboratory and Diagnostics 06/12/23 04:25 06/12/23 04:25 Labs: Laboratory WBC 5.7 X10^3/uL (3.6-10.0) 06/12/23 04:25 RBC 2.20 X10^6/uL (4.7-6.0) L 06/12/23 04:25 Hgb 7.6 g/dL (13.5-18.0) L 06/12/23 04:25 Hct 22.9 % (42.0-54.0) L 06/12/23 04:25 MCV 104.1 fL (80.0-100.0) H 06/12/23 04:25 MCH 34.4 pg (27.0-34.0) H 06/12/23 04:25 MCHC 33.0 g/dL (33.0-35.0) 06/12/23 04:25 RDW 18.9 % (11.6-16.5) H 06/12/23 04:25 Plt Count 178 X10^3/uL (150.0-450.0) 06/12/23 04:25 Plt Count Comment Adequate (ADEQUATE) 06/11/23 04:39 MPV 7.1 fL (7.4-11.0) L 06/12/23 04:25 Neut % (Auto) 72.6 % (42.0-75.0) 06/12/23 04:25 Lymph % (Auto) 18.0 % (21.0-51.0) L 06/12/23 04:25 [place] % (Auto) 8.0 % (0.0-13.0) 06/12/23 04:25 Eos % (Auto) 0.7 % (0.9-2.9) L 06/12/23 04:25 Baso % (Auto) 0.7 % (0.2-1.0) 06/12/23 04:25 Neut # (Auto) 4.2 x10^3/uL (2.2-4.8) 06/12/23 04:25 Lymph # (Auto) 1.0 X10^3/uL (1.3-2.9) L 06/12/23 04:25 [place] # (Auto) 0.5 x10^3/uL (0.3-0.8) 06/12/23 04:25 Eos # (Auto) 0.0 x10^3/uL (0.0-0.2) 06/12/23 04:25 Baso # (Auto) 0.0 X10^3/uL (0.0-0.1) 06/12/23 04:25 Absolute Nucleated RBC 0.1 /100WBC 06/12/23 04:25 Plt Morphology Comment Normal (NORMAL) 06/11/23 04:39 RBC Morphology Abnormal (NORMAL) 06/11/23 04:39 Anisocytosis Slight A 06/11/23 04:39 Macrocytosis 1+ A 06/11/23 04:39 Tear Drop Cells Slight 06/10/23 04:30 Ovalocytes Present 06/05/23 04:56 Stomatocytes Slight A 06/11/23 04:39 Absolute Retic 0.0355 10^6/uL 06/05/23 04:56 Percent Retic 1.88 % (0.8-2.2) 06/05/23 04:56 PT 14.1 SECONDS (11.8-14.3) 06/12/23 04:25 INR Target Range - 06/12/23 04:25 INR 1.11 (0.8-1.3) 06/12/23 04:25 APTT 41.0 SECONDS (22.9-36.5) H 06/05/23 04:56 PTT Comment - 06/05/23 04:56 Sodium 136 mmol/L (136-145) 06/12/23 04:25 Corrected Sodium TNP 06/12/23 04:25 Potassium 3.5 mmol/L (3.5-5.1) 06/12/23 04:25 Chloride 100 mmol/L (98-107) 06/12/23 04:25 Carbon Dioxide 29.1 mmol/L (21-32) 06/12/23 04:25 BUN 3 mg/dL (7-18) L 06/12/23 04:25 Creatinine 0.59 mg/dL (0.70-1.30) L 06/12/23 04:25 Est GFR (MDRD) Af Amer > 60 (>60) 06/12/23 04:25 Est GFR (MDRD) Non-Af > 60 (>60) 06/12/23 04:25 Glucose 100 mg/dL (65-99) H 06/12/23 04:25 Calcium 8.1 mg/dL (8.5-10.1) L 06/12/23 04:25 Corrected Calcium 9.2 mg/dL (8.5-10.1) 06/12/23 04:25 Magnesium 2.1 mg/dL (2.0-2.9) 06/12/23 04:35 Iron 278 ug/dL (50-175) H 06/04/23 16:20 Iron 279 ug/dL (50-175) H 06/04/23 16:20 TIBC 323 ug/dL (250-450) 06/04/23 16:20 % Saturation 86.4 % (11.0-46.0) H 06/04/23 16:20 Transferrin 208 mg/dL (202-364) 06/04/23 16:20 Ferritin 1503 ng/mL (26-388) H 06/04/23 16:20 Total Bilirubin 1.40 mg/dL (0.2-1.0) H 06/12/23 04:25 AST 68 Units/L (15-37) H 06/12/23 04:25 ALT 35 Units/L (12-78) 06/12/23 04:25 Alkaline Phosphatase 183 Units/L (46-116) H 06/12/23 04:25 Creatine Kinase 46 Units/L (39-308) 06/04/23 16:20 Troponin I High Sens 4.5 ng/L (4.0-60.0) 06/04/23 16:20 Total Protein 6.8 g/dL (6.4-8.2) 06/12/23 04:25 Albumin 2.6 g/dL (3.4-5.0) L 06/12/23 04:25 Globulin 4.2 g/dL (2.5-4.5) 06/12/23 04:25 Albumin/Globulin Ratio 0.6 Ratio (1.1-2.1) L 06/12/23 04:25 Amylase 36 Units/L (25-115) 06/04/23 16:20 Lipase 66 Units/L (16-77) 06/04/23 16:20 Vitamin B12 475 pg/mL (193-986) 06/05/23 04:56 Folate 2.4 ng/mL (>8.6) L 06/05/23 04:56 Specimen Type Catherized urine 06/09/23 09:45 Urine Color [place] (YELLOW) 06/09/23 09:45 Urine Appearance Clear (CLEAR) 06/09/23 09:45 Urine pH 6.0 (5.0 - 8.0) 06/09/23 09:45 Ur Specific [place] 1.025 (1.000-1.030) 06/09/23 09:45 Urine Protein 2+ (NEGATIVE) 06/09/23 09:45 Urine Glucose (UA) Negative (NEGATIVE) 06/09/23 09:45 Urine Ketones 2+ (NEGATIVE) 06/09/23 09:45 Urine Blood Negative (NEGATIVE) 06/09/23 09:45 Urine Nitrite Negative (NEGATIVE) 06/09/23 09:45 Urine Bilirubin 1+ (NEGATIVE) 06/09/23 09:45 Urine Urobilinogen 4+ (NORMAL) 06/09/23 09:45 Ur Leukocyte Esterase Negative (NEGATIVE) 06/09/23 09:45 Urine RBC 0-2 /HPF (0-3) 06/09/23 09:45 Urine WBC 0-2 /HPF (0-5) 06/09/23 09:45 Ur Squamous Epith Cells Rare /HPF (NEGATIVE) 06/09/23 09:45 Urine Bacteria Trace /HPF (NEGATIVE) 06/09/23 09:45 Urine Mucus Many /HPF (NEGATIVE) 06/09/23 09:45 Ur Culture Indicated? No/not indicated 06/09/23 09:45 Stl Occult Blood (IFOB) Negative (NEGATIVE) 06/11/23 19:52 Urine Opiates Screen Positive (NEG=<300) 06/05/23 21:11 Urine Methadone Screen Negative (NEG=<300) 06/05/23 21:11 Ur Barbiturates Screen Negative (NEG=<200) 06/05/23 21:11 Ur Phencyclidine Scrn Negative (NEG=<25) 06/05/23 21:11 Ur Amphetamines Screen Negative (NEG=<1000) 06/05/23 21:11 U Benzodiazepines Scrn Negative (NEG=<200) 06/05/23 21:11 Urine Cocaine Screen Negative (NEG=<300) 06/05/23 21:11 U Marijuana (THC) Screen Negative (NEG=<50) 06/05/23 21:11 Ethyl Alcohol mg/dL < 3 mg/dL (0-19.9) 06/05/23 04:56 Blood Type Cancelled 06/09/23 13:36 Antibody Screen Cancelled 06/09/23 13:36 Crossmatch See Detail 06/09/23 13:36 Plan (1) Acute hypokalemia: Status: Resolved Plan: Potassium replacement protocol. (2) Hepatosplenomegaly: Status: Acute Plan: Follow-up consult with gastroenterology. (3) Hepatic steatosis: Status: Acute Plan: Follow-up gastroenterology consultation. (4) Pancreatic atrophy: Status: Acute Plan: Follow-up with gastroenterology consultation. (5) Diffuse abdominal pain: Status: Acute Plan: Monitor for improvement and pain control as needed. (6) Alcohol use disorder: Status: Acute Plan: Alcohol detox protocol. Counseled patient on alcohol cessation. (7) Folate deficiency: Status: Acute Plan: Continue folate 1 mg p.o. daily. (8) Elevated ferritin level: Status: Acute Plan: Discussed with gastroenterology to see if patient needs a workup for hemochromatosis or if they think that the high ferritin and iron levels are secondary to chronic alcohol ingestion. (9) Macrocytic anemia: Status: Acute Plan: Transfused 2 units of packed red blood cells today. Continue folate supplementation since the patient had a low folate level at 2.4.
--- NOTE | 2023-06-12 21:29 | PCM.PROG ---
Progress Note Progress Note for Day of Date of Exam: 06/12/23 Subjective Subjective: Pt is a 48-year-old male admitted for alcohol withdrawal and electrolyte abnormalities. This morning he is resting in bed comfortably. He is more arousable and not moving his extremities around is much as he was yesterday morning. The patient's Hemoccult came back and was negative for blo od. Will recheck the INR this morning and it had come down and was normal at 1.1. Patient's hemoglobin is up to 7.6 this morning and by this afternoon his blood pressure started trending up so we started him on metoprolol tartrate [address] twice daily[address] Dr[address] Muhammad, gastroenterology stated that he plans on doing an EGD on morning which is 2 days from now and will discuss the patient's prognosis with him and his brother. The patient has seen Dr. Muhammad previously and reports that he recommended he go on a liver transplant list. In the meantime we will continue to wean him down off of his phenobarbital as he seems to be getting over alcoholic DTs. He is resting better since I started Seroquel last night at 100 mg according to his nurses this morning. Past Medical Family Social History Allergies: Allergies shellfish derived Allergy (Verified 06/27/19 23:54) Review of Systems ROS: Changes notes (describe) (Insomnia) Vital Signs and I&O's Vital Signs: Vital Signs Respiratory Rate 20 Blood Pressure 159/96 Intake and Output: Intake & Output 06/10/23 06/11/23 06/12/23 06/13/23 11:59 11:59 11:59 11:59 Intake Total 1472 / 1472 545 / 545 1561 / 1561 1260 / 1260 Output Total 1450 / 1450 1300 / 1300 800 / 800 Balance -755 / -755 761 / 761 1260 / 1260 Physical Exam Oriented: Normal Eyes: Normal Ear: Normal Nose: Normal Throat: Normal Respiratory: Normal Cardiovascular: Normal : Normal Auscultation: Bowel Sounds: Normal Tenderness: Normal Skin: Normal Musculoskeletal: Normal Psychiatric: Normal Mood Description: Calm Affect: Normal Speech Pattern: Unclear and Delayed Laboratory and Diagnostics 06/12/23 04:25 06/12/23 04:25 Labs: Laboratory WBC 5.7 X10^3/uL (3.6-10.0) 06/12/23 04:25 RBC 2.20 X10^6/uL (4.7-6.0) L 06/12/23 04:25 Hgb 7.6 g/dL (13.5-18.0) L 06/12/23 04:25 Hct 22.9 % (42.0-54.0) L 06/12/23 04:25 MCV 104.1 fL (80.0-100.0) H 06/12/23 04:25 MCH 34.4 pg (27.0-34.0) H 06/12/23 04:25 MCHC 33.0 g/dL (33.0-35.0) 06/12/23 04:25 RDW 18.9 % (11.6-16.5) H 06/12/23 04:25 Plt Count 178 X10^3/uL (150.0-450.0) 06/12/23 04:25 Plt Count Comment Adequate (ADEQUATE) 06/11/23 04:39 MPV 7.1 fL (7.4-11.0) L 06/12/23 04:25 Neut % (Auto) 72.6 % (42.0-75.0) 06/12/23 04:25 Lymph % (Auto) 18.0 % (21.0-51.0) L 06/12/23 04:25 [place] % (Auto) 8.0 % (0.0-13.0) 06/12/23 04:25 Eos % (Auto) 0.7 % (0.9-2.9) L 06/12/23 04:25 Baso % (Auto) 0.7 % (0.2-1.0) 06/12/23 04:25 Neut # (Auto) 4.2 x10^3/uL (2.2-4.8) 06/12/23 04:25 Lymph # (Auto) 1.0 X10^3/uL (1.3-2.9) L 06/12/23 04:25 [place] # (Auto) 0.5 x10^3/uL (0.3-0.8) 06/12/23 04:25 Eos # (Auto) 0.0 x10^3/uL (0.0-0.2) 06/12/23 04:25 Baso # (Auto) 0.0 X10^3/uL (0.0-0.1) 06/12/23 04:25 Absolute Nucleated RBC 0.1 /100WBC 06/12/23 04:25 Plt Morphology Comment Normal (NORMAL) 06/11/23 04:39 RBC Morphology Abnormal (NORMAL) 06/11/23 04:39 Anisocytosis Slight A 06/11/23 04:39 Macrocytosis 1+ A 06/11/23 04:39 Tear Drop Cells Slight 06/10/23 04:30 Ovalocytes Present 06/05/23 04:56 Stomatocytes Slight A 06/11/23 04:39 Absolute Retic 0.0355 10^6/uL 06/05/23 04:56 Percent Retic 1.88 % (0.8-2.2) 06/05/23 04:56 PT 14.1 SECONDS (11.8-14.3) 06/12/23 04:25 INR Target Range - 06/12/23 04:25 INR 1.11 (0.8-1.3) 06/12/23 04:25 APTT 41.0 SECONDS (22.9-36.5) H 06/05/23 04:56 PTT Comment - 06/05/23 04:56 Sodium 136 mmol/L (136-145) 06/12/23 04:25 Corrected Sodium TNP 06/12/23 04:25 Potassium 3.5 mmol/L (3.5-5.1) 06/12/23 04:25 Chloride 100 mmol/L (98-107) 06/12/23 04:25 Carbon Dioxide 29.1 mmol/L (21-32) 06/12/23 04:25 BUN 3 mg/dL (7-18) L 06/12/23 04:25 Creatinine 0.59 mg/dL (0.70-1.30) L 06/12/23 04:25 Est GFR (MDRD) Af Amer > 60 (>60) 06/12/23 04:25 Est GFR (MDRD) Non-Af > 60 (>60) 06/12/23 04:25 Glucose 100 mg/dL (65-99) H 06/12/23 04:25 Calcium 8.1 mg/dL (8.5-10.1) L 06/12/23 04:25 Corrected Calcium 9.2 mg/dL (8.5-10.1) 06/12/23 04:25 Magnesium 2.1 mg/dL (2.0-2.9) 06/12/23 04:35 Iron 278 ug/dL (50-175) H 06/04/23 16:20 Iron 279 ug/dL (50-175) H 06/04/23 16:20 TIBC 323 ug/dL (250-450) 06/04/23 16:20 % Saturation 86.4 % (11.0-46.0) H 06/04/23 16:20 Transferrin 208 mg/dL (202-364) 06/04/23 16:20 Ferritin 1503 ng/mL (26-388) H 06/04/23 16:20 Total Bilirubin 1.40 mg/dL (0.2-1.0) H 06/12/23 04:25 AST 68 Units/L (15-37) H 06/12/23 04:25 ALT 35 Units/L (12-78) 06/12/23 04:25 Alkaline Phosphatase 183 Units/L (46-116) H 06/12/23 04:25 Creatine Kinase 46 Units/L (39-308) 06/04/23 16:20 Troponin I High Sens 4.5 ng/L (4.0-60.0) 06/04/23 16:20 Total Protein 6.8 g/dL (6.4-8.2) 06/12/23 04:25 Albumin 2.6 g/dL (3.4-5.0) L 06/12/23 04:25 Globulin 4.2 g/dL (2.5-4.5) 06/12/23 04:25 Albumin/Globulin Ratio 0.6 Ratio (1.1-2.1) L 06/12/23 04:25 Amylase 36 Units/L (25-115) 06/04/23 16:20 Lipase 66 Units/L (16-77) 06/04/23 16:20 Vitamin B12 475 pg/mL (193-986) 06/05/23 04:56 Folate 2.4 ng/mL (>8.6) L 06/05/23 04:56 Specimen Type Catherized urine 06/09/23 09:45 Urine Color [place] (YELLOW) 06/09/23 09:45 Urine Appearance Clear (CLEAR) 06/09/23 09:45 Urine pH 6.0 (5.0 - 8.0) 06/09/23 09:45 Ur Specific [place] 1.025 (1.000-1.030) 06/09/23 09:45 Urine Protein 2+ (NEGATIVE) 06/09/23 09:45 Urine Glucose (UA) Negative (NEGATIVE) 06/09/23 09:45 Urine Ketones 2+ (NEGATIVE) 06/09/23 09:45 Urine Blood Negative (NEGATIVE) 06/09/23 09:45 Urine Nitrite Negative (NEGATIVE) 06/09/23 09:45 Urine Bilirubin 1+ (NEGATIVE) 06/09/23 09:45 Urine Urobilinogen 4+ (NORMAL) 06/09/23 09:45 Ur Leukocyte Esterase Negative (NEGATIVE) 06/09/23 09:45 Urine RBC 0-2 /HPF (0-3) 06/09/23 09:45 Urine WBC 0-2 /HPF (0-5) 06/09/23 09:45 Ur Squamous Epith Cells Rare /HPF (NEGATIVE) 06/09/23 09:45 Urine Bacteria Trace /HPF (NEGATIVE) 06/09/23 09:45 Urine Mucus Many /HPF (NEGATIVE) 06/09/23 09:45 Ur Culture Indicated? No/not indicated 06/09/23 09:45 Stl Occult Blood (IFOB) Negative (NEGATIVE) 06/11/23 19:52 Urine Opiates Screen Positive (NEG=<300) 06/05/23 21:11 Urine Methadone Screen Negative (NEG=<300) 06/05/23 21:11 Ur Barbiturates Screen Negative (NEG=<200) 06/05/23 21:11 Ur Phencyclidine Scrn Negative (NEG=<25) 06/05/23 21:11 Ur Amphetamines Screen Negative (NEG=<1000) 06/05/23 21:11 U Benzodiazepines Scrn Negative (NEG=<200) 06/05/23 21:11 Urine Cocaine Screen Negative (NEG=<300) 06/05/23 21:11 U Marijuana (THC) Screen Negative (NEG=<50) 06/05/23 21:11 Ethyl Alcohol mg/dL < 3 mg/dL (0-19.9) 06/05/23 04:56 Blood Type Cancelled 06/09/23 13:36 Antibody Screen Cancelled 06/09/23 13:36 Crossmatch See Detail 06/09/23 13:36 Plan (1) Alcoholic liver failure: Status: Acute Plan: Treatment per gastroenterology. (2) Hepatosplenomegaly: Status: Acute Plan: Follow-up consult with gastroenterology. (3) Insomnia: Status: Acute Plan: The patient was started on Seroquel 100 mg p.o. nightly and we will continue that for now. It also helps with his agitation from being detoxed from chronic alcoholism. (4) Hepatic steatosis: Status: Acute Plan: Follow-up gastroenterology consultation. (5) Pancreatic atrophy: Status: Acute Plan: Follow-up with gastroenterology consultation. (6) Diffuse abdominal pain: Status: Acute Plan: Monitor for improvement and pain control as needed. (7) Alcohol use disorder: Status: Acute Plan: Alcohol detox protocol. Counseled patient on alcohol cessation. (8) Folate deficiency: Status: Acute Plan: Continue folate 1 mg p.o. daily. (9) Elevated ferritin level: Status: Acute Plan: Discussed with gastroenterology to see if patient needs a workup for hemochromatosis or if they think that the high ferritin and iron levels are secondary to chronic alcohol ingestion. (10) Macrocytic anemia: Status: Acute Plan: Transfused 2 units of packed red blood cells today. Continue folate supplementation since the patient had a low folate level at 2.4. (11) Acute hypokalemia: Status: Resolved Plan: Potassium replacement protocol.
[2023-06-13 05:23] LABS: BASOPHILS % (AUTO) 0.3 % (0.2-1.0); EOSINOPHILS % (AUTO) 0.4 % (0.9-2.9); HEMATOCRIT 25.4 % (42.0-54.0); HEMOGLOBIN 8.1 g/dL (13.5-18.0); LYMPHOCYTES # (AUTO) 0.8 X10^3/uL (1.3-2.9); MEAN CORPUSCULAR HEMOGLOBIN 33.6 pg (27.0-34.0); MEAN CORPUSCULAR VOLUME 105.1 fL (80.0-100.0); MEAN PLATELET VOLUME 7.2 fL (7.4-11.0); MONOCYTES # (AUTO) 0.5 x10^3/uL (0.3-0.8); NEUTROPHILS # (AUTO) 7.3 x10^3/uL (2.2-4.8); NEUTROPHILS % (AUTO) 84.3 % (42.0-75.0); PLATELET COUNT 234 X10^3/uL (150.0-450.0); RED BLOOD COUNT 2.42 X10^6/uL (4.7-6.0); WHITE BLOOD COUNT 8.6 X10^3/uL (3.6-10.0)
[2023-06-13 05:42] LABS: ALANINE AMINOTRANSFERASE 42 Units/L (12-78); ALBUMIN 2.7 g/dL (3.4-5.0); ALKALINE PHOSPHATASE 189 Units/L (46-116); ASPARTATE AMINO TRANSFERASE 97 Units/L (15-37); BLOOD UREA NITROGEN 4 mg/dL (7-18); CALCIUM 8.3 mg/dL (8.5-10.1); CARBON DIOXIDE 29.4 mmol/L (21-32); CHLORIDE 96 mmol/L (98-107); COR CA(FOR HYPOALB) 9.3 mg/dL (8.5-10.1); COR NA(FOR HYPERGLY) 132 mmol/L (136-145); GLUCOSE 119 mg/dL (65-99); MAGNESIUM 2.2 mg/dL (2.0-2.9); POTASSIUM 4.1 mmol/L (3.5-5.1); SODIUM 132 mmol/L (136-145); TOTAL PROTEIN 7.1 g/dL (6.4-8.2); eGFR NON BLACK RACES > 60 (>60)
[2023-06-13 05:49] LABS: ANISOCYTOSIS SLIGHT; PLATELET MORPHOLOGY COMMENT NORMAL (NORMAL); STOMATOCYTES SLIGHT; TEAR DROP CELLS SLIGHT
[2023-06-13] MEDS: ZYMAXID EACHEYE SCH ×2 (09:47→22:26)
[2023-06-13] MEDS: FOLTX PO SCH (12:50)
[2023-06-13] MEDS: PHENOBARBITAL TAB 15 MG (16.2MG) PO SCH ×4 (13:00→22:26)
[2023-06-13] MEDS: LOPRESSOR TAB 25 MG PO SCH ×2 (13:13→21:33)
[2023-06-13] MEDS: LYRICA CAP 75 mg PO SCH ×2 (13:14→21:33)
--- NOTE | 2023-06-13 21:04 | PCM.PROG ---
Progress Note Progress Note for Day of Date of Exam: 06/13/23 Subjective Subjective: The patient is a 48-year-old male admitted for alcohol withdrawal and electrolyte abnormalities. This morning he is resting in bed comfortably. He is very difficult to arouse again this morning. I think Seroquel is over- sedating him. I will cut back his 100 mg dose to 50 mg at bedtime tonight. He is scheduled for EGD tomorrow, and we will follow up with that per Dr. Muhammad, gastroenterology. He is also going to speak with the family about the findings and the patient's prognosis. We will continue to wean at his phenobarbital today again. His vital signs are currently stable and look good as well as his blood pressure. Past Medical Family Social History Allergies: Allergies shellfish derived Allergy (Verified 06/27/19 23:54) Review of Systems ROS: Changes notes (describe) (Insomnia) Vital Signs and I&O's Vital Signs: Vital Signs Temperature 98.0 F Temperature 97.9 F Pulse Rate 91 Pulse Rate 84 Respiratory Rate 18 Respiratory Rate 17 Blood Pressure 121/77 Blood Pressure 127/73 O2 Sat by Pulse Oximetry 95 O2 Sat by Pulse Oximetry 95 Intake and Output: Intake & Output 06/11/23 06/12/23 06/13/23 06/14/23 11:59 11:59 11:59 11:59 Intake Total 545 / 545 1561 / 1561 1724 / 1724 250 / 250 Output Total 1300 / 1300 800 / 800 Balance -755 / -755 761 / 761 1724 / 1724 250 / 250 Physical Exam Oriented: Normal Eyes: Normal Ear: Normal Nose: Normal Throat: Normal Respiratory: Normal Cardiovascular: Normal : Normal Auscultation: Bowel Sounds: Normal Tenderness: Normal Skin: Normal Musculoskeletal: Normal Psychiatric: Normal Mood Description: Calm Affect: Normal Speech Pattern: Delayed Laboratory and Diagnostics 06/13/23 04:35 06/13/23 04:35 Labs: Laboratory WBC 8.6 X10^3/uL (3.6-10.0) 06/13/23 04:35 RBC 2.42 X10^6/uL (4.7-6.0) L 06/13/23 04:35 Hgb 8.1 g/dL (13.5-18.0) L 06/13/23 04:35 Hct 25.4 % (42.0-54.0) L 06/13/23 04:35 MCV 105.1 fL (80.0-100.0) H 06/13/23 04:35 MCH 33.6 pg (27.0-34.0) 06/13/23 04:35 MCHC 32.0 g/dL (33.0-35.0) L 06/13/23 04:35 RDW 19.0 % (11.6-16.5) H 06/13/23 04:35 Plt Count 234 X10^3/uL (150.0-450.0) 06/13/23 04:35 Plt Count Comment Adequate (ADEQUATE) 06/13/23 04:35 MPV 7.2 fL (7.4-11.0) L 06/13/23 04:35 Neut % (Auto) 84.3 % (42.0-75.0) H 06/13/23 04:35 Lymph % (Auto) 9.0 % (21.0-51.0) L 06/13/23 04:35 [place] % (Auto) 6.0 % (0.0-13.0) 06/13/23 04:35 Eos % (Auto) 0.4 % (0.9-2.9) L 06/13/23 04:35 Baso % (Auto) 0.3 % (0.2-1.0) 06/13/23 04:35 Neut # (Auto) 7.3 x10^3/uL (2.2-4.8) H 06/13/23 04:35 Lymph # (Auto) 0.8 X10^3/uL (1.3-2.9) L 06/13/23 04:35 [place] # (Auto) 0.5 x10^3/uL (0.3-0.8) 06/13/23 04:35 Eos # (Auto) 0.0 x10^3/uL (0.0-0.2) 06/13/23 04:35 Baso # (Auto) 0.0 X10^3/uL (0.0-0.1) 06/13/23 04:35 Absolute Nucleated RBC 0.1 /100WBC 06/13/23 04:35 Plt Morphology Comment Normal (NORMAL) 06/13/23 04:35 RBC Morphology Abnormal (NORMAL) 06/13/23 04:35 Anisocytosis Slight A 06/13/23 04:35 Macrocytosis 1+ A 06/13/23 04:35 Tear Drop Cells Slight 06/13/23 04:35 Ovalocytes Present 06/05/23 04:56 Stomatocytes Slight A 06/13/23 04:35 Absolute Retic 0.0355 10^6/uL 06/05/23 04:56 Percent Retic 1.88 % (0.8-2.2) 06/05/23 04:56 PT 14.1 SECONDS (11.8-14.3) 06/12/23 04:25 INR Target Range - 06/12/23 04:25 INR 1.11 (0.8-1.3) 06/12/23 04:25 APTT 41.0 SECONDS (22.9-36.5) H 06/05/23 04:56 PTT Comment - 06/05/23 04:56 Sodium 132 mmol/L (136-145) L 06/13/23 04:35 Corrected Sodium 132 mmol/L (136-145) L 06/13/23 04:35 Potassium 4.1 mmol/L (3.5-5.1) 06/13/23 04:35 Chloride 96 mmol/L (98-107) L 06/13/23 04:35 Carbon Dioxide 29.4 mmol/L (21-32) 06/13/23 04:35 BUN 4 mg/dL (7-18) L 06/13/23 04:35 Creatinine 0.70 mg/dL (0.70-1.30) 06/13/23 04:35 Est GFR (MDRD) Af Amer > 60 (>60) 06/13/23 04:35 Est GFR (MDRD) Non-Af > 60 (>60) 06/13/23 04:35 Glucose 119 mg/dL (65-99) H 06/13/23 04:35 Calcium 8.3 mg/dL (8.5-10.1) L 06/13/23 04:35 Corrected Calcium 9.3 mg/dL (8.5-10.1) 06/13/23 04:35 Magnesium 2.2 mg/dL (2.0-2.9) 06/13/23 04:35 Iron 278 ug/dL (50-175) H 06/04/23 16:20 Iron 279 ug/dL (50-175) H 06/04/23 16:20 TIBC 323 ug/dL (250-450) 06/04/23 16:20 % Saturation 86.4 % (11.0-46.0) H 06/04/23 16:20 Transferrin 208 mg/dL (202-364) 06/04/23 16:20 Ferritin 1503 ng/mL (26-388) H 06/04/23 16:20 Total Bilirubin 1.30 mg/dL (0.2-1.0) H 06/13/23 04:35 AST 97 Units/L (15-37) H 06/13/23 04:35 ALT 42 Units/L (12-78) 06/13/23 04:35 Alkaline Phosphatase 189 Units/L (46-116) H 06/13/23 04:35 Creatine Kinase 46 Units/L (39-308) 06/04/23 16:20 Troponin I High Sens 4.5 ng/L (4.0-60.0) 06/04/23 16:20 Total Protein 7.1 g/dL (6.4-8.2) 06/13/23 04:35 Albumin 2.7 g/dL (3.4-5.0) L 06/13/23 04:35 Globulin 4.4 g/dL (2.5-4.5) 06/13/23 04:35 Albumin/Globulin Ratio 0.6 Ratio (1.1-2.1) L 06/13/23 04:35 Amylase 36 Units/L (25-115) 06/04/23 16:20 Lipase 66 Units/L (16-77) 06/04/23 16:20 Vitamin B12 475 pg/mL (193-986) 06/05/23 04:56 Folate 2.4 ng/mL (>8.6) L 06/05/23 04:56 Specimen Type Catherized urine 06/09/23 09:45 Urine Color [place] (YELLOW) 06/09/23 09:45 Urine Appearance Clear (CLEAR) 06/09/23 09:45 Urine pH 6.0 (5.0 - 8.0) 06/09/23 09:45 Ur Specific [place] 1.025 (1.000-1.030) 06/09/23 09:45 Urine Protein 2+ (NEGATIVE) 06/09/23 09:45 Urine Glucose (UA) Negative (NEGATIVE) 06/09/23 09:45 Urine Ketones 2+ (NEGATIVE) 06/09/23 09:45 Urine Blood Negative (NEGATIVE) 06/09/23 09:45 Urine Nitrite Negative (NEGATIVE) 06/09/23 09:45 Urine Bilirubin 1+ (NEGATIVE) 06/09/23 09:45 Urine Urobilinogen 4+ (NORMAL) 06/09/23 09:45 Ur Leukocyte Esterase Negative (NEGATIVE) 06/09/23 09:45 Urine RBC 0-2 /HPF (0-3) 06/09/23 09:45 Urine WBC 0-2 /HPF (0-5) 06/09/23 09:45 Ur Squamous Epith Cells Rare /HPF (NEGATIVE) 06/09/23 09:45 Urine Bacteria Trace /HPF (NEGATIVE) 06/09/23 09:45 Urine Mucus Many /HPF (NEGATIVE) 06/09/23 09:45 Ur Culture Indicated? No/not indicated 06/09/23 09:45 Stl Occult Blood (IFOB) Negative (NEGATIVE) 06/11/23 19:52 Urine Opiates Screen Positive (NEG=<300) 06/05/23 21:11 Urine Methadone Screen Negative (NEG=<300) 06/05/23 21:11 Ur Barbiturates Screen Negative (NEG=<200) 06/05/23 21:11 Ur Phencyclidine Scrn Negative (NEG=<25) 06/05/23 21:11 Ur Amphetamines Screen Negative (NEG=<1000) 06/05/23 21:11 U Benzodiazepines Scrn Negative (NEG=<200) 06/05/23 21:11 Urine Cocaine Screen Negative (NEG=<300) 06/05/23 21:11 U Marijuana (THC) Screen Negative (NEG=<50) 06/05/23 21:11 Ethyl Alcohol mg/dL < 3 mg/dL (0-19.9) 06/05/23 04:56 Blood Type Cancelled 06/09/23 13:36 Antibody Screen Cancelled 06/09/23 13:36 Crossmatch See Detail 06/09/23 13:36 Plan (1) Alcoholic liver failure: Status: Acute Plan: Treatment per gastroenterology. (2) Hepatosplenomegaly: Status: Acute Plan: Follow-up consult with gastroenterology. (3) Insomnia: Status: Acute Plan: I am going to decrease the patient Seroquel 100 mg at at bedtime to 50 mg at at bedtime as he is oversedated the following morning. (4) Hepatic steatosis: Status: Acute Plan: Follow-up gastroenterology consultation. (5) Pancreatic atrophy: Status: Acute Plan: Follow-up with gastroenterology consultation. (6) Diffuse abdominal pain: Status: Acute Plan: Monitor for improvement and pain control as needed. (7) Alcohol use disorder: Status: Acute Plan: Alcohol detox protocol. Counseled patient on alcohol cessation. (8) Folate deficiency: Status: Acute Plan: Continue folate 1 mg p.o. daily. (9) Elevated ferritin level: Status: Acute Plan: Discussed with gastroenterology to see if patient needs a workup for hemochromatosis or if they think that the high ferritin and iron levels are secondary to chronic alcohol ingestion. (10) Macrocytic anemia: Status: Acute Plan: Transfused 2 units of packed red blood cells today. Continue folate supplementation since the patient had a low folate level at 2.4. (11) Acute hypokalemia: Status: Resolved Plan: Potassium replacement protocol.
[2023-06-13] MEDS: COLACE CAP 100 MG PO SCH (21:33)
[2023-06-14 05:39] LABS: BASOPHILS # (AUTO) 0.1 X10^3/uL (0.0-0.1); EOSINOPHILS # (AUTO) 0.1 x10^3/uL (0.0-0.2); EOSINOPHILS % (AUTO) 1.3 % (0.9-2.9); HEMATOCRIT 26.9 % (42.0-54.0); HEMOGLOBIN 8.6 g/dL (13.5-18.0); LYMPHOCYTES # (AUTO) 0.8 X10^3/uL (1.3-2.9); LYMPHOCYTES % (AUTO) 11.1 % (21.0-51.0); MEAN CORPUSCULAR HEMOGLOBIN 33.6 pg (27.0-34.0); MEAN CORPUSCULAR VOLUME 104.9 fL (80.0-100.0); MEAN PLATELET VOLUME 7.3 fL (7.4-11.0); MONOCYTES # (AUTO) 0.5 x10^3/uL (0.3-0.8); MONOCYTES % (AUTO) 6.6 % (0.0-13.0); NEUTROPHILS # (AUTO) 5.8 x10^3/uL (2.2-4.8); PLATELET COUNT 279 X10^3/uL (150.0-450.0); RED BLOOD COUNT 2.56 X10^6/uL (4.7-6.0); RED CELL DISTRIBUTION WIDTH 18.5 % (11.6-16.5); WHITE BLOOD COUNT 7.2 X10^3/uL (3.6-10.0)
[2023-06-14 05:59] LABS: ALANINE AMINOTRANSFERASE 53 Units/L (12-78); ALBUMIN 2.7 g/dL (3.4-5.0); ALKALINE PHOSPHATASE 195 Units/L (46-116); ASPARTATE AMINO TRANSFERASE 120 Units/L (15-37); BLOOD UREA NITROGEN 5 mg/dL (7-18); CALCIUM 8.2 mg/dL (8.5-10.1); CARBON DIOXIDE 29.7 mmol/L (21-32); CHLORIDE 98 mmol/L (98-107); COR CA(FOR HYPOALB) 9.2 mg/dL (8.5-10.1); CREATININE 0.68 mg/dL (0.70-1.30); GLUCOSE 95 mg/dL (65-99); POTASSIUM 3.9 mmol/L (3.5-5.1); SODIUM 133 mmol/L (136-145); TOTAL PROTEIN 7.2 g/dL (6.4-8.2); eGFR NON BLACK RACES > 60 (>60)
[2023-06-14] MEDS: FOLTX PO SCH (09:45)
[2023-06-14] MEDS ORDERED: DIPROLENE CREAM 0.05% TOP SCH (09:45)
[2023-06-14] MEDS: LYRICA CAP 75 mg PO SCH ×2 (09:46→20:09)
[2023-06-14] MEDS ORDERED: KENALOG CREAM TOP SCH (10:00)
[2023-06-14] MEDS ORDERED: CONSULT PHARMACY - ANTIBIOTIC XX SCH (10:00)
[2023-06-14] MEDS: PHENOBARBITAL TAB 15 MG (16.2MG) PO SCH (10:03)
[2023-06-14] MEDS: LOPRESSOR TAB 25 MG PO SCH ×2 (10:03→20:09)
[2023-06-14] MEDS: ZYMAXID EACHEYE SCH ×2 (10:04→20:09)
[2023-06-14] MEDS: DIPROLENE CREAM 0.05% TOP SCH (10:45)
[2023-06-14] MEDS ORDERED: DIPRIVAN VIAL 20 ML ONE (11:19)
[2023-06-14] MEDS: PROTONIX TAB 40 MG PO SCH (14:58)
[2023-06-14] MEDS: VISTARIL PO PRN (14:58)
[2023-06-14] MEDS: NORCO 5/325 MG TAB PO PRN (18:00)
[2023-06-14] MEDS: COLACE CAP 100 MG PO SCH (20:08)
--- NOTE | 2023-06-14 20:34 | PCM.PROG ---
Progress Note Progress Note for Day of Date of Exam: 06/14/23 Subjective Subjective: The patient is a 48-year-old male admitted for alcohol withdrawal and electrolyte abnormalities. This morning he is resting in bed comfortably. The patient is alert and awake this morning. He is conversing normally, and he knows that he will be getting an EGD later this morning. The patient did have an EGD later in the day, and it showed that he has distal esophagitis, portal hypertensive gastropathy, and erosive gastritis. Gastroenterology recommended that the patient can be followed up as an outpatient and he does not meet criteria to be on the liver transplant list at this time. The patient's anemia has improved as his hemoglobin is up to 8.6 today and the patient's bilirubin is stable at 1.3. His kidney function is normal but he remains weak. We are ordering a physical therapy consultation today to try benefit strength and hopefully over the next few days and over the weekend he will get stronger and we can possibly discharge him first of next week. Past Medical Family Social History Allergies: Allergies shellfish derived Allergy (Verified 06/27/19 23:54) Review of Systems ROS: Changes notes (describe) (Insomnia) Vital Signs and I&O's Vital Signs: Vital Signs Temperature 98.3 F Pulse Rate 88 Pulse Rate 91 Pulse Rate 89 Pulse Rate 91 Pulse Rate 89 Pulse Rate 82 Pulse Rate 82 Pulse Rate 84 Pulse Rate 84 Blood Pressure 123/87 Blood Pressure 116/66 Blood Pressure 126/85 Blood Pressure 138/84 Blood Pressure 133/74 Blood Pressure 106/55 O2 Sat by Pulse Oximetry 97 O2 Sat by Pulse Oximetry 98 O2 Sat by Pulse Oximetry 93 O2 Sat by Pulse Oximetry 97 O2 Sat by Pulse Oximetry 90 O2 Sat by Pulse Oximetry 96 O2 Sat by Pulse Oximetry 96 O2 Sat by Pulse Oximetry 93 O2 Sat by Pulse Oximetry 94 Intake and Output: Intake & Output 06/12/23 06/13/23 06/14/23 06/15/23 11:59 11:59 11:59 11:59 Intake Total 1561 / 1561 1724 / 1724 620 / 620 370 / 370 Output Total 800 / 800 200 / 200 Balance 761 / 761 1724 / 1724 620 / 620 170 / 170 Physical Exam Oriented: Normal Eyes: Normal Ear: Normal Nose: Normal Throat: Normal Respiratory: Normal Cardiovascular: Normal : Normal Auscultation: Bowel Sounds: Normal Tenderness: Normal Skin: Normal Musculoskeletal: Normal Psychiatric: Normal Mood Description: Calm Affect: Normal Speech Pattern: Clear and Appropriate Laboratory and Diagnostics 06/14/23 05:00 06/14/23 05:00 Labs: Laboratory WBC 7.2 X10^3/uL (3.6-10.0) 06/14/23 05:00 RBC 2.56 X10^6/uL (4.7-6.0) L 06/14/23 05:00 Hgb 8.6 g/dL (13.5-18.0) L 06/14/23 05:00 Hct 26.9 % (42.0-54.0) L 06/14/23 05:00 MCV 104.9 fL (80.0-100.0) H 06/14/23 05:00 MCH 33.6 pg (27.0-34.0) 06/14/23 05:00 MCHC 32.0 g/dL (33.0-35.0) L 06/14/23 05:00 RDW 18.5 % (11.6-16.5) H 06/14/23 05:00 Plt Count 279 X10^3/uL (150.0-450.0) 06/14/23 05:00 Plt Count Comment Adequate (ADEQUATE) 06/13/23 04:35 MPV 7.3 fL (7.4-11.0) L 06/14/23 05:00 Neut % (Auto) 80.0 % (42.0-75.0) H 06/14/23 05:00 Lymph % (Auto) 11.1 % (21.0-51.0) L 06/14/23 05:00 [place] % (Auto) 6.6 % (0.0-13.0) 06/14/23 05:00 Eos % (Auto) 1.3 % (0.9-2.9) 06/14/23 05:00 Baso % (Auto) 1.0 % (0.2-1.0) 06/14/23 05:00 Neut # (Auto) 5.8 x10^3/uL (2.2-4.8) H 06/14/23 05:00 Lymph # (Auto) 0.8 X10^3/uL (1.3-2.9) L 06/14/23 05:00 [place] # (Auto) 0.5 x10^3/uL (0.3-0.8) 06/14/23 05:00 Eos # (Auto) 0.1 x10^3/uL (0.0-0.2) 06/14/23 05:00 Baso # (Auto) 0.1 X10^3/uL (0.0-0.1) 06/14/23 05:00 Absolute Nucleated RBC 0.1 /100WBC 06/14/23 05:00 Plt Morphology Comment Normal (NORMAL) 06/13/23 04:35 RBC Morphology Abnormal (NORMAL) 06/13/23 04:35 Anisocytosis Slight A 06/13/23 04:35 Macrocytosis 1+ A 06/13/23 04:35 Tear Drop Cells Slight 06/13/23 04:35 Ovalocytes Present 06/05/23 04:56 Stomatocytes Slight A 06/13/23 04:35 Absolute Retic 0.0355 10^6/uL 06/05/23 04:56 Percent Retic 1.88 % (0.8-2.2) 06/05/23 04:56 PT 14.1 SECONDS (11.8-14.3) 06/12/23 04:25 INR Target Range - 06/12/23 04:25 INR 1.11 (0.8-1.3) 06/12/23 04:25 APTT 41.0 SECONDS (22.9-36.5) H 06/05/23 04:56 PTT Comment - 06/05/23 04:56 Sodium 133 mmol/L (136-145) L 06/14/23 05:00 Corrected Sodium TNP 06/14/23 05:00 Potassium 3.9 mmol/L (3.5-5.1) 06/14/23 05:00 Chloride 98 mmol/L (98-107) 06/14/23 05:00 Carbon Dioxide 29.7 mmol/L (21-32) 06/14/23 05:00 BUN 5 mg/dL (7-18) L 06/14/23 05:00 Creatinine 0.68 mg/dL (0.70-1.30) L 06/14/23 05:00 Est GFR (MDRD) Af Amer > 60 (>60) 06/14/23 05:00 Est GFR (MDRD) Non-Af > 60 (>60) 06/14/23 05:00 Glucose 95 mg/dL (65-99) 06/14/23 05:00 Calcium 8.2 mg/dL (8.5-10.1) L 06/14/23 05:00 Corrected Calcium 9.2 mg/dL (8.5-10.1) 06/14/23 05:00 Magnesium 2.2 mg/dL (2.0-2.9) 06/13/23 04:35 Iron 278 ug/dL (50-175) H 06/04/23 16:20 Iron 279 ug/dL (50-175) H 06/04/23 16:20 TIBC 323 ug/dL (250-450) 06/04/23 16:20 % Saturation 86.4 % (11.0-46.0) H 06/04/23 16:20 Transferrin 208 mg/dL (202-364) 06/04/23 16:20 Ferritin 1503 ng/mL (26-388) H 06/04/23 16:20 Total Bilirubin 1.30 mg/dL (0.2-1.0) H 06/14/23 05:00 AST 120 Units/L (15-37) H 06/14/23 05:00 ALT 53 Units/L (12-78) 06/14/23 05:00 Alkaline Phosphatase 195 Units/L (46-116) H 06/14/23 05:00 Ammonia 57 umol/L (11-32) H 06/14/23 11:58 Creatine Kinase 46 Units/L (39-308) 06/04/23 16:20 Troponin I High Sens 4.5 ng/L (4.0-60.0) 06/04/23 16:20 Total Protein 7.2 g/dL (6.4-8.2) 06/14/23 05:00 Albumin 2.7 g/dL (3.4-5.0) L 06/14/23 05:00 Globulin 4.5 g/dL (2.5-4.5) 06/14/23 05:00 Albumin/Globulin Ratio 0.6 Ratio (1.1-2.1) L 06/14/23 05:00 Amylase 36 Units/L (25-115) 06/04/23 16:20 Lipase 66 Units/L (16-77) 06/04/23 16:20 Vitamin B12 475 pg/mL (193-986) 06/05/23 04:56 Folate 2.4 ng/mL (>8.6) L 06/05/23 04:56 Specimen Type Catherized urine 06/09/23 09:45 Urine Color Gisele (YELLOW) 06/09/23 09:45 Urine Appearance Clear (CLEAR) 06/09/23 09:45 Urine pH 6.0 (5.0 - 8.0) 06/09/23 09:45 Ur Specific [place] 1.025 (1.000-1.030) 06/09/23 09:45 Urine Protein 2+ (NEGATIVE) 06/09/23 09:45 Urine Glucose (UA) Negative (NEGATIVE) 06/09/23 09:45 Urine Ketones 2+ (NEGATIVE) 06/09/23 09:45 Urine Blood Negative (NEGATIVE) 06/09/23 09:45 Urine Nitrite Negative (NEGATIVE) 06/09/23 09:45 Urine Bilirubin 1+ (NEGATIVE) 06/09/23 09:45 Urine Urobilinogen 4+ (NORMAL) 06/09/23 09:45 Ur Leukocyte Esterase Negative (NEGATIVE) 06/09/23 09:45 Urine RBC 0-2 /HPF (0-3) 06/09/23 09:45 Urine WBC 0-2 /HPF (0-5) 06/09/23 09:45 Ur Squamous Epith Cells Rare /HPF (NEGATIVE) 06/09/23 09:45 Urine Bacteria Trace /HPF (NEGATIVE) 06/09/23 09:45 Urine Mucus Many /HPF (NEGATIVE) 06/09/23 09:45 Ur Culture Indicated? No/not indicated 06/09/23 09:45 Stl Occult Blood (IFOB) Negative (NEGATIVE) 06/11/23 19:52 Urine Opiates Screen Positive (NEG=<300) 06/05/23 21:11 Urine Methadone Screen Negative (NEG=<300) 06/05/23 21:11 Ur Barbiturates Screen Negative (NEG=<200) 06/05/23 21:11 Ur Phencyclidine Scrn Negative (NEG=<25) 06/05/23 21:11 Ur Amphetamines Screen Negative (NEG=<1000) 06/05/23 21:11 U Benzodiazepines Scrn Negative (NEG=<200) 06/05/23 21:11 Urine Cocaine Screen Negative (NEG=<300) 06/05/23 21:11 U Marijuana (THC) Screen Negative (NEG=<50) 06/05/23 21:11 Ethyl Alcohol mg/dL < 3 mg/dL (0-19.9) 06/05/23 04:56 Blood Type Cancelled 06/09/23 13:36 Antibody Screen Cancelled 06/09/23 13:36 Crossmatch See Detail 06/09/23 13:36 Plan (1) Generalized weakness: Status: Acute Plan: Physical therapy consult today. (2) Alcoholic liver failure: Status: Acute Plan: Treatment per gastroenterology. Patient was counseled on abstaining from alcohol then he states he knows he needs to stop drinking. (3) Hepatosplenomegaly: Status: Acute Plan: Follow-up consult with gastroenterology. (4) Insomnia: Status: Acute Plan: I am going to decrease the patient Seroquel 100 mg at at bedtime to 50 mg at at bedtime as he is oversedated the following morning. (5) Hepatic steatosis: Status: Acute Plan: Follow-up gastroenterology consultation. (6) Pancreatic atrophy: Status: Acute Plan: Follow-up with gastroenterology consultation. (7) Diffuse abdominal pain: Status: Acute Plan: Monitor for improvement and pain control as needed. (8) Alcohol use disorder: Status: Acute Plan: Alcohol detox protocol. Counseled patient on alcohol cessation. (9) Folate deficiency: Status: Acute Plan: Continue folate 1 mg p.o. daily. (10) Elevated ferritin level: Status: Acute Plan: Discussed with gastroenterology to see if patient needs a workup for hemochromatosis or if they think that the high ferritin and iron levels are secondary to chronic alcohol ingestion. (11) Macrocytic anemia: Status: Acute Plan: Transfused 2 units of packed red blood cells today. Continue folate supplementation since the patient had a low folate level at 2.4. (12) Acute hypokalemia: Status: Resolved Plan: Potassium replacement protocol. (13) Portal hypertensive gastropathy: Status: Acute (14) Erosive gastritis: Status: Acute (15) Esophagitis determined by endoscopy: Status: Acute
[2023-06-14] MEDS: VALIUM PO PRN (21:18)
[2023-06-15] MEDS: NORCO 5/325 MG TAB PO PRN ×2 (04:49→11:27)
[2023-06-15 05:41] LABS: BASOPHILS # (AUTO) 0.1 X10^3/uL (0.0-0.1); BASOPHILS % (AUTO) 1.5 % (0.2-1.0); EOSINOPHILS # (AUTO) 0.1 x10^3/uL (0.0-0.2); EOSINOPHILS % (AUTO) 1.1 % (0.9-2.9); HEMATOCRIT 26.5 % (42.0-54.0); HEMOGLOBIN 8.6 g/dL (13.5-18.0); LYMPHOCYTES % (AUTO) 14.8 % (21.0-51.0); MEAN CORPUSCULAR HGB CONC 32.6 g/dL (33.0-35.0); MEAN CORPUSCULAR VOLUME 104.5 fL (80.0-100.0); MEAN PLATELET VOLUME 7.4 fL (7.4-11.0); MONOCYTES # (AUTO) 0.6 x10^3/uL (0.3-0.8); MONOCYTES % (AUTO) 8.5 % (0.0-13.0); NEUTROPHILS # (AUTO) 5.1 x10^3/uL (2.2-4.8); NEUTROPHILS % (AUTO) 74.1 % (42.0-75.0); PLATELET COUNT 315 X10^3/uL (150.0-450.0); RED BLOOD COUNT 2.54 X10^6/uL (4.7-6.0); RED CELL DISTRIBUTION WIDTH 18.7 % (11.6-16.5); WHITE BLOOD COUNT 6.9 X10^3/uL (3.6-10.0)
[2023-06-15 05:52] LABS: ALANINE AMINOTRANSFERASE 56 Units/L (12-78); ALBUMIN 2.7 g/dL (3.4-5.0); ALKALINE PHOSPHATASE 199 Units/L (46-116); ASPARTATE AMINO TRANSFERASE 130 Units/L (15-37); BLOOD UREA NITROGEN 7 mg/dL (7-18); CALCIUM 8.4 mg/dL (8.5-10.1); CARBON DIOXIDE 27.6 mmol/L (21-32); CHLORIDE 100 mmol/L (98-107); COR CA(FOR HYPOALB) 9.4 mg/dL (8.5-10.1); COR NA(FOR HYPERGLY) 133 mmol/L (136-145); CREATININE 0.72 mg/dL (0.70-1.30); GLUCOSE 111 mg/dL (65-99); SODIUM 133 mmol/L (136-145); TOTAL PROTEIN 7.3 g/dL (6.4-8.2); eGFR NON BLACK RACES > 60 (>60)
[2023-06-15] MEDS: FOLTX PO SCH (10:11)
[2023-06-15] MEDS: LYRICA CAP 75 mg PO SCH ×2 (10:11→21:47)
[2023-06-15] MEDS: PROTONIX TAB 40 MG PO SCH (10:12)
[2023-06-15] MEDS: LOPRESSOR TAB 25 MG PO SCH ×2 (10:12→21:46)
[2023-06-15] MEDS: MOTRIN TAB 800 MG PO PRN (10:12)
[2023-06-15] MEDS: LIBRIUM PO PRN (10:12)
[2023-06-15] MEDS: DIPROLENE CREAM 0.05% TOP SCH (10:12)
[2023-06-15] MEDS: ZYMAXID EACHEYE SCH ×2 (10:12→22:29)
--- NOTE | 2023-06-15 16:54 | DR.CONSULT ---
CONSULT Consultation for Day of: Date: 06/07/23 Chief Complaint Chief Complaint: Weakness, N/V Allergies Allergies Allergy/AdvReac Type Severity Reaction Status Date / Time shellfish derived Allergy Verified 06/27/19 23:54 History of Present Illness History of Present Illness: Patient is a 48 y/o who is referred for anemia. Patient is a poor historian, but able to answer some questions. He does reports nausea, vomiting, and epigastric pain. Last colonoscopy was done 01/12/23, and showed tubular adenoma x2 (0.2cm and 0.3cm) and internal hemorrhoids. Patient had an EGD done at [facility] 12/2022, which showed gastritis. Patient admits to current alcohol use, drinks whisky daily. He is not on a PPI/H2 tg at home. Hgb 6.[address] showed hepatosplenomegaly, hepatic steatosis and pancreatic atrophy. Serologic liver workup has been done, workup was negative. Pt presented with reports of last 5 to 7 days he has been having increasing weakness associated with nausea and vomiting. He is having a lot of epigastric discomfort as well. He reports some dizziness as well. A CT of his brain was ordered in the emergency department that showed no acute intracranial process. Labs revealed he had hyperbilirubinemia and elevated AST. He was anemic with a hemoglobin of 6.9 and he has elevated iron levels as well as ferritin. His folate is very low at 2.4 but has a normal vitamin B12 level. The patient reports that he is a heavy drinker and drinks whiskey every day and he states he knows he needs to cut back and quit. His labs are consistent with chronic alcoholism Past Medical History Past Medical History: CHF, Depression and Hypertension Past Surgical History Surgical History: Ortho Surgery Family History Family Medical History: Diabetes Mellitus, Cancer, [place] and Sudden Cardiac Social History Alcohol Use: Occasionally Medications Home Medications: shellfish derived Allergy (Verified 06/27/19 23:54) CONTINUE taking the following medications ferrous sulfate 325 mg (65 mg iron) tablet (FeroSul) 325 mg PO DAILY 06/04/23 [History] fluoxetine 40 mg capsule 40 mg PO DAILY 06/04/23 [History] ibuprofen 800 mg tablet 800 mg PO TID PRN 06/04/23 [History] pregabalin 150 mg capsule 150 mg PO TID 06/04/23 [History] quetiapine 200 mg tablet 200 mg PO DAILY 06/04/23 [History] Review of Systems Constitutional: Weakness Eyes: No Symptoms Reported ENT: No Symptoms Reported Respiratory: No Symptoms Reported Cardiovascular: No Symptoms Reported Gastrointestinal: Nausea, Vomiting and Abdominal Pain (Epigastric) Genitourinary: See HPI Musculoskeletal: See HPI Skin: See HPI Neurological: See HPI Physical Exam Vital Signs: Vital Signs Pulse Rate 101 Pulse Rate 102 Pulse Rate 103 Pulse Rate 101 Pulse Rate 102 Pulse Rate 102 Pulse Rate 101 Pulse Rate 104 Pulse Rate 105 Pulse Rate 106 Pulse Rate 108 Pulse Rate 107 Pulse Rate 106 Pulse Rate 109 Respiratory Rate 26 Respiratory Rate 27 Respiratory Rate 34 Respiratory Rate 25 Respiratory Rate 18 Respiratory Rate 26 Respiratory Rate 28 Respiratory Rate 24 Respiratory Rate 16 Respiratory Rate 41 Respiratory Rate 35 Respiratory Rate 20 Respiratory Rate 28 Respiratory Rate 26 Respiratory Rate 31 Respiratory Rate 27 Respiratory Rate 29 Blood Pressure 120/83 Blood Pressure 137/60 Blood Pressure 128/78 O2 Sat by Pulse Oximetry 94 O2 Sat by Pulse Oximetry 93 O2 Sat by Pulse Oximetry 90 O2 Sat by Pulse Oximetry 94 O2 Sat by Pulse Oximetry 95 O2 Sat by Pulse Oximetry 96 O2 Sat by Pulse Oximetry 95 O2 Sat by Pulse Oximetry 95 Oriented: Person and Place Eyes: Normal Ear: Normal Nose: Normal Throat: Normal Respiratory: Clear Throughout Cardiovascular: Normal : Normal Auscultation: Bowel Sounds: Normal Tenderness: Epigastric Skin: Normal Musculoskeletal: Normal Psychiatric: Normal Mood Description: Calm Affect: Normal Speech Pattern: Appropriate Plan (1) Acute hypokalemia: Status: Resolved Plan: Per hospitalist (2) Hepatosplenomegaly: Status: Acute (3) Hepatic steatosis: Status: Acute Narrative Support Text: Liver cirrhosis, secondary to alcohol abuse Hepatic encephalopathy Plan: Continue Lactulose. If encephalopathy does not improve, recommend adding Xifaxin BID. (4) Pancreatic atrophy: Status: Acute (5) Diffuse abdominal pain: Status: Acute (6) Alcohol use disorder: Status: Acute Plan: Patient counseled on alcohol cessation. Continue detox protocol. (7) Folate deficiency: Status: Acute (8) Elevated ferritin level: Status: Acute (9) Macrocytic anemia: Status: Acute Plan: Monitor Hgb, transfuse as needed. Patient will also need an outpatient EGD.
--- NOTE | 2023-06-15 20:24 | PCM.PROG ---
Progress Note Progress Note for Day of Date of Exam: 06/15/23 Subjective Subjective: The patient is a 48-year-old male admitted for alcohol withdrawal and electrolyte abnormalities. He is over his alcoholic detox at this time however he is very weak but we have started physical therapy 2 days ago and he is getting stronger. We were planning on sending him home today but he was too weak to go home. We will continue physical therapy throughout the day and see how he is in the morning if he is strong enough to go home we will plan on discharging and then. Past Medical Family Social History Allergies: Allergies shellfish derived Allergy (Verified 06/27/19 23:54) Review of Systems ROS: Changes notes (describe) (Insomnia) Vital Signs and I&O's Vital Signs: Vital Signs Temperature 97.9 F Temperature 97.4 F Pulse Rate 91 Pulse Rate 83 Pulse Rate 78 Pulse Rate 83 Pulse Rate 80 Respiratory Rate 20 Respiratory Rate 18 Respiratory Rate 20 Blood Pressure 136/79 Blood Pressure 123/84 Blood Pressure 115/72 Blood Pressure 119/83 O2 Sat by Pulse Oximetry 96 O2 Sat by Pulse Oximetry 95 O2 Sat by Pulse Oximetry 92 O2 Sat by Pulse Oximetry 95 O2 Sat by Pulse Oximetry 96 Intake and Output: Intake & Output 06/13/23 06/14/23 06/15/23 06/16/23 11:59 11:59 11:59 11:59 Intake Total 1724 / 1724 620 / 620 1000 / 1000 480 / 480 Output Total 450 / 450 400 / 400 Balance 1724 / 1724 620 / 620 550 / 550 80 / 80 Physical Exam Oriented: Normal Eyes: Normal Ear: Normal Nose: Normal Throat: Normal Respiratory: Normal Cardiovascular: Normal : Normal Auscultation: Bowel Sounds: Normal Tenderness: Normal Skin: Normal Musculoskeletal: Normal Psychiatric: Normal Mood Description: Calm Affect: Normal Speech Pattern: Clear and Appropriate Laboratory and Diagnostics 06/15/23 05:12 06/15/23 05:12 Labs: Laboratory WBC 6.9 X10^3/uL (3.6-10.0) 06/15/23 05:12 RBC 2.54 X10^6/uL (4.7-6.0) L 06/15/23 05:12 Hgb 8.6 g/dL (13.5-18.0) L 06/15/23 05:12 Hct 26.5 % (42.0-54.0) L 06/15/23 05:12 MCV 104.5 fL (80.0-100.0) H 06/15/23 05:12 MCH 34.0 pg (27.0-34.0) 06/15/23 05:12 MCHC 32.6 g/dL (33.0-35.0) L 06/15/23 05:12 RDW 18.7 % (11.6-16.5) H 06/15/23 05:12 Plt Count 315 X10^3/uL (150.0-450.0) 06/15/23 05:12 Plt Count Comment Adequate (ADEQUATE) 06/13/23 04:35 MPV 7.4 fL (7.4-11.0) 06/15/23 05:12 Neut % (Auto) 74.1 % (42.0-75.0) 06/15/23 05:12 Lymph % (Auto) 14.8 % (21.0-51.0) L 06/15/23 05:12 [place] % (Auto) 8.5 % (0.0-13.0) 06/15/23 05:12 Eos % (Auto) 1.1 % (0.9-2.9) 06/15/23 05:12 Baso % (Auto) 1.5 % (0.2-1.0) H 06/15/23 05:12 Neut # (Auto) 5.1 x10^3/uL (2.2-4.8) H 06/15/23 05:12 Lymph # (Auto) 1.0 X10^3/uL (1.3-2.9) L 06/15/23 05:12 [place] # (Auto) 0.6 x10^3/uL (0.3-0.8) 06/15/23 05:12 Eos # (Auto) 0.1 x10^3/uL (0.0-0.2) 06/15/23 05:12 Baso # (Auto) 0.1 X10^3/uL (0.0-0.1) 06/15/23 05:12 Absolute Nucleated RBC 0.0 /100WBC 06/15/23 05:12 Plt Morphology Comment Normal (NORMAL) 06/13/23 04:35 RBC Morphology Abnormal (NORMAL) 06/13/23 04:35 Anisocytosis Slight A 06/13/23 04:35 Macrocytosis 1+ A 06/13/23 04:35 Tear Drop Cells Slight 06/13/23 04:35 Ovalocytes Present 06/05/23 04:56 Stomatocytes Slight A 06/13/23 04:35 Absolute Retic 0.0355 10^6/uL 06/05/23 04:56 Percent Retic 1.88 % (0.8-2.2) 06/05/23 04:56 PT 14.1 SECONDS (11.8-14.3) 06/12/23 04:25 INR Target Range - 06/12/23 04:25 INR 1.11 (0.8-1.3) 06/12/23 04:25 APTT 41.0 SECONDS (22.9-36.5) H 06/05/23 04:56 PTT Comment - 06/05/23 04:56 Sodium 133 mmol/L (136-145) L 06/15/23 05:12 Corrected Sodium 133 mmol/L (136-145) L 06/15/23 05:12 Potassium 4.0 mmol/L (3.5-5.1) 06/15/23 05:12 Chloride 100 mmol/L (98-107) 06/15/23 05:12 Carbon Dioxide 27.6 mmol/L (21-32) 06/15/23 05:12 BUN 7 mg/dL (7-18) 06/15/23 05:12 Creatinine 0.72 mg/dL (0.70-1.30) 06/15/23 05:12 Est GFR (MDRD) Af Amer > 60 (>60) 06/15/23 05:12 Est GFR (MDRD) Non-Af > 60 (>60) 06/15/23 05:12 Glucose 111 mg/dL (65-99) H 06/15/23 05:12 Calcium 8.4 mg/dL (8.5-10.1) L 06/15/23 05:12 Corrected Calcium 9.4 mg/dL (8.5-10.1) 06/15/23 05:12 Magnesium 2.2 mg/dL (2.0-2.9) 06/13/23 04:35 Iron 278 ug/dL (50-175) H 06/04/23 16:20 Iron 279 ug/dL (50-175) H 06/04/23 16:20 TIBC 323 ug/dL (250-450) 06/04/23 16:20 % Saturation 86.4 % (11.0-46.0) H 06/04/23 16:20 Transferrin 208 mg/dL (202-364) 06/04/23 16:20 Ferritin 1503 ng/mL (26-388) H 06/04/23 16:20 Total Bilirubin 1.30 mg/dL (0.2-1.0) H 06/15/23 05:12 AST 130 Units/L (15-37) H 06/15/23 05:12 ALT 56 Units/L (12-78) 06/15/23 05:12 Alkaline Phosphatase 199 Units/L (46-116) H 06/15/23 05:12 Ammonia 57 umol/L (11-32) H 06/14/23 11:58 Creatine Kinase 46 Units/L (39-308) 06/04/23 16:20 Troponin I High Sens 4.5 ng/L (4.0-60.0) 06/04/23 16:20 Total Protein 7.3 g/dL (6.4-8.2) 06/15/23 05:12 Albumin 2.7 g/dL (3.4-5.0) L 06/15/23 05:12 Globulin 4.6 g/dL (2.5-4.5) H 06/15/23 05:12 Albumin/Globulin Ratio 0.6 Ratio (1.1-2.1) L 06/15/23 05:12 Amylase 36 Units/L (25-115) 06/04/23 16:20 Lipase 66 Units/L (16-77) 06/04/23 16:20 Vitamin B12 475 pg/mL (193-986) 06/05/23 04:56 Folate 2.4 ng/mL (>8.6) L 06/05/23 04:56 Specimen Type Catherized urine 06/09/23 09:45 Urine Color [place] (YELLOW) 06/09/23 09:45 Urine Appearance Clear (CLEAR) 06/09/23 09:45 Urine pH 6.0 (5.0 - 8.0) 06/09/23 09:45 Ur Specific [place] 1.025 (1.000-1.030) 06/09/23 09:45 Urine Protein 2+ (NEGATIVE) 06/09/23 09:45 Urine Glucose (UA) Negative (NEGATIVE) 06/09/23 09:45 Urine Ketones 2+ (NEGATIVE) 06/09/23 09:45 Urine Blood Negative (NEGATIVE) 06/09/23 09:45 Urine Nitrite Negative (NEGATIVE) 06/09/23 09:45 Urine Bilirubin 1+ (NEGATIVE) 06/09/23 09:45 Urine Urobilinogen 4+ (NORMAL) 06/09/23 09:45 Ur Leukocyte Esterase Negative (NEGATIVE) 06/09/23 09:45 Urine RBC 0-2 /HPF (0-3) 06/09/23 09:45 Urine WBC 0-2 /HPF (0-5) 06/09/23 09:45 Ur Squamous Epith Cells Rare /HPF (NEGATIVE) 06/09/23 09:45 Urine Bacteria Trace /HPF (NEGATIVE) 06/09/23 09:45 Urine Mucus Many /HPF (NEGATIVE) 06/09/23 09:45 Ur Culture Indicated? No/not indicated 06/09/23 09:45 Stl Occult Blood (IFOB) Negative (NEGATIVE) 06/11/23 19:52 Urine Opiates Screen Positive (NEG=<300) 06/05/23 21:11 Urine Methadone Screen Negative (NEG=<300) 06/05/23 21:11 Ur Barbiturates Screen Negative (NEG=<200) 06/05/23 21:11 Ur Phencyclidine Scrn Negative (NEG=<25) 06/05/23 21:11 Ur Amphetamines Screen Negative (NEG=<1000) 06/05/23 21:11 U Benzodiazepines Scrn Negative (NEG=<200) 06/05/23 21:11 Urine Cocaine Screen Negative (NEG=<300) 06/05/23 21:11 U Marijuana (THC) Screen Negative (NEG=<50) 06/05/23 21:11 Ethyl Alcohol mg/dL < 3 mg/dL (0-19.9) 06/05/23 04:56 Blood Type Cancelled 06/09/23 13:36 Antibody Screen Cancelled 06/09/23 13:36 Crossmatch See Detail 06/09/23 13:36 Plan (1) Acute hypokalemia: Status: Resolved Plan: Potassium replacement protocol. (2) Hepatosplenomegaly: Status: Acute Plan: Follow-up consult with gastroenterology. (3) Hepatic steatosis: Status: Acute Plan: Follow-up gastroenterology consultation. (4) Pancreatic atrophy: Status: Acute Plan: Follow-up with gastroenterology consultation. (5) Diffuse abdominal pain: Status: Acute Plan: Monitor for improvement and pain control as needed. (6) Alcohol use disorder: Status: Acute Plan: Alcohol detox protocol. Counseled patient on alcohol cessation. (7) Folate deficiency: Status: Acute Plan: Continue folate 1 mg p.o. daily. (8) Elevated ferritin level: Status: Acute Plan: Discussed with gastroenterology to see if patient needs a workup for hemochromatosis or if they think that the high ferritin and iron levels are secondary to chronic alcohol ingestion. (9) Macrocytic anemia: Status: Acute Plan: Transfused 2 units of packed red blood cells today. Continue folate supplementation since the patient had a low folate level at 2.4.
[2023-06-15] MEDS: COLACE CAP 100 MG PO SCH (21:48)
[2023-06-16] MEDS: VALIUM PO PRN ×3 (01:08→16:18)
[2023-06-16] MEDS: NORCO 5/325 MG TAB PO PRN ×3 (04:45→23:35)
[2023-06-16 06:48] LABS: BASOPHILS # (AUTO) 0.1 X10^3/uL (0.0-0.1); BASOPHILS % (AUTO) 1.1 % (0.2-1.0); EOSINOPHILS # (AUTO) 0.1 x10^3/uL (0.0-0.2); EOSINOPHILS % (AUTO) 1.6 % (0.9-2.9); HEMATOCRIT 25.9 % (42.0-54.0); HEMOGLOBIN 8.4 g/dL (13.5-18.0); LYMPHOCYTES # (AUTO) 1.4 X10^3/uL (1.3-2.9); LYMPHOCYTES % (AUTO) 18.5 % (21.0-51.0); MEAN CORPUSCULAR HGB CONC 32.5 g/dL (33.0-35.0); MEAN CORPUSCULAR VOLUME 104.7 fL (80.0-100.0); MEAN PLATELET VOLUME 7.3 fL (7.4-11.0); MONOCYTES # (AUTO) 0.6 x10^3/uL (0.3-0.8); MONOCYTES % (AUTO) 8.1 % (0.0-13.0); NEUTROPHILS # (AUTO) 5.2 x10^3/uL (2.2-4.8); NEUTROPHILS % (AUTO) 70.7 % (42.0-75.0); PLATELET COUNT 332 X10^3/uL (150.0-450.0); RED BLOOD COUNT 2.47 X10^6/uL (4.7-6.0); WHITE BLOOD COUNT 7.3 X10^3/uL (3.6-10.0)
[2023-06-16 06:52] LABS: ALANINE AMINOTRANSFERASE 68 Units/L (12-78); ALBUMIN 2.8 g/dL (3.4-5.0); ALKALINE PHOSPHATASE 208 Units/L (46-116); ASPARTATE AMINO TRANSFERASE 156 Units/L (15-37); BLOOD UREA NITROGEN 6 mg/dL (7-18); CALCIUM 8.4 mg/dL (8.5-10.1); CARBON DIOXIDE 29.3 mmol/L (21-32); CHLORIDE 99 mmol/L (98-107); COR CA(FOR HYPOALB) 9.4 mg/dL (8.5-10.1); GLUCOSE 91 mg/dL (65-99); SODIUM 132 mmol/L (136-145); TOTAL PROTEIN 7.5 g/dL (6.4-8.2); eGFR NON BLACK RACES > 60 (>60)
[2023-06-16] MEDS: LYRICA CAP 75 mg PO SCH ×2 (08:35→20:18)
[2023-06-16] MEDS: FOLTX PO SCH (08:35)
[2023-06-16] MEDS: LOPRESSOR TAB 25 MG PO SCH ×2 (08:35→20:18)
[2023-06-16] MEDS: PROTONIX TAB 40 MG PO SCH (08:36)
[2023-06-16] MEDS: ZYMAXID EACHEYE SCH ×2 (09:00→21:28)
[2023-06-16] MEDS: DIPROLENE CREAM 0.05% TOP SCH (09:00)
--- NOTE | 2023-06-16 18:36 | PCM.PROG ---
Progress Note Progress Note for Day of Date of Exam: 06/16/23 Subjective Subjective: The patient is a 48-year-old male admitted for alcohol withdrawal and electrolyte abnormalities. The patient remains weak and is having difficulty ambulating. The family asked that we try getting on Medicaid or temporary Medicaid and try to get the patient into a care home for temporary rehab. We told him we would start working on that and let her know something since we could. The patient was also complaining of bilateral feet burning and stinging I told her this is likely neuropathic pain and we will get him started on something. Past Medical Family Social History Allergies: Allergies shellfish derived Allergy (Verified 06/27/19 23:54) Review of Systems ROS: Changes notes (describe) (Insomnia) Vital Signs and I&O's Vital Signs: Vital Signs Temperature 97.4 F Temperature 98.3 F Pulse Rate 91 Pulse Rate 88 Respiratory Rate 18 Respiratory Rate 18 Respiratory Rate 20 Respiratory Rate 20 Blood Pressure 134/67 Blood Pressure 121/60 O2 Sat by Pulse Oximetry 94 O2 Sat by Pulse Oximetry 95 Intake and Output: Intake & Output 06/13/23 06/14/23 06/15/23 06/16/23 11:59 11:59 11:59 11:59 Intake Total 1724 / 1724 620 / 620 1000 / 1000 952 / 952 Output Total 450 / 450 400 / 400 Balance 1724 / 1724 620 / 620 550 / 550 552 / 552 Physical Exam Oriented: Normal Eyes: Normal Ear: Normal Nose: Normal Throat: Normal Respiratory: Normal Cardiovascular: Normal : Normal Auscultation: Bowel Sounds: Normal Tenderness: Normal Skin: Normal Musculoskeletal: Normal Psychiatric: Normal Mood Description: Calm Affect: Normal Speech Pattern: Clear and Appropriate Laboratory and Diagnostics 06/16/23 05:24 06/16/23 05:24 Labs: Laboratory WBC 7.3 X10^3/uL (3.6-10.0) 06/16/23 05:24 RBC 2.47 X10^6/uL (4.7-6.0) L 06/16/23 05:24 Hgb 8.4 g/dL (13.5-18.0) L 06/16/23 05:24 Hct 25.9 % (42.0-54.0) L 06/16/23 05:24 MCV 104.7 fL (80.0-100.0) H 06/16/23 05:24 MCH 34.0 pg (27.0-34.0) 06/16/23 05:24 MCHC 32.5 g/dL (33.0-35.0) L 06/16/23 05:24 RDW 18.0 % (11.6-16.5) H 06/16/23 05:24 Plt Count 332 X10^3/uL (150.0-450.0) 06/16/23 05:24 Plt Count Comment Adequate (ADEQUATE) 06/13/23 04:35 MPV 7.3 fL (7.4-11.0) L 06/16/23 05:24 Neut % (Auto) 70.7 % (42.0-75.0) 06/16/23 05:24 Lymph % (Auto) 18.5 % (21.0-51.0) L 06/16/23 05:24 [place] % (Auto) 8.1 % (0.0-13.0) 06/16/23 05:24 Eos % (Auto) 1.6 % (0.9-2.9) 06/16/23 05:24 Baso % (Auto) 1.1 % (0.2-1.0) H 06/16/23 05:24 Neut # (Auto) 5.2 x10^3/uL (2.2-4.8) H 06/16/23 05:24 Lymph # (Auto) 1.4 X10^3/uL (1.3-2.9) 06/16/23 05:24 [place] # (Auto) 0.6 x10^3/uL (0.3-0.8) 06/16/23 05:24 Eos # (Auto) 0.1 x10^3/uL (0.0-0.2) 06/16/23 05:24 Baso # (Auto) 0.1 X10^3/uL (0.0-0.1) 06/16/23 05:24 Absolute Nucleated RBC 0.2 /100WBC 06/16/23 05:24 Plt Morphology Comment Normal (NORMAL) 06/13/23 04:35 RBC Morphology Abnormal (NORMAL) 06/13/23 04:35 Anisocytosis Slight A 06/13/23 04:35 Macrocytosis 1+ A 06/13/23 04:35 Tear Drop Cells Slight 06/13/23 04:35 Ovalocytes Present 06/05/23 04:56 Stomatocytes Slight A 06/13/23 04:35 Absolute Retic 0.0355 10^6/uL 06/05/23 04:56 Percent Retic 1.88 % (0.8-2.2) 06/05/23 04:56 PT 14.1 SECONDS (11.8-14.3) 06/12/23 04:25 INR Target Range - 06/12/23 04:25 INR 1.11 (0.8-1.3) 06/12/23 04:25 APTT 41.0 SECONDS (22.9-36.5) H 06/05/23 04:56 PTT Comment - 06/05/23 04:56 Sodium 132 mmol/L (136-145) L 06/16/23 05:24 Corrected Sodium TNP 06/16/23 05:24 Potassium 4.0 mmol/L (3.5-5.1) 06/16/23 05:24 Chloride 99 mmol/L (98-107) 06/16/23 05:24 Carbon Dioxide 29.3 mmol/L (21-32) 06/16/23 05:24 BUN 6 mg/dL (7-18) L 06/16/23 05:24 Creatinine 0.80 mg/dL (0.70-1.30) 06/16/23 05:24 Est GFR (MDRD) Af Amer > 60 (>60) 06/16/23 05:24 Est GFR (MDRD) Non-Af > 60 (>60) 06/16/23 05:24 Glucose 91 mg/dL (65-99) 06/16/23 05:24 Calcium 8.4 mg/dL (8.5-10.1) L 06/16/23 05:24 Corrected Calcium 9.4 mg/dL (8.5-10.1) 06/16/23 05:24 Magnesium 2.2 mg/dL (2.0-2.9) 06/13/23 04:35 Iron 278 ug/dL (50-175) H 06/04/23 16:20 Iron 279 ug/dL (50-175) H 06/04/23 16:20 TIBC 323 ug/dL (250-450) 06/04/23 16:20 % Saturation 86.4 % (11.0-46.0) H 06/04/23 16:20 Transferrin 208 mg/dL (202-364) 06/04/23 16:20 Ferritin 1503 ng/mL (26-388) H 06/04/23 16:20 Total Bilirubin 1.30 mg/dL (0.2-1.0) H 06/16/23 05:24 AST 156 Units/L (15-37) H 06/16/23 05:24 ALT 68 Units/L (12-78) 06/16/23 05:24 Alkaline Phosphatase 208 Units/L (46-116) H 06/16/23 05:24 Ammonia 57 umol/L (11-32) H 06/14/23 11:58 Creatine Kinase 46 Units/L (39-308) 06/04/23 16:20 Troponin I High Sens 4.5 ng/L (4.0-60.0) 06/04/23 16:20 Total Protein 7.5 g/dL (6.4-8.2) 06/16/23 05:24 Albumin 2.8 g/dL (3.4-5.0) L 06/16/23 05:24 Globulin 4.7 g/dL (2.5-4.5) H 06/16/23 05:24 Albumin/Globulin Ratio 0.6 Ratio (1.1-2.1) L 06/16/23 05:24 Amylase 36 Units/L (25-115) 06/04/23 16:20 Lipase 66 Units/L (16-77) 06/04/23 16:20 Vitamin B12 475 pg/mL (193-986) 06/05/23 04:56 Folate 2.4 ng/mL (>8.6) L 06/05/23 04:56 Specimen Type Catherized urine 06/09/23 09:45 Urine Color [place] (YELLOW) 06/09/23 09:45 Urine Appearance Clear (CLEAR) 06/09/23 09:45 Urine pH 6.0 (5.0 - 8.0) 06/09/23 09:45 Ur Specific [place] 1.025 (1.000-1.030) 06/09/23 09:45 Urine Protein 2+ (NEGATIVE) 06/09/23 09:45 Urine Glucose (UA) Negative (NEGATIVE) 06/09/23 09:45 Urine Ketones 2+ (NEGATIVE) 06/09/23 09:45 Urine Blood Negative (NEGATIVE) 06/09/23 09:45 Urine Nitrite Negative (NEGATIVE) 06/09/23 09:45 Urine Bilirubin 1+ (NEGATIVE) 06/09/23 09:45 Urine Urobilinogen 4+ (NORMAL) 06/09/23 09:45 Ur Leukocyte Esterase Negative (NEGATIVE) 06/09/23 09:45 Urine RBC 0-2 /HPF (0-3) 06/09/23 09:45 Urine WBC 0-2 /HPF (0-5) 06/09/23 09:45 Ur Squamous Epith Cells Rare /HPF (NEGATIVE) 06/09/23 09:45 Urine Bacteria Trace /HPF (NEGATIVE) 06/09/23 09:45 Urine Mucus Many /HPF (NEGATIVE) 06/09/23 09:45 Ur Culture Indicated? No/not indicated 06/09/23 09:45 Stl Occult Blood (IFOB) Negative (NEGATIVE) 06/11/23 19:52 Urine Opiates Screen Positive (NEG=<300) 06/05/23 21:11 Urine Methadone Screen Negative (NEG=<300) 06/05/23 21:11 Ur Barbiturates Screen Negative (NEG=<200) 06/05/23 21:11 Ur Phencyclidine Scrn Negative (NEG=<25) 06/05/23 21:11 Ur Amphetamines Screen Negative (NEG=<1000) 06/05/23 21:11 U Benzodiazepines Scrn Negative (NEG=<200) 06/05/23 21:11 Urine Cocaine Screen Negative (NEG=<300) 06/05/23 21:11 U Marijuana (THC) Screen Negative (NEG=<50) 06/05/23 21:11 Ethyl Alcohol mg/dL < 3 mg/dL (0-19.9) 06/05/23 04:56 Blood Type Cancelled 06/09/23 13:36 Antibody Screen Cancelled 06/09/23 13:36 Crossmatch See Detail 06/09/23 13:36 Plan (1) Generalized weakness: Status: Acute Plan: We will continue physical therapy at this time. Patient is not strong enough to go home as it takes somebody to help out with him in order to keep her from falling. The family wants us to try and get him Medicaid or temporary Medicaid in order to get him temporary rehab at the care home for physical therapy, so we will look into this. In the meantime, we will continue the current treatment. He is getting better and stronger daily at this time. (2) Acute hypokalemia: Status: Resolved Plan: Potassium replacement protocol. (3) Hepatosplenomegaly: Status: Acute Plan: Follow-up consult with gastroenterology. (4) Hepatic steatosis: Status: Acute Plan: Follow-up gastroenterology consultation. (5) Pancreatic atrophy: Status: Acute Plan: Follow-up with gastroenterology consultation. (6) Diffuse abdominal pain: Status: Acute Plan: Monitor for improvement and pain control as needed. (7) Alcohol use disorder: Status: Acute Plan: Alcohol detox protocol. Counseled patient on alcohol cessation. (8) Folate deficiency: Status: Acute Plan: Continue folate 1 mg p.o. daily. (9) Elevated ferritin level: Status: Acute Plan: Discussed with gastroenterology to see if patient needs a workup for hemochromatosis or if they think that the high ferritin and iron levels are secondary to chronic alcohol ingestion. (10) Macrocytic anemia: Status: Acute Plan: Transfused 2 units of packed red blood cells today. Continue folate supplementation since the patient had a low folate level at 2.4.
[2023-06-16] MEDS: COLACE CAP 100 MG PO SCH (20:18)
[2023-06-17] MEDS: VALIUM PO PRN (00:46)
[2023-06-17 07:12] LABS: ALANINE AMINOTRANSFERASE 63 Units/L (12-78); ALBUMIN 2.9 g/dL (3.4-5.0); ALKALINE PHOSPHATASE 198 Units/L (46-116); ASPARTATE AMINO TRANSFERASE 131 Units/L (15-37); BLOOD UREA NITROGEN 9 mg/dL (7-18); CALCIUM 8.4 mg/dL (8.5-10.1); CARBON DIOXIDE 26.5 mmol/L (21-32); CHLORIDE 99 mmol/L (98-107); COR CA(FOR HYPOALB) 9.3 mg/dL (8.5-10.1); CREATININE 0.88 mg/dL (0.70-1.30); GLUCOSE 93 mg/dL (65-99); POTASSIUM 4.1 mmol/L (3.5-5.1); SODIUM 133 mmol/L (136-145); TOTAL PROTEIN 7.6 g/dL (6.4-8.2); eGFR NON BLACK RACES > 60 (>60)
[2023-06-17 07:14] LABS: BASOPHILS # (AUTO) 0.1 X10^3/uL (0.0-0.1); EOSINOPHILS # (AUTO) 0.1 x10^3/uL (0.0-0.2); EOSINOPHILS % (AUTO) 1.1 % (0.9-2.9); LYMPHOCYTES # (AUTO) 1.2 X10^3/uL (1.3-2.9); MEAN CORPUSCULAR VOLUME 104.5 fL (80.0-100.0)
[2023-06-17 07:19] LABS: BASOPHILS % (AUTO) 1.8 % (0.2-1.0); HEMATOCRIT 25.9 % (42.0-54.0); HEMOGLOBIN 8.4 g/dL (13.5-18.0); LYMPHOCYTES % (AUTO) 16.2 % (21.0-51.0); MEAN CORPUSCULAR HEMOGLOBIN 33.9 pg (27.0-34.0); MEAN CORPUSCULAR HGB CONC 32.4 g/dL (33.0-35.0); MEAN PLATELET VOLUME 7.8 fL (7.4-11.0); MONOCYTES # (AUTO) 0.6 x10^3/uL (0.3-0.8); MONOCYTES % (AUTO) 7.7 % (0.0-13.0); NEUTROPHILS # (AUTO) 5.5 x10^3/uL (2.2-4.8); NEUTROPHILS % (AUTO) 73.2 % (42.0-75.0); PLATELET COUNT 335 X10^3/uL (150.0-450.0); RED BLOOD COUNT 2.48 X10^6/uL (4.7-6.0); RED CELL DISTRIBUTION WIDTH 18.3 % (11.6-16.5); WHITE BLOOD COUNT 7.5 X10^3/uL (3.6-10.0)
[2023-06-17 08:34] LABS: ANISOCYTOSIS SLIGHT; BASOPHILS % (MANUAL) 1 % (0-1); PLATELET MORPHOLOGY COMMENT NORMAL (NORMAL)
[2023-06-17 08:39] LABS: STOMATOCYTES PRESENT
[2023-06-17] MEDS: FOLTX PO SCH (09:06)
[2023-06-17] MEDS: LOPRESSOR TAB 25 MG PO SCH ×2 (09:06→20:03)
[2023-06-17] MEDS: LYRICA CAP 75 mg PO SCH ×2 (09:06→20:03)
[2023-06-17] MEDS: PROTONIX TAB 40 MG PO SCH (09:06)
[2023-06-17] MEDS: ZYMAXID EACHEYE SCH ×2 (09:07→20:05)
[2023-06-17] MEDS: DIPROLENE CREAM 0.05% TOP SCH (09:07)
[2023-06-17] MEDS ORDERED: HALDOL INJ IM PRN (11:03)
[2023-06-17] MEDS ORDERED: LYRICA CAP 75 mg PO ONE (11:49)
[2023-06-17] MEDS: MOTRIN TAB 800 MG PO PRN (13:35)
[2023-06-17] MEDS: ROXICODONE TAB 15 MG PO PRN (15:47)
--- NOTE | 2023-06-17 17:28 | PCM.PROG ---
Progress Note Progress Note for Day of Date of Exam: 06/17/23 Subjective Subjective: The patient is a 48-year-old male admitted for alcohol withdrawal and electrolyte abnormalities. The patient remains weak and is having difficulty ambulating. The patient was very restless last night and was urinating on the floor. He also states that his feet are still burning and that the medication is not helping with the burning pain. We will increase his Lyrica to 150 mg twice daily and change his pain medicine oxycodone 5 mg 1-2 p.o. every 4 hours as needed pain. We will discuss Medicaid placement with case management tomorrow. Past Medical Family Social History Allergies: Allergies shellfish derived Allergy (Verified 06/27/19 23:54) Review of Systems ROS: Changes notes (describe) (Insomnia) Vital Signs and I&O's Vital Signs: Vital Signs Temperature 99.2 F Pulse Rate 91 Respiratory Rate 20 Blood Pressure 114/62 O2 Sat by Pulse Oximetry 92 Intake and Output: Intake & Output 06/14/23 06/15/23 06/16/23 06/17/23 11:59 11:59 11:59 11:59 Intake Total 620 / 620 1000 / 1000 952 / 952 650 / 650 Output Total 450 / 450 400 / 400 Balance 620 / 620 550 / 550 552 / 552 650 / 650 Physical Exam Oriented: Normal Eyes: Normal Ear: Normal Nose: Normal Throat: Normal Respiratory: Normal Cardiovascular: Normal : Normal Auscultation: Bowel Sounds: Normal Tenderness: Normal Skin: Normal Musculoskeletal: Normal Psychiatric: Normal Mood Description: Calm Affect: Normal Speech Pattern: Clear and Appropriate Laboratory and Diagnostics 06/17/23 05:35 06/17/23 05:35 Labs: Laboratory WBC 7.5 X10^3/uL (3.6-10.0) 06/17/23 05:35 RBC 2.48 X10^6/uL (4.7-6.0) L 06/17/23 05:35 Hgb 8.4 g/dL (13.5-18.0) L 06/17/23 05:35 Hct 25.9 % (42.0-54.0) L 06/17/23 05:35 MCV 104.5 fL (80.0-100.0) H 06/17/23 05:35 MCH 33.9 pg (27.0-34.0) 06/17/23 05:35 MCHC 32.4 g/dL (33.0-35.0) L 06/17/23 05:35 RDW 18.3 % (11.6-16.5) H 06/17/23 05:35 Plt Count 335 X10^3/uL (150.0-450.0) 06/17/23 05:35 Plt Count Comment Adequate (ADEQUATE) 06/17/23 05:35 MPV 7.8 fL (7.4-11.0) 06/17/23 05:35 Neut % (Auto) 73.2 % (42.0-75.0) 06/17/23 05:35 Lymph % (Auto) 16.2 % (21.0-51.0) L 06/17/23 05:35 [place] % (Auto) 7.7 % (0.0-13.0) 06/17/23 05:35 Eos % (Auto) 1.1 % (0.9-2.9) 06/17/23 05:35 Baso % (Auto) 1.8 % (0.2-1.0) H 06/17/23 05:35 Neut # (Auto) 5.5 x10^3/uL (2.2-4.8) H 06/17/23 05:35 Lymph # (Auto) 1.2 X10^3/uL (1.3-2.9) L 06/17/23 05:35 [place] # (Auto) 0.6 x10^3/uL (0.3-0.8) 06/17/23 05:35 Eos # (Auto) 0.1 x10^3/uL (0.0-0.2) 06/17/23 05:35 Baso # (Auto) 0.1 X10^3/uL (0.0-0.1) 06/17/23 05:35 Absolute Nucleated RBC 0.6 /100WBC 06/17/23 05:35 Total Counted 100 06/17/23 05:35 Neutrophils % (Manual) 75 % (39-76) 06/17/23 05:35 Lymphocytes % (Manual) 14 % (13-43) 06/17/23 05:35 Monocytes % (Manual) 10 % (4-9) H 06/17/23 05:35 Basophils % (Manual) 1 % (0-1) 06/17/23 05:35 Plt Morphology Comment Normal (NORMAL) 06/17/23 05:35 RBC Morphology Abnormal (NORMAL) 06/17/23 05:35 Anisocytosis Slight A 06/17/23 05:35 Macrocytosis Slight A 06/17/23 05:35 Tear Drop Cells Slight 06/13/23 04:35 Ovalocytes Present 06/05/23 04:56 Stomatocytes Present 06/17/23 05:35 Absolute Retic 0.0355 10^6/uL 06/05/23 04:56 Percent Retic 1.88 % (0.8-2.2) 06/05/23 04:56 PT 14.1 SECONDS (11.8-14.3) 06/12/23 04:25 INR Target Range - 06/12/23 04:25 INR 1.11 (0.8-1.3) 06/12/23 04:25 APTT 41.0 SECONDS (22.9-36.5) H 06/05/23 04:56 PTT Comment - 06/05/23 04:56 Sodium 133 mmol/L (136-145) L 06/17/23 05:35 Corrected Sodium TNP 06/17/23 05:35 Potassium 4.1 mmol/L (3.5-5.1) 06/17/23 05:35 Chloride 99 mmol/L (98-107) 06/17/23 05:35 Carbon Dioxide 26.5 mmol/L (21-32) 06/17/23 05:35 BUN 9 mg/dL (7-18) 06/17/23 05:35 Creatinine 0.88 mg/dL (0.70-1.30) 06/17/23 05:35 Est GFR (MDRD) Af Amer > 60 (>60) 06/17/23 05:35 Est GFR (MDRD) Non-Af > 60 (>60) 06/17/23 05:35 Glucose 93 mg/dL (65-99) 06/17/23 05:35 Calcium 8.4 mg/dL (8.5-10.1) L 06/17/23 05:35 Corrected Calcium 9.3 mg/dL (8.5-10.1) 06/17/23 05:35 Magnesium 2.2 mg/dL (2.0-2.9) 06/13/23 04:35 Iron 278 ug/dL (50-175) H 06/04/23 16:20 Iron 279 ug/dL (50-175) H 06/04/23 16:20 TIBC 323 ug/dL (250-450) 06/04/23 16:20 % Saturation 86.4 % (11.0-46.0) H 06/04/23 16:20 Transferrin 208 mg/dL (202-364) 06/04/23 16:20 Ferritin 1503 ng/mL (26-388) H 06/04/23 16:20 Total Bilirubin 1.20 mg/dL (0.2-1.0) H 06/17/23 05:35 AST 131 Units/L (15-37) H 06/17/23 05:35 ALT 63 Units/L (12-78) 06/17/23 05:35 Alkaline Phosphatase 198 Units/L (46-116) H 06/17/23 05:35 Ammonia 57 umol/L (11-32) H 06/14/23 11:58 Creatine Kinase 46 Units/L (39-308) 06/04/23 16:20 Troponin I High Sens 4.5 ng/L (4.0-60.0) 06/04/23 16:20 Total Protein 7.6 g/dL (6.4-8.2) 06/17/23 05:35 Albumin 2.9 g/dL (3.4-5.0) L 06/17/23 05:35 Globulin 4.7 g/dL (2.5-4.5) H 06/17/23 05:35 Albumin/Globulin Ratio 0.6 Ratio (1.1-2.1) L 06/17/23 05:35 Amylase 36 Units/L (25-115) 06/04/23 16:20 Lipase 66 Units/L (16-77) 06/04/23 16:20 Vitamin B12 475 pg/mL (193-986) 06/05/23 04:56 Folate 2.4 ng/mL (>8.6) L 06/05/23 04:56 Specimen Type Catherized urine 06/09/23 09:45 Urine Color [place] (YELLOW) 06/09/23 09:45 Urine Appearance Clear (CLEAR) 06/09/23 09:45 Urine pH 6.0 (5.0 - 8.0) 06/09/23 09:45 Ur Specific [place] 1.025 (1.000-1.030) 06/09/23 09:45 Urine Protein 2+ (NEGATIVE) 06/09/23 09:45 Urine Glucose (UA) Negative (NEGATIVE) 06/09/23 09:45 Urine Ketones 2+ (NEGATIVE) 06/09/23 09:45 Urine Blood Negative (NEGATIVE) 06/09/23 09:45 Urine Nitrite Negative (NEGATIVE) 06/09/23 09:45 Urine Bilirubin 1+ (NEGATIVE) 06/09/23 09:45 Urine Urobilinogen 4+ (NORMAL) 06/09/23 09:45 Ur Leukocyte Esterase Negative (NEGATIVE) 06/09/23 09:45 Urine RBC 0-2 /HPF (0-3) 06/09/23 09:45 Urine WBC 0-2 /HPF (0-5) 06/09/23 09:45 Ur Squamous Epith Cells Rare /HPF (NEGATIVE) 06/09/23 09:45 Urine Bacteria Trace /HPF (NEGATIVE) 06/09/23 09:45 Urine Mucus Many /HPF (NEGATIVE) 06/09/23 09:45 Ur Culture Indicated? No/not indicated 06/09/23 09:45 Stl Occult Blood (IFOB) Negative (NEGATIVE) 06/11/23 19:52 Urine Opiates Screen Positive (NEG=<300) 06/05/23 21:11 Urine Methadone Screen Negative (NEG=<300) 06/05/23 21:11 Ur Barbiturates Screen Negative (NEG=<200) 06/05/23 21:11 Ur Phencyclidine Scrn Negative (NEG=<25) 06/05/23 21:11 Ur Amphetamines Screen Negative (NEG=<1000) 06/05/23 21:11 U Benzodiazepines Scrn Negative (NEG=<200) 06/05/23 21:11 Urine Cocaine Screen Negative (NEG=<300) 06/05/23 21:11 U Marijuana (THC) Screen Negative (NEG=<50) 06/05/23 21:11 Ethyl Alcohol mg/dL < 3 mg/dL (0-19.9) 06/05/23 04:56 Blood Type Cancelled 06/09/23 13:36 Antibody Screen Cancelled 06/09/23 13:36 Crossmatch See Detail 06/09/23 13:36 Plan (1) Generalized weakness: Status: Acute Plan: We will continue physical therapy at this time. Patient is not s chad enough to go home as it takes somebody to help out with him in order to keep her from falling. The family wants us to try and get him Medicaid or temporary Medicaid in order to get him temporary rehab [facility] the [place] [facility] therapy, so we will look into this. In the meantime, we will continue the current treatment. He is getting better and stronger daily at this time. (2) Acute hypokalemia: Status: Resolved Plan: Potassium replacement protocol. (3) Hepatosplenomegaly: Status: Acute Plan: Follow-up consult with gastroenterology. (4) Hepatic steatosis: Status: Acute Plan: Follow-up gastroenterology consultation. (5) Pancreatic atrophy: Status: Acute Plan: Follow-up with gastroenterology consultation. (6) Diffuse abdominal pain: Status: Acute Plan: Monitor for improvement and pain control as needed. (7) Alcohol use disorder: Status: Acute Plan: Alcohol detox protocol. Counseled patient on alcohol cessation. (8) Folate deficiency: Status: Acute Plan: Continue folate 1 mg p.o. daily. (9) Elevated ferritin level: Status: Acute Plan: Discussed with gastroenterology to see if patient needs a workup for hemochromatosis or if they think that the high ferritin and iron levels are secondary to chronic alcohol ingestion. (10) Macrocytic anemia: Status: Acute Plan: Transfused 2 units of packed red blood cells today. Continue folate supplementation since the patient had a low folate level at 2.4.
[2023-06-17] MEDS: COLACE CAP 100 MG PO SCH (20:03)
[2023-06-18 06:19] LABS: BASOPHILS % (AUTO) 0.2 % (0.2-1.0); EOSINOPHILS # (AUTO) 0.1 x10^3/uL (0.0-0.2); EOSINOPHILS % (AUTO) 1.5 % (0.9-2.9); HEMATOCRIT 25.9 % (42.0-54.0); HEMOGLOBIN 8.5 g/dL (13.5-18.0); LYMPHOCYTES # (AUTO) 1.2 X10^3/uL (1.3-2.9); LYMPHOCYTES % (AUTO) 21.7 % (21.0-51.0); MEAN CORPUSCULAR HEMOGLOBIN 34.4 pg (27.0-34.0); MEAN CORPUSCULAR HGB CONC 32.9 g/dL (33.0-35.0); MEAN CORPUSCULAR VOLUME 104.8 fL (80.0-100.0); MEAN PLATELET VOLUME 7.2 fL (7.4-11.0); MONOCYTES # (AUTO) 0.5 x10^3/uL (0.3-0.8); MONOCYTES % (AUTO) 9.5 % (0.0-13.0); NEUTROPHILS # (AUTO) 3.7 x10^3/uL (2.2-4.8); NEUTROPHILS % (AUTO) 67.1 % (42.0-75.0); PLATELET COUNT 272 X10^3/uL (150.0-450.0); RED BLOOD COUNT 2.47 X10^6/uL (4.7-6.0); RED CELL DISTRIBUTION WIDTH 17.5 % (11.6-16.5); WHITE BLOOD COUNT 5.5 X10^3/uL (3.6-10.0)
[2023-06-18 06:44] LABS: ALANINE AMINOTRANSFERASE 66 Units/L (12-78); ALBUMIN 2.8 g/dL (3.4-5.0); ALKALINE PHOSPHATASE 205 Units/L (46-116); ASPARTATE AMINO TRANSFERASE 146 Units/L (15-37); BLOOD UREA NITROGEN 9 mg/dL (7-18); CALCIUM 8.5 mg/dL (8.5-10.1); CARBON DIOXIDE 26.5 mmol/L (21-32); CHLORIDE 102 mmol/L (98-107); COR CA(FOR HYPOALB) 9.5 mg/dL (8.5-10.1); CREATININE 0.84 mg/dL (0.70-1.30); GLUCOSE 104 mg/dL (65-99); POTASSIUM 4.1 mmol/L (3.5-5.1); SODIUM 138 mmol/L (136-145); TOTAL PROTEIN 7.6 g/dL (6.4-8.2); eGFR NON BLACK RACES > 60 (>60)
[2023-06-18 07:43] LABS: BASOPHILS % (MANUAL) 1 % (0-1)
[2023-06-18 07:44] LABS: ANISOCYTOSIS SLIGHT; PLATELET MORPHOLOGY COMMENT NORMAL (NORMAL)
[2023-06-18] MEDS: FOLTX PO SCH (09:10)
[2023-06-18] MEDS: PROTONIX TAB 40 MG PO SCH (09:10)
[2023-06-18] MEDS: LYRICA CAP 75 mg PO SCH ×2 (09:10→20:25)
[2023-06-18] MEDS: ZYMAXID EACHEYE SCH ×2 (09:11→21:30)
[2023-06-18] MEDS: LOPRESSOR TAB 25 MG PO SCH ×2 (09:11→20:25)
[2023-06-18] MEDS: DIPROLENE CREAM 0.05% TOP SCH (09:11)
[2023-06-18] MEDS: MOTRIN TAB 800 MG PO PRN (11:49)
[2023-06-18] MEDS: VALIUM PO PRN (13:59)
[2023-06-18] MEDS: ROXICODONE TAB 15 MG PO PRN (17:57)
[2023-06-18] MEDS: COLACE CAP 100 MG PO SCH (20:25)
[2023-06-19 04:09] VITALS: O2SAT 95
[2023-06-19 06:37] LABS: BASOPHILS # (AUTO) 0.1 X10^3/uL (0.0-0.1); EOSINOPHILS # (AUTO) 0.1 x10^3/uL (0.0-0.2); EOSINOPHILS % (AUTO) 1.9 % (0.9-2.9); HEMATOCRIT 29.9 % (42.0-54.0); HEMOGLOBIN 9.5 g/dL (13.5-18.0); LYMPHOCYTES # (AUTO) 1.7 X10^3/uL (1.3-2.9); LYMPHOCYTES % (AUTO) 21.4 % (21.0-51.0); MEAN CORPUSCULAR HEMOGLOBIN 33.6 pg (27.0-34.0); MEAN CORPUSCULAR HGB CONC 31.8 g/dL (33.0-35.0); MEAN CORPUSCULAR VOLUME 105.6 fL (80.0-100.0); MEAN PLATELET VOLUME 7.4 fL (7.4-11.0); MONOCYTES # (AUTO) 0.7 x10^3/uL (0.3-0.8); MONOCYTES % (AUTO) 8.5 % (0.0-13.0); NEUTROPHILS # (AUTO) 5.2 x10^3/uL (2.2-4.8); NEUTROPHILS % (AUTO) 67.2 % (42.0-75.0); PLATELET COUNT 303 X10^3/uL (150.0-450.0); RED BLOOD COUNT 2.84 X10^6/uL (4.7-6.0); RED CELL DISTRIBUTION WIDTH 17.1 % (11.6-16.5); WHITE BLOOD COUNT 7.7 X10^3/uL (3.6-10.0)
[2023-06-19 06:55] LABS: ALANINE AMINOTRANSFERASE 73 Units/L (12-78); ALBUMIN 3.1 g/dL (3.4-5.0); ALKALINE PHOSPHATASE 232 Units/L (46-116); ASPARTATE AMINO TRANSFERASE 170 Units/L (15-37); BLOOD UREA NITROGEN 12 mg/dL (7-18); CALCIUM 8.7 mg/dL (8.5-10.1); CARBON DIOXIDE 25.8 mmol/L (21-32); CHLORIDE 101 mmol/L (98-107); COR CA(FOR HYPOALB) 9.4 mg/dL (8.5-10.1); CREATININE 0.89 mg/dL (0.70-1.30); GLUCOSE 106 mg/dL (65-99); POTASSIUM 4.1 mmol/L (3.5-5.1); SODIUM 137 mmol/L (136-145); TOTAL PROTEIN 8.5 g/dL (6.4-8.2); eGFR NON BLACK RACES > 60 (>60)
[2023-06-19 07:26] LABS: ANISOCYTOSIS SLIGHT; PLATELET MORPHOLOGY COMMENT NORMAL (NORMAL)
--- NOTE | 2023-06-19 08:57 | PCM.PROG ---
Progress Note Progress Note for Day of Date of Exam: 06/18/23 Subjective Subjective: The patient is a 48-year-old male admitted for alcohol withdrawal and electrolyte abnormalities. The patient is getting stronger. I will have him to do therapy again for 1 more day and plan on discharging home in the morning long as he does get. His labs and vital signs are currently stable Past Medical Family Social History Allergies: Allergies shellfish derived Allergy (Verified 06/27/19 23:54) Review of Systems ROS: Changes notes (describe) (Insomnia) Vital Signs and I&O's Vital Signs: Vital Signs Temperature 98.2 F Pulse Rate [Left Brachial] 94 Respiratory Rate 18 Blood Pressure [Right Arm] 143/82 O2 Sat by Pulse Oximetry 95 Intake and Output: Intake & Output 06/16/23 06/17/23 06/18/23 06/19/23 11:59 11:59 11:59 11:59 Intake Total 952 / 952 650 / 650 600 / 600 840 / 840 Output Total 400 / 400 Balance 552 / 552 650 / 650 600 / 600 840 / 840 Physical Exam Oriented: Normal Eyes: Normal Ear: Normal Nose: Normal Throat: Normal Respiratory: Normal Cardiovascular: Normal : Normal Auscultation: Bowel Sounds: Normal Tenderness: Normal Skin: Normal Musculoskeletal: Normal Psychiatric: Normal Mood Description: Calm Affect: Normal Speech Pattern: Clear and Appropriate Laboratory and Diagnostics 06/19/23 05:49 06/19/23 05:49 Labs: Laboratory WBC 7.7 X10^3/uL (3.6-10.0) 06/19/23 05:49 RBC 2.84 X10^6/uL (4.7-6.0) L 06/19/23 05:49 Hgb 9.5 g/dL (13.5-18.0) L 06/19/23 05:49 Hct 29.9 % (42.0-54.0) L 06/19/23 05:49 MCV 105.6 fL (80.0-100.0) H 06/19/23 05:49 MCH 33.6 pg (27.0-34.0) 06/19/23 05:49 MCHC 31.8 g/dL (33.0-35.0) L 06/19/23 05:49 RDW 17.1 % (11.6-16.5) H 06/19/23 05:49 Plt Count 303 X10^3/uL (150.0-450.0) 06/19/23 05:49 Plt Count Comment Adequate (ADEQUATE) 06/19/23 05:49 MPV 7.4 fL (7.4-11.0) 06/19/23 05:49 Neut % (Auto) 67.2 % (42.0-75.0) 06/19/23 05:49 Lymph % (Auto) 21.4 % (21.0-51.0) 06/19/23 05:49 Garland % (Auto) 8.5 % (0.0-13.0) 06/19/23 05:49 Eos % (Auto) 1.9 % (0.9-2.9) 06/19/23 05:49 Baso % (Auto) 1.0 % (0.2-1.0) 06/19/23 05:49 Neut # (Auto) 5.2 x10^3/uL (2.2-4.8) H 06/19/23 05:49 Lymph # (Auto) 1.7 X10^3/uL (1.3-2.9) 06/19/23 05:49 Garland # (Auto) 0.7 x10^3/uL (0.3-0.8) 06/19/23 05:49 Eos # (Auto) 0.1 x10^3/uL (0.0-0.2) 06/19/23 05:49 Baso # (Auto) 0.1 X10^3/uL (0.0-0.1) 06/19/23 05:49 Absolute Nucleated RBC 0.0 /100WBC 06/19/23 05:49 Total Counted 100 06/18/23 05:48 Neutrophils % (Manual) 70 % (39-76) 06/18/23 05:48 Lymphocytes % (Manual) 27 % (13-43) 06/18/23 05:48 Monocytes % (Manual) 1 % (4-9) L 06/18/23 05:48 Eosinophils % (Manual) 1 % (0-6) 06/18/23 05:48 Basophils % (Manual) 1 % (0-1) 06/18/23 05:48 Plt Morphology Comment Normal (NORMAL) 06/19/23 05:49 RBC Morphology Abnormal (NORMAL) 06/19/23 05:49 Anisocytosis Slight A 06/19/23 05:49 Macrocytosis 1+ A 06/19/23 05:49 Tear Drop Cells Slight 06/13/23 04:35 Ovalocytes Present 06/05/23 04:56 Stomatocytes Present 06/17/23 05:35 Absolute Retic 0.0355 10^6/uL 06/05/23 04:56 Percent Retic 1.88 % (0.8-2.2) 06/05/23 04:56 PT 14.1 SECONDS (11.8-14.3) 06/12/23 04:25 INR Target Range - 06/12/23 04:25 INR 1.11 (0.8-1.3) 06/12/23 04:25 APTT 41.0 SECONDS (22.9-36.5) H 06/05/23 04:56 PTT Comment - 06/05/23 04:56 Sodium 137 mmol/L (136-145) 06/19/23 05:49 Corrected Sodium TNP 06/19/23 05:49 Potassium 4.1 mmol/L (3.5-5.1) 06/19/23 05:49 Chloride 101 mmol/L (98-107) 06/19/23 05:49 Carbon Dioxide 25.8 mmol/L (21-32) 06/19/23 05:49 BUN 12 mg/dL (7-18) 06/19/23 05:49 Creatinine 0.89 mg/dL (0.70-1.30) 06/19/23 05:49 Est GFR (MDRD) Af Amer > 60 (>60) 06/19/23 05:49 Est GFR (MDRD) Non-Af > 60 (>60) 06/19/23 05:49 Glucose 106 mg/dL (65-99) H 06/19/23 05:49 Calcium 8.7 mg/dL (8.5-10.1) 06/19/23 05:49 Corrected Calcium 9.4 mg/dL (8.5-10.1) 06/19/23 05:49 Magnesium 2.2 mg/dL (2.0-2.9) 06/13/23 04:35 Iron 278 ug/dL (50-175) H 06/04/23 16:20 Iron 279 ug/dL (50-175) H 06/04/23 16:20 TIBC 323 ug/dL (250-450) 06/04/23 16:20 % Saturation 86.4 % (11.0-46.0) H 06/04/23 16:20 Transferrin 208 mg/dL (202-364) 06/04/23 16:20 Ferritin 1503 ng/mL (26-388) H 06/04/23 16:20 Total Bilirubin 0.90 mg/dL (0.2-1.0) 06/19/23 05:49 AST 170 Units/L (15-37) H 06/19/23 05:49 ALT 73 Units/L (12-78) 06/19/23 05:49 Alkaline Phosphatase 232 Units/L (46-116) H 06/19/23 05:49 Ammonia 57 umol/L (11-32) H 06/14/23 11:58 Creatine Kinase 46 Units/L (39-308) 06/04/23 16:20 Troponin I High Sens 4.5 ng/L (4.0-60.0) 06/04/23 16:20 Total Protein 8.5 g/dL (6.4-8.2) H 06/19/23 05:49 Albumin 3.1 g/dL (3.4-5.0) L 06/19/23 05:49 Globulin 5.4 g/dL (2.5-4.5) H 06/19/23 05:49 Albumin/Globulin Ratio 0.6 Ratio (1.1-2.1) L 06/19/23 05:49 Amylase 36 Units/L (25-115) 06/04/23 16:20 Lipase 66 Units/L (16-77) 06/04/23 16:20 Vitamin B12 475 pg/mL (193-986) 06/05/23 04:56 Folate 2.4 ng/mL (>8.6) L 06/05/23 04:56 Specimen Type Catherized urine 06/09/23 09:45 Urine Color Gisele (YELLOW) 06/09/23 09:45 Urine Appearance Clear (CLEAR) 06/09/23 09:45 Urine pH 6.0 (5.0 - 8.0) 06/09/23 09:45 Ur Specific [place] 1.025 (1.000-1.030) 06/09/23 09:45 Urine Protein 2+ (NEGATIVE) 06/09/23 09:45 Urine Glucose (UA) Negative (NEGATIVE) 06/09/23 09:45 Urine Ketones 2+ (NEGATIVE) 06/09/23 09:45 Urine Blood Negative (NEGATIVE) 06/09/23 09:45 Urine Nitrite Negative (NEGATIVE) 06/09/23 09:45 Urine Bilirubin 1+ (NEGATIVE) 06/09/23 09:45 Urine Urobilinogen 4+ (NORMAL) 06/09/23 09:45 Ur Leukocyte Esterase Negative (NEGATIVE) 06/09/23 09:45 Urine RBC 0-2 /HPF (0-3) 06/09/23 09:45 Urine WBC 0-2 /HPF (0-5) 06/09/23 09:45 Ur Squamous Epith Cells Rare /HPF (NEGATIVE) 06/09/23 09:45 Urine Bacteria Trace /HPF (NEGATIVE) 06/09/23 09:45 Urine Mucus Many /HPF (NEGATIVE) 06/09/23 09:45 Ur Culture Indicated? No/not indicated 06/09/23 09:45 Stl Occult Blood (IFOB) Negative (NEGATIVE) 06/11/23 19:52 Urine Opiates Screen Positive (NEG=<300) 06/05/23 21:11 Urine Methadone Screen Negative (NEG=<300) 06/05/23 21:11 Ur Barbiturates Screen Negative (NEG=<200) 06/05/23 21:11 Ur Phencyclidine Scrn Negative (NEG=<25) 06/05/23 21:11 Ur Amphetamines Screen Negative (NEG=<1000) 06/05/23 21:11 U Benzodiazepines Scrn Negative (NEG=<200) 06/05/23 21:11 Urine Cocaine Screen Negative (NEG=<300) 06/05/23 21:11 U Marijuana (THC) Screen Negative (NEG=<50) 06/05/23 21:11 Ethyl Alcohol mg/dL < 3 mg/dL (0-19.9) 06/05/23 04:56 Blood Type Cancelled 06/09/23 13:36 Antibody Screen Cancelled 06/09/23 13:36 Crossmatch See Detail 06/09/23 13:36 Plan (1) Generalized weakness: Status: Acute Plan: We will continue physical therapy at this time. Patient is not strong enough to go home as it takes somebody to help out with him in order to keep her from falling. The family wants us to try and get him Medicaid or temporary Medicaid in order to get him temporary rehab at the [facility] for physical therapy, so we will look into this. In the meantime, we will continue the current treatment. He is getting better and stronger daily at this time. (2) Acute hypokalemia: Status: Resolved Plan: Potassium replacement protocol. (3) Hepatosplenomegaly: Status: Acute Plan: Follow-up consult with gastroenterology. (4) Hepatic steatosis: Status: Acute Plan: Follow-up gastroenterology consultation. (5) Pancreatic atrophy: Status: Acute Plan: Follow-up with gastroenterology consultation. (6) Diffuse abdominal pain: Status: Acute Plan: Monitor for improvement and pain control as needed. (7) Alcohol use disorder: Status: Acute Plan: Alcohol detox protocol. Counseled patient on alcohol cessation. (8) Folate deficiency: Status: Acute Plan: Continue folate 1 mg p.o. daily. (9) Elevated ferritin level: Status: Acute Plan: Discussed with gastroenterology to see if patient needs a workup for hemochromatosis or if they think that the high ferritin and iron levels are secondary to chronic alcohol ingestion. (10) Macrocytic anemia: Status: Acute Plan: Transfused 2 units of packed red blood cells today. Continue folate supplementation since the patient had a low folate level at 2.4.
[2023-06-19] MEDS: FOLTX PO SCH (08:59)
[2023-06-19] MEDS: LYRICA CAP 75 mg PO SCH (08:59)
[2023-06-19] MEDS: MOTRIN TAB 800 MG PO PRN (09:00)
[2023-06-19] MEDS: PROTONIX TAB 40 MG PO SCH (09:00)
[2023-06-19] MEDS: LOPRESSOR TAB 25 MG PO SCH (09:00)
[2023-06-19 09:01] VITALS: RESP 20
[2023-06-19] MEDS: ZYMAXID EACHEYE SCH (09:02)
[2023-06-19] MEDS: DIPROLENE CREAM 0.05% TOP SCH (09:02)
[2023-06-19 11:12] VITALS: BP 121/64; PULSE 97; TEMP 98.3
== END 2023-06-19 10:45 | disposition home or self-care (01) | DRG 433 ==
LOC: ER 14:13 → ICU 22:36 → MED/SURG 06-15 15:50
PROVIDERS: ADMIT Family Medicine; ATTEND Family Medicine
DX: F41.8 Other specified anxiety disorders; K70.30 Alcoholic cirrhosis of liver without ascites; K29.00 Acute gastritis without bleeding; E53.8 Deficiency of other specified B group vitamins; R79.89 Other specified abnormal findings of blood chemistry; K76.6 Portal hypertension; D50.8 Other iron deficiency anemias; R26.89 Other abnormalities of gait and mobility; K70.40 Alcoholic hepatic failure without coma; R06.02 Shortness of breath; R16.2 Hepatomegaly with splenomegaly, not elsewhere classified; R79.1 Abnormal coagulation profile; R42 Dizziness and giddiness; F10.939 Alcohol use, unspecified with withdrawal, unspecified; K31.89 Other diseases of stomach and duodenum